=== PATIENT | female | born 1960 | race Asian ===

== ENCOUNTER 2021-01-11 15:01 | Outpatient (REF) | payer OTHER, SELFPAY ==
--- NOTE | ~2021-01-11 | MM_ITS ---
EXAMINATION: MM SCREENING DIGITAL BREAST TOMOSYNTHESIS, BILATERAL CLINICAL INFORMATION: Screening. Asymptomatic. The lifetime risk of breast cancer based on the Tyrer-Cuzick Model is 6.6%. COMPARISON: Mammography: June 02, 2018 and studies dating back to April 05, 2011 TECHNIQUE: Digital breast tomosynthesis is performed in both the craniocaudal and mediolateral oblique views along with computer-aided detection (CAD). Synthesized 2D images are generated from the tomosynthesis. FINDINGS: There are scattered areas of fibroglandular density (ACR BI-RADS breast composition Category b). There are no significant masses, abnormal calcifications, or other abnormalities. MM/MM tomosynthesis screening BI IMPRESSION: There are no significant changes from prior study. ASSESSMENT: BI-RADS 1: Negative RECOMMENDATION: Routine annual mammography screening. This patient's information was entered into a reminder system with a target due date for their next mammogram.
--- NOTE | ~2021-01-11 | MM_ITS ---
EXAMINATION: BONE DENSITOMETRY CLINICAL INDICATION: Menopausal. COMPARISON: Previous BD dated 06/02/2018 and baseline BD dated 08/24/2013. TECHNIQUE: Using a [employer] DXA System (software version: 13.1) manufactured by [employer], dual-energy x-ray absorptiometry was performed of the lumbar spine and left hip. The images are of good technical quality. Summary results are attached. FINDINGS: AP SPINE L1-L4: Current: BMD 1.243 g/cm2, Z-score 1.6, T-score 0.5, normal, 0.8% increase from previous, 1.9% decrease from baseline (<5% change is not significant). Prior: BMD 1.233 g/cm2. Baseline: BMD 1.267 g/cm2. LEFT FEMUR, NECK: Current: BMD 0.875 g/cm2, Z-score 0.0, T-score -1.2, osteopenia. Prior: BMD 0.930 g/cm2. Baseline: BMD 0.931 g/cm2. LEFT FEMUR, TOTAL: Current: BMD 1.019 g/cm2, Z-score 0.9, T-score 0.1, normal, 3.2% decrease from previous, 2.3% decrease from baseline (<5% change is not significant). Prior: BMD 1.053 g/cm2. Baseline: BMD 1.043 g/cm2. IDENTIFIED RISK FACTORS: Menopause, secondary osteoporosis. HISTORY OF FRACTURE: None listed. MEDICATIONS: Multivitamin. MM/XR DEXA axial skeleton IMPRESSION: 1. DIAGNOSIS: Osteopenia based on the lowest T-score value of -1.2 in the femoral neck applying World Health Organization criteria. 2. 10-YEAR FRACTURE RISK PREDICTION, FRAX: Major osteoporotic fracture (clinical spine, forearm, hip or shoulder) 4.1%. Hip fracture 0.3%. 3. Treatment Recommendations: NOF guidelines recommend consideration for treatment in postmenopausal women and men age 50 and older presenting with the following: -A hip or vertebral (clinical or morphometric) fracture. -T-score less than or equal to -2.5 at the femoral neck or spine after appropriate evaluation to exclude secondary causes. -Low bone mass at the hip or spine and a 10-year fracture probability by FRAX of greater than or equal to 3% for hip fracture or greater than or equal to 20% for major osteoporotic fracture based on the [place] adapted WHO algorithm. 4. Other Recommendations: All treatment decisions require clinical judgment and consideration of individual patient factors, including patient preferences, comorbidities, previous drug use, risk factors not captured in the FRAX model (e.g. frailty, falls, vitamin D deficiency, increased bone turnover, interval significant decline in bone density) and possible under or overestimation of fracture risk by FRAX. Additional medical evaluation for secondary cause of low bone mineral density may be appropriate. FUTURE SCAN RECOMMENDATION: People with diagnosed cases of osteoporosis or at high risk for fracture should have regular bone mineral density tests. For patients eligible for Medicare, routine testing is allowed once every 2 years. The testing frequency can be increased to one year for patients who have rapidly progressing disease, those who are receiving or discontinuing medical therapy to restore bone mass, or have additional risk factors.
== END 2021-01-11 15:02 | disposition home or self-care (01) ==
LOC: HO.MAMMO 15:01
PROVIDERS: PCP Pediatrics; Visit Provider Pediatrics
DX: Z12.31 Encounter for screening mammogram for malignant neoplasm of breast (principal); Z13.820 Encounter for screening for osteoporosis; M85.80 Other specified disorders of bone density and structure, unspecified site; Z78.0 Asymptomatic menopausal state; E55.9 Vitamin D deficiency, unspecified; Z79.899 Other long term (current) drug therapy
CPT/HCPCS: 77063; 77067; 77080

== ENCOUNTER 2021-09-17 08:25 | Outpatient (REF) | payer OTHER, SELFPAY ==
--- NOTE | ~2021-09-17 | US_ITS ---
EXAMINATION: US ABDOMEN COMPLETE CLINICAL INFORMATION: Right upper quadrant pain. COMPARISON: None TECHNIQUE: Real-time imaging of the abdominal viscera. FINDINGS: PANCREAS: Pancreas appears heterogeneous in echotexture. No focal lesion or ductal dilatation is seen. ABDOMINAL AORTA: The proximal, mid, and distal segments are normal in caliber. INFERIOR VENA CAVA: Visualized portions are normal. LIVER: Liver echotexture is normal. The liver is normal in size. The liver contour is normal. No focal hepatic lesion. There is no intrahepatic biliary duct dilatation seen. GALLBLADDER: Normal. The gallbladder is physiologically distended without evidence of stones, sludge, polyps, wall thickening or pericholecystic fluid. COMMON BILE DUCT: Normal in caliber measuring 0.5 cm in diameter. RIGHT KIDNEY: Normal. No hydronephrosis. No renal calculi or focal parenchymal lesions. The kidney measures 10.5 cm in maximum dimension. LEFT KIDNEY: Normal. No hydronephrosis. No renal calculi or focal parenchymal lesions. The kidney measures 10.8 cm in maximum dimension. SPLEEN: Normal. The spleen measures 8.4 cm in maximum dimension. FREE FLUID: None. US/US abdomen complete IMPRESSION: Heterogeneous appearance of the pancreas. Otherwise unremarkable exam.
== END 2021-09-17 08:26 | disposition home or self-care (01) ==
LOC: HO.US 08:25
PROVIDERS: PCP Pediatrics; Visit Provider Family Medicine
DX: R10.11 Right upper quadrant pain (principal)
CPT/HCPCS: 76700

== ENCOUNTER → 2021-10-11 08:58 | Outpatient (BNVA) | payer OTHER, SELFPAY | PROVIDERS: PCP Pediatrics; Referring Provider Pediatrics; Visit Provider Nurse Practitioner Family | DX: Z12.11 Encounter for screening for malignant neoplasm of colon (principal); R13.12 Dysphagia, oropharyngeal phase | CPT/HCPCS: 99202 ==

== ENCOUNTER 2021-11-09 10:03 | Day surgery (SDC) | payer OTHER, SELFPAY ==
--- NOTE | 2021-11-08 09:31 | P.CONAN_ITS ---
Documented by User: Noelle Benz NP 11/08/21 09:31 HPI - Anesthesia Eval Consult details Narrative: 61yo F for Upper Endoscopy and Colonoscopy [facility] Past Medical History Medical History Diabetes mellitus Dysphagia Elevated cholesterol HTN (hypertension) Family History Family History Mother HTN (hypertension) Cancer Father Paralysis Surgical History Surgical History History of cataract extraction Social History Social History Patient Tobacco Use Status: Never used Tobacco Use of substances other than those prescribed or required for medical reasons: No Advance Directives: No Advance Directives Information Provided: Yes Meds Allergies Allergy/AdvReac Type Severity Reaction Status Date / Time No Known Allergies Allergy Verified 11/09/21 10:16 Home Medications Medication Instructions Recorded Confirmed Last Taken Type alcohol swabs (Alcohol Prep Pads) pad TOPICAL DAILY 10/11/21 Unknown History aspirin 81 mg tablet,delayed 81 mg PO DAILY 10/11/21 11/07/21 History release chlorthalidone 25 mg tablet 12.5 mg PO DAILY 10/11/21 11/05/21 Unknown History cholecalciferol (vitamin D3) 50 50 mcg PO QAM 10/11/21 11/05/21 Unknown History mcg (2,000 unit) capsule dulaglutide 1.5 mg/0.5 mL mg SUBCUT QWEEK 10/11/21 Unknown History subcutaneous pen injector (Trulicity) ergocalciferol (vitamin D2) 1,250 1,250 mcg PO QWEEK 10/11/21 11/05/21 Unknown History mcg (50,000 unit) capsule insulin glargine 100 unit/mL (3 42 unit SUBCUT BEDTIME 10/11/21 11/05/21 Unknown History mL) subcutaneous pen (Lantus Solostar U-100 Insulin) lancets 33 gauge (TRUEplus Lancets) #100 ea 10/11/21 Unknown History lisinopril 40 mg tablet 40 mg PO QAM 10/11/21 11/05/21 Unknown History metformin 1,000 mg tablet 1,000 mg PO BID 10/11/21 11/05/21 Unknown History multivitamin-ferrous 1 tab PO QAM 10/11/21 11/05/21 Unknown History fumarate-folic acid 18 mg-400 mcg tablet (Certavite-Antioxidant) simvastatin 10 mg tablet 10 mg PO BEDTIME 10/11/21 11/05/21 Unknown History Exam Exam Date and Time: November 08, [id number] Assessment and Plan Assessment Anesthesia Assessment: Chart Reviewed Documented by User: Joselin Shay MD 11/09/21 10:48 [facility] Past Medical History Medical History Diabetes mellitus Dysphagia Elevated cholesterol HTN (hypertension) Family History Family History Mother HTN (hypertension) Cancer Father Paralysis Surgical History Surgical History History of cataract extraction History of Problems with Anesthesia: No Social History Social History Patient Tobacco Use Status: Never used Tobacco Use of substances other than those prescribed or required for medical reasons: No Advance Directives: No Advance Directives Information Provided: Yes Meds Allergies Allergy/AdvReac Type Severity Reaction Status Date / Time No Known Allergies Allergy Verified 11/09/21 10:16 Home Medications Medication Instructions Recorded Confirmed Last Taken Type alcohol swabs (Alcohol Prep Pads) pad TOPICAL DAILY 10/11/21 Unknown History aspirin 81 mg tablet,delayed 81 mg PO DAILY 10/11/21 11/07/21 History release chlorthalidone 25 mg tablet 12.5 mg PO DAILY 10/11/21 11/05/21 Unknown History cholecalciferol (vitamin D3) 50 50 mcg PO QAM 10/11/21 11/05/21 Unknown History mcg (2,000 unit) capsule dulaglutide 1.5 mg/0.5 mL mg SUBCUT QWEEK 10/11/21 Unknown History [facility] ergocalciferol (vitamin D2) 1,250 1,250 mcg PO QWEEK 10/11/21 11/05/21 Unknown History mcg (50,000 unit) capsule insulin glargine 100 unit/mL (3 42 unit SUBCUT BEDTIME 10/11/21 11/05/21 Unknown History mL) subcutaneous pen (Lantus Solostar U-100 Insulin) lancets 33 gauge (TRUEplus Lancets) #100 ea 10/11/21 Unknown History lisinopril 40 mg tablet 40 mg PO QAM 10/11/21 11/05/21 Unknown History metformin 1,000 mg tablet 1,000 mg PO BID 10/11/21 11/05/21 Unknown History multivitamin-ferrous 1 tab PO QAM 10/11/21 11/05/21 Unknown History fumarate-folic acid 18 mg-400 mcg tablet (Certavite-Antioxidant) simvastatin 10 mg tablet 10 mg PO BEDTIME 10/11/21 11/05/21 Unknown History Exam Airway Mallampati Class: II TM Dist: >3cm Neck ROM: Full Loose/Missing/Broken Teeth: No (RRR) Heart: RRR Lungs: CTA Assessment and Plan Final Anesthetic Review History of Problems with Anesthesia: No NPO: Yes ASA Class: II Final Preanesthetic Review: Meds/Allgs Chart Reviewed, Consent Obtained/Reviewed and Anes Risks/Benef Reviewed Patient Risk: Low Procedure Risk: Intermediate Anesthetic Plan Anesthetic Plan: MAC: Disposition: Standard PACU
[2021-11-09 10:11] VITALS: BMI 26.4
[2021-11-09 10:35] VITALS: BP 148/76; PULSE 78; RESP 16; TEMP 37; O2SAT 96
[2021-11-09 10:36] LABS: Glucose, Whole Blood 131 mg/dL (60-115)
[2021-11-09] MEDS: Lactated Ringers 1,000 ML 100 ML IVCONT (10:36)
--- NOTE | 2021-11-09 11:10 | MHC.SHP ---
Pre-Procedural Eval Section A Date of Service: 11/09/21 The patient is an INPATIENT: No Changes since office visit: Yes Patient answered all questions; No Cold of Flu in the past 2 weeks, No New Medical Problems and No Changes in Medication The History & Physical has been completed within 30 days and I have reviewed it.: Yes Section B Chief Complaint: Dysphagia, oropharyngeal phase,screening Allergies: Allergies Allergy/AdvReac Type Severity Reaction Status Date / Time No Known Allergies Allergy Verified 11/09/21 10:16 Plan I have reviewed the history and physical and performed a pertinent physical examination on my patient. No changes have occurred unless specified.
--- NOTE | 2021-11-09 11:11 | P.BOP_ITS ---
Brief Operative Note Date of Service: 11/09/21 Pre-op diagnosis: Colon cancer screening, intermittent dysphagia to solids Post-op diagnosis: other (Esophagitis, gastritis, gastric antral nodule, colon polyp, diverticulosis) Procedure: FLEXIBLE TRANSORAL UPPER GASTROINTESTINAL ENDOSCOPY WITH BIOPSIES AND COLONOSCOPY TILL CECUM WITH SNARE POLYPECTOMY UPPER ENDOSCOPY Consent: Indications for the procedure and potential complications of bleeding, perforation, reaction to medications and missed diagnosis were discussed with the patient and informed consent was obtained. Instrument: Olympus GIF H 190 mid size upper endoscope Monitoring: Vital signs and clinical assessment, continuous EKG monitoring, Pulse oximetry, Carbon Dioxide monitoring and blood pressure monitoring were done throughout the procedure. Procedure: The patient was placed in the left lateral decubitis position and pre-procedure medications were administered and a bite block was placed. The endoscope was inserted into the mouth and advanced under direct vision to the third part of duodenum. A careful inspection was made as the upper endoscope was withdrawn including a retroflexed examination of the proximal stomach; Findings and interventions are described below. Findings: Larynx: Normal Esophagus: GE junction at 36 cms - biopsies were obtained from the proximal esophagus to check for EOE. A single linear erosion from 32 to 34 cms. No Torres's. Stomach: A 1.5 to 2 cms benign appearing nodule with central erosion in the pre- pyloric area - multiple biopsies were obtained. Mild gastric erythema. Biopsies were obtained. Grade 2 flap valve on retroflexed examination of the cardia. Duodenum: Normal bulb and descending duodenum Intervention: Biopsies as noted above COLONOSCOPY PROCEDURE NOTE Consent: Indications for the procedure and potential complications of bleeding, perforation, reaction to medications and missed diagnosis were discussed with the patient and informed consent was obtained. Instrument: Olympus PCF H 190 L variable stiffness pediatric colonoscope Monitoring: Vital signs and clinical assessment, intermittent blood pressure monitoring, continuous EKG monitoring, Pulse oximetry and Carbon Dioxide monitoring were done throughout the procedure. Colon withdrawl time was 16 minutes. Procedure: The patient was placed in the left lateral decubitis position and pre-procedure medications were administered. After a digital rectal examination of the ano-rectum, the video colonoscope was inserted into the rectum and advanced through the colon to the cecum. The colonoscope was slowly withdrawn in a retrograde panoramic fashion and the colon mucosa was carefully examined including a retroflexed view of the rectum. Findings and interventions are described below. Procedure Difficulty: : Without difficulty Findings: Terminal Ileum: Not evaluated Cecum: Normal Ascending Colon: An 8 to 10 mm adenomatous appearing polyp in the proximal transverse colon removed with a cold snare. Transverse Colon: Normal Descending Colon: Normal Sigmoid Colon: Moderate diverticulosis Rectum: Normal Ano-rectum: Normal Colon preparation: Good after copious irrigation Impression and Post Procedure Diagnosis: Endoscopy Findings: ESOPHAGUS: GE junction at 36 cms - biopsies were obtained from the proximal esophagus to check for EOE. A single linear erosion from 32 to 34 cms. No Torres's STOMACH: A 1.5 to 2 cms benign appearing nodule with central erosion in the pre- pyloric area - multiple biopsies were obtained. Mild gastric erythema. Biopsies were obtained. Colonoscopy Findings: One medium sized polyp removed Moderate diverticulosis seen in the sigmoid colon Dysphagia can be due to esophageal spasm associated with GERD or esophageal motility disorder. Plan: Await pathology results Patient has an appointment on 11/30/21 in the GI Clinic with Lynn Camarillo FNP- [place] . If patient has continuing problems with dysphagia, consider further evaluation with a barium swallow. Repeat Colonoscopy interval based on path results - in 3 years if polyps are adenomatous and 10 years if polyps are hyperplastic. Above findings were reviewed with the patient and her daughter and GERD, colon p olyps and diverticulosis handouts were given in the discharge area Patient was advised to start omeprazole 20 mg daily for GERD - prescription was sent to her preferred pharmacy. Surgeon: Terry Freeman MD Anesthesia: MAC Was an Power Tool Repair Technician used for this Procedure?: No Power Tool Repair Technician: Ava Colbert Estimated blood loss (mL): 0 Pathology: other ( A- ANTRAL NODULES BIOPSIES B- GASTRIC ANTRUM - R/O H.PYLORI C- PROXIMAL ESOPHAGUS - R/O EOE D- ASCENDING COLON POLYP) Condition: stable Disposition: PACU
--- NOTE | 2021-11-09 11:11 | P.OP_ITS ---
Operative Note Operative Note Date of Service: 11/09/21 Narrative: Pre-op diagnosis: Colon cancer screening, intermittent dysphagia to solids Post-op diagnosis:?other (Esophagitis, gastritis, gastric antral nodule, colon polyp, diverticulosis) Procedure: FLEXIBLE TRANSORAL UPPER GASTROINTESTINAL ENDOSCOPY WITH BIOPSIES AND COLONOSCOPY TILL CECUM WITH SNARE POLYPECTOMY UPPER ENDOSCOPY Consent:?Indications for the procedure and potential complications of bleeding, perforation, reaction to medications and missed diagnosis were discussed with the patient and informed consent was obtained. Instrument:?Olympus GIF H 190 mid size upper endoscope Monitoring: Vital signs and clinical assessment, continuous EKG monitoring, Pulse oximetry, Carbon Dioxide monitoring and blood pressure monitoring were done throughout the procedure. Procedure:?The patient was placed in the left lateral decubitis position and pre-procedure medications were administered and a bite block was placed. The endoscope was inserted into the mouth and advanced under direct vision to the third part of duodenum. A careful inspection was made as the upper endoscope was withdrawn including a retroflexed examination of the proximal stomach; Findings and interventions are described below. Findings: Larynx:? Normal Esophagus:?GE junction at 36 cms - biopsies were obtained from the proximal esophagus to check for EOE. A single linear erosion from 32 to 34 cms. No Torres's. Stomach:?A 1.5 to 2 cms benign appearing nodule with central erosion in the pre- pyloric area - multiple biopsies were obtained.? Mild gastric erythema. Biopsies were obtained. Grade 2 flap valve on retroflexed examination of the cardia. Duodenum:?Normal bulb and descending duodenum Intervention:?Biopsies as noted above COLONOSCOPY PROCEDURE NOTE Consent:?Indications for the procedure and potential complications of bleeding, perforation, reaction to medications and missed diagnosis were discussed with the patient and informed consent was obtained. Instrument:?Olympus PCF H 190 L variable stiffness pediatric colonoscope Monitoring:?Vital signs and clinical assessment, intermittent blood pressure monitoring, continuous EKG monitoring, Pulse oximetry and Carbon Dioxide monitoring were done throughout the procedure. Colon withdrawl time was 16 minutes. Procedure:?The patient was placed in the left lateral decubitis position and pre-procedure medications were administered. After a digital rectal examination of the ano-rectum, the video colonoscope was inserted into the rectum and advanced through the colon to the cecum. The colonoscope was slowly withdrawn in a retrograde panoramic fashion and the colon mucosa was carefully examined including a retroflexed view of the rectum. Findings and interventions are described below. Procedure Difficulty:?: Without difficulty Findings: Terminal Ileum: Not evaluated Cecum:? Normal Ascending Colon:??An 8 to 10 mm adenomatous appearing polyp in the proximal transverse colon removed with a cold snare. Transverse Colon:??Normal Descending Colon:? Normal Sigmoid Colon:??Moderate diverticulosis Rectum:??Normal Ano-rectum:??Normal Colon preparation:? Good after copious irrigation Impression and Post Procedure Diagnosis: Endoscopy Findings: ESOPHAGUS: GE junction at 36 cms - biopsies were obtained from the proximal esophagus to check for EOE. A single linear erosion from 32 to 34 cms. No Torres's STOMACH: A 1.5 to 2 cms benign appearing nodule with central erosion in the pre- pyloric area - multiple biopsies were obtained.? Mild gastric erythema. Biopsies were obtained. Colonoscopy Findings: One medium sized polyp removed Moderate diverticulosis seen in the sigmoid colon Dysphagia can be due to esophageal spasm associated with GERD or esophageal motility disorder. Plan: Await pathology results Patient has an appointment on 11/30/21 in the GI Clinic with Lynn Camarillo FNP- [place] . If patient has continuing problems with dysphagia, consider further evaluation with a barium swallow. Repeat Colonoscopy interval based on path results - in 3 years if polyps are adenomatous and 10 years if polyps are hyperplastic. Above findings were reviewed with the patient and her daughter and GERD, colon polyps and diverticulosis handouts were given in the discharge area Patient was advised to start omeprazole 20 mg daily for GERD - prescription was sent to her preferred pharmacy. Surgeon: Terry Freeman MD Anesthesia:?MAC Was an Recreation Programmer used for this Procedure?:?No Recreation Programmer:?Ava Colbert Estimated blood loss (mL):?0 Pathology:?other ( A- ANTRAL NODULES BIOPSIES? B- GASTRIC ANTRUM - R/O H.PYLORI? C- PROXIMAL ESOPHAGUS - R/O EOE? D- ASCENDING COLON POLYP) Condition:?stable Disposition:?PACU
[2021-11-09 12:20] VITALS: BP 93/55; PULSE 87; RESP 16; TEMP 36.3; O2SAT 99
[2021-11-09 12:35] VITALS: BP 126/74; PULSE 69; RESP 18; O2SAT 99
[2021-11-09 12:50] VITALS: BP 160/76; PULSE 64; RESP 18; TEMP 36.6; O2SAT 99
== END 2021-11-09 13:32 | disposition home or self-care (01) ==
PROVIDERS: PCP Pediatrics; Visit Provider Internal Medicine Gastroenterology
PROC: (CPT 45385; principal; 2021-11-09 11:10)
DX: Z12.11 Encounter for screening for malignant neoplasm of colon (principal); D12.2 Benign neoplasm of ascending colon; K57.30 Diverticulosis of large intestine without perforation or abscess without bleeding; R13.12 Dysphagia, oropharyngeal phase; Z80.8 Family history of malignant neoplasm of other organs or systems; K20.80 Other esophagitis without bleeding; K29.50 Unspecified chronic gastritis without bleeding; B96.81 Helicobacter pylori [H. pylori] as the cause of diseases classified elsewhere; K31.7 Polyp of stomach and duodenum; I10 Essential (primary) hypertension; E78.00 Pure hypercholesterolemia, unspecified; E11.9 Type 2 diabetes mellitus without complications; Z79.4 Long term (current) use of insulin; Z79.899 Other long term (current) drug therapy; Z79.82 Long term (current) use of aspirin
CPT/HCPCS: 45385; 43239; 82947; 88305; 88342

== ENCOUNTER → 2021-11-30 10:14 | Outpatient (BNVA) | payer OTHER, SELFPAY | PROVIDERS: PCP Pediatrics; Referring Provider Pediatrics; Visit Provider Nurse Practitioner Family | DX: K57.90 Diverticulosis of intestine, part unspecified, without perforation or abscess without bleeding (principal); K21.00 Gastro-esophageal reflux disease with esophagitis, without bleeding; A04.8 Other specified bacterial intestinal infections; R10.32 Left lower quadrant pain | CPT/HCPCS: 99212 ==

== ENCOUNTER 2022-04-16 11:36 | Outpatient (REF) | payer OTHER, SELFPAY ==
[2022-04-18 15:35] LABS: H Pylori Breath Test Negative (Negative)
== END 2022-04-16 11:37 | disposition home or self-care (01) ==
LOC: HO.LAB 11:36
PROVIDERS: PCP Pediatrics; Visit Provider Nurse Practitioner Family
DX: K58.9 Irritable bowel syndrome, unspecified (principal); K21.00 Gastro-esophageal reflux disease with esophagitis, without bleeding; A04.8 Other specified bacterial intestinal infections; R13.12 Dysphagia, oropharyngeal phase; R60.0 Localized edema
CPT/HCPCS: 36415; 83013; 86003; 99212

== ENCOUNTER → 2022-07-09 10:54 | Outpatient (BNVA) | payer OTHER, SELFPAY | PROVIDERS: PCP Pediatrics; Visit Provider Nurse Practitioner Family | DX: K21.00 Gastro-esophageal reflux disease with esophagitis, without bleeding (principal); K59.04 Chronic idiopathic constipation; R60.0 Localized edema; Z79.899 Other long term (current) drug therapy | CPT/HCPCS: 99212 ==

== ENCOUNTER 2022-09-17 09:39 | Outpatient (REF) | payer OTHER, SELFPAY ==
--- NOTE | ~2022-09-17 | XR_ITS ---
EXAMINATION: XR CHEST 2 VIEWS CLINICAL INFORMATION: Raynaud's syndrome. COMPARISON: None. TECHNIQUE: Frontal and lateral views of the chest were obtained. FINDINGS: The heart, great vessels, pulmonary vasculature and mediastinum are normal. The lungs show no focal infiltrate, effusion or pneumothorax. There is no acute osseous abnormality. XR/XR chest 2V IMPRESSION: No active cardiopulmonary disease.
[2022-09-17 11:44] LABS: MANUAL DIFF FLAG NO
[2022-09-17 12:38] LABS: Basophils Percent Auto 0.5 % (0-2); Eosinophils Absolute Auto 0.5 X10*3/uL (0.0-0.4); Eosinophils Percent Auto 6.8 % (0-4); Hematocrit 27.1 % (37.0-47.0); Hemoglobin 7.9 g/dl (12.0-16.0); Imm Gran Abs Auto 0.03 X10*3/uL (0.00-0.03); Imm Gran Pct Auto 0.4 % (0.0-0.4); Lymphocytes Absolute Auto 2.9 X10*3/uL (1.2-4.9); Lymphocytes Percent Auto 35.8 % (20-40); Mean Corpuscular HGB Conc 29.2 g/dl (31.0-35.0); Mean Corpuscular Hemoglobin 20.5 pg (27.0-33.0); Mean Corpuscular Volume 70.4 fL (80.0-98.0); Mean Platelet Volume 9.9 fL (9.4-12.3); Monocytes Absolute Auto 0.5 X10*3/uL (0.1-1.2); Monocytes Percent Auto 6.3 % (2-11); Neutrophils Percent Auto 50.2 % (45-73); Platelet Count 446 X10*3/uL (160-400); Red Blood Count 3.85 X10*6/uL (4.20-5.50); Red Cell Distribution Width 15.9 % (11.0-16.0)
[2022-09-17 13:21] LABS: Alanine Aminotransferase 12 U/L (0-31); Alkaline Phosphatase 70 U/L (39-117); Anion Gap 14 (12-20); Aspartate Amino Transferase 12 U/L (5-31); Bilirubin Total 0.3 mg/dL (0.0-1.0); Blood Urea Nitrogen 13 mg/dL (9-16); C Reactive Protein 0.55 mg/dL (< or = 0.50); Calcium 9.7 mg/dL (8.4-10.2); Carbon Dioxide 24 mmol/L (22-29); Chloride 109 mmol/L (96-108); Estimated Glomerular Filt Rate > 60; Glucose Random 170 mg/dL (60-115); Potassium 4.7 mmol/L (3.3-5.1); Sodium 142 mmol/L (135-145); Total Protein 6.9 g/dL (6.5-8.0)
[2022-09-17 13:52] LABS: Erythrocyte Sedimentation Rate 30 MM/HR (0-20)
[2022-09-17 15:02] LABS: Creatinine Urine 112.19 mg/dL; Protein/Creatinine Ratio, Ur 0.07 (<0.2); Total Protein Urine Random 8 mg/dL (<12)
[2022-09-20 13:43] LABS: Anti-Centromere B Antibodies >8.0 POS AI (<1.0 NEG); Antibody to SS-A Antigen <1.0 NEG AI (<1.0 NEG); Antibody to SS-B Antigen <1.0 NEG AI (<1.0 NEG); Scleroderma 70 Antibody <1.0 NEG AI (<1.0 NEG)
[2022-09-20 15:18] LABS: Anti Nuclear Antibody Pattern Nuclear, Centromere; Anti Nuclear Antibody Screen POSITIVE (NEGATIVE); Anti Nuclear Antibody Titer > OR = 1:1280 titer
== END 2022-09-17 09:40 | disposition home or self-care (01) ==
LOC: HO.LAB 09:39
PROVIDERS: PCP Pediatrics; Visit Provider Internal Medicine Rheumatology
DX: I73.00 Raynaud's syndrome without gangrene (principal); R05.9 Cough, unspecified; M79.643 Pain in unspecified hand; R01.1 Cardiac murmur, unspecified
CPT/HCPCS: 36415; 71046; 80053; 84156; 85025; 85652; 86038; 86039; 86140; 86235; 99202

== ENCOUNTER → 2022-09-25 13:10 | Outpatient (REF) | payer OTHER, SELFPAY ==
--- NOTE | 2022-09-25 13:13 | CA_ITS ---
Transthoracic Echocardiogram Patient (Last, First, Middle): Brandon Mcgee, Gender: Female Date of : 1960 Age: 62 Procedure Date: 09/25/2022 Procedure Type: Transthoracic Echocardiogram Location: OP Height: 160.02 cm Weight: 70.76 kg BSA: 1.74 m2 Heart Rate: bpm BP: 140 / 72 mmHg Insecticide Expert: TO Referring MD: Tc Alfreod MD Symptoms: R01.1 - Cardiac murmur, unspecified Study Quality: Fair ECG Rhythm: Sinus Conclusions: - The left ventricular systolic function is normal. The calculated ejection fraction is 67% by biplane method. - There is mild septal asymmetric hypertrophy. - There is mild calcification of the aortic valve. - No obvious valvular pathology seen on this study. Findings Left Ventricle Normal left ventricular cavity size. There is normal left ventricular wall thickness. The left ventricular systolic function is normal. The calculated ejection fraction is 67% by biplane method. There is no evidence of regional wall motion abnormalities. Diastolic function is normal for age. There is mild septal asymmetric hypertrophy. LV peak GLS -17.4%. Right Ventricle Normal right ventricular cavity size and systolic function. Atria Both atria are normal in size. Aortic Valve There is a normal trileaflet aortic valve. There is mild calcification of the aortic valve. There is no aortic valve stenosis. There is no aortic valve regurgitation. Mitral Valve The mitral valve appears normal. There is no mitral valve regurgitation. There is no mitral valve stenosis. Pulmonic Valve The pulmonic valve is likely normal. Tricuspid Valve There is trace tricuspid valve regurgitation. Tricuspid regurgitation envelope is inadequate for calculation of right ventricular systolic pressure. Great Vessels The asc aorta is normal in size. Venous The inferior vena cava is normal in size and collapses greater than 50% with inspiration. Pericardium/Pleural There is no evidence of pericardial effusion. Prior Study Comparison No prior study available for comparison. Recommendations, Care & Conclusions No obvious valvular pathology seen on this study. Measurements 2D Linear Measurements IVSd: 0.93 0.6-0.9/0.6-1.0 cm LVIDd: 3.72 3.9-5.3/4.2-5.9 cm LVIDd Index: 2.14 2.4-3.2/2.2-3.1 cm/m2 LVIDs: 2.46 2.0-3.6 cm LVPWd: 0.76 0.7-1.1 cm LA Diam: 3.20 2.7-3.8/3.0-4.0 cm LAIDs Index: 1.84 1.5-2.3 cm/m2 LV Mass: 111.50 67-162/88-224 g LV Mass Index: 64.08 43-95/49-115 g/m2 LVOT Diam: 1.80 3.0+(-)1.3 cm 2D Systolic Function EF 4C: 64.70 >55% EF 2C: 68.00 >55% EF BiP: 66.80 >55% Mitral Valve MV Pk E: 0.94 MV PK A: 1.05 MV Decel Time: 169.00 E/A: 0.90 E'Lateral: 8.59 E'Medial: 7.40 E/E' Med: 12.70 E/E' Lat: 10.90 PHT: 49.00 MVA PHT: 4.49 Decel [place]: 5.56 Aortic Valve AoV Pk Nick: 2.06 AoV Mn Nick: 1.39 AoV VTI: 0.40 AoV Pk Grad: 17.00 Aov Mn Grad: 9.00 ISABELLA Cont.VTI: 1.70 LVOT LVOT Pk Nick: 1.40 LVOT Mn Nick: 0.96 LVOT VTI: 0.27 LVOT Pk Grad: 8.00 LVOT Mn Grad: 4.00 LVOT Diam: 1.80 LVOT Area: 2.54 Diastolic Function MV Pk E: 0.94 MV Pk A: 1.05 E/A: 0.90 E'Medial: 7.40 E/E' Med: 12.70 E' Laterial: 8.59 E/E' Lat: 10.90 Right Ventricle TAPSE (mm): 26.90 TVS' Nick: 15.10 Tricuspid Valve RA Press: 3.00 Great Vessels Aorta Sinus of Valsalva: 2.89 2.0-3.5 cm Ao Asc: 3.30 2.1-3.4 cm Updated in Other Vendor System with Status of Final Veto Peters MD electronically signed on 09/26/2022 4:41:31 PM with status of Final
[2022-09-25 14:32] LABS: MANUAL DIFF FLAG NO
[2022-09-25 15:21] LABS: Basophils Absolute Auto 0.1 X10*3/uL (0.0-0.2); Basophils Percent Auto 0.8 % (0-2); Eosinophils Absolute Auto 0.4 X10*3/uL (0.0-0.4); Eosinophils Percent Auto 4.6 % (0-4); Hematocrit 27.2 % (37.0-47.0); Hemoglobin 7.9 g/dl (12.0-16.0); Imm Gran Abs Auto 0.05 X10*3/uL (0.00-0.03); Imm Gran Pct Auto 0.5 % (0.0-0.4); Lymphocytes Absolute Auto 2.9 X10*3/uL (1.2-4.9); Lymphocytes Percent Auto 30.3 % (20-40); Mean Corpuscular Hemoglobin 20.1 pg (27.0-33.0); Mean Platelet Volume 9.7 fL (9.4-12.3); Monocytes Absolute Auto 0.5 X10*3/uL (0.1-1.2); Monocytes Percent Auto 5.4 % (2-11); Neutrophils Absolute Auto 5.6 x10*3/uL (2.0-8.3); Neutrophils Percent Auto 58.4 % (45-73); Platelet Count 474 X10*3/uL (160-400); Red Blood Count 3.94 X10*6/uL (4.20-5.50); Red Cell Distribution Width 15.9 % (11.0-16.0); White Blood Count 9.6 X10*3/uL (4.8-10.8)
[2022-09-25 15:44] LABS: Iron 12 mcg/dL (30-160); Percent Iron Saturation 3 % (15-50); Total Iron Binding Capacity 399 mcg/dL (228-428); Unsaturated Iron Binding 387 ug/dL
[2022-09-27 12:53] LABS: Anti DNA DS Antibody <1 IU/mL; SM/Ribonucleoprotein Ab <1.0 NEG AI (<1.0 NEG); Smith Protein <1.0 NEG AI (<1.0 NEG)
[2022-09-28 06:34] LABS: Complement C3 145 mg/dL (83-193)
[2022-09-28 14:22] LABS: Haptoglobin 177 mg/dL (43-212)
== END ==
LOC: HO.CARD 13:10
PROVIDERS: Visit Provider Internal Medicine Rheumatology
DX: I73.00 Raynaud's syndrome without gangrene (principal); R01.1 Cardiac murmur, unspecified; R76.8 Other specified abnormal immunological findings in serum; D64.9 Anemia, unspecified
CPT/HCPCS: 36415; 83010; 83540; 85025; 86160; 86225; 86235; 93306; 93356

== ENCOUNTER → 2022-10-02 10:56 | Outpatient (BNVA) | payer OTHER, SELFPAY | PROVIDERS: PCP Pediatrics; Visit Provider Internal Medicine Rheumatology | DX: I73.00 Raynaud's syndrome without gangrene (principal); R76.8 Other specified abnormal immunological findings in serum; M34.1 CR(E)ST syndrome; D50.9 Iron deficiency anemia, unspecified | CPT/HCPCS: 99212 ==

== ENCOUNTER → 2022-10-03 09:00 | Outpatient (BNV) | payer BC, OTHER, SELFPAY | PROVIDERS: PCP Pediatrics; Visit Provider Internal Medicine | DX: D50.9 Iron deficiency anemia, unspecified (principal) | CPT/HCPCS: 99204; 99213; 99214; G2211 ==

== ENCOUNTER 2022-10-08 15:12 | Outpatient (REF) | payer OTHER, SELFPAY ==
--- NOTE | ~2022-10-08 | XR_ITS ---
EXAMINATION: XR BILATERAL HAND CLINICAL INFORMATION: Bilateral hand pain. COMPARISON: None. TECHNIQUE: 3 views each hand. FINDINGS: RIGHT HAND: There is no visible fracture, dislocation or subluxation is seen. There is loss of PIP and DIP joint space. No bony erosive changes. No soft tissue swelling. No fracture or dislocation. LEFT HAND: There is mild loss of PIP and DIP joint spaces without any erosive changes or loose bodies. No osteopenia. No acute fracture or dislocation. Soft tissues are unremarkable. XR/XR hand RT min 3V IMPRESSION: Mild degenerative changes PIP and DIP joints both hands. No visible acute fracture, dislocation or subluxation seen.
--- NOTE | ~2022-10-08 | XR_ITS ---
EXAMINATION: XR BILATERAL HAND CLINICAL INFORMATION: Bilateral hand pain. COMPARISON: None. TECHNIQUE: 3 views each hand. FINDINGS: RIGHT HAND: There is no visible fracture, dislocation or subluxation is seen. There is loss of PIP and DIP joint space. No bony erosive changes. No soft tissue swelling. No fracture or dislocation. LEFT HAND: There is mild loss of PIP and DIP joint spaces without any erosive changes or loose bodies. No osteopenia. No acute fracture or dislocation. Soft tissues are unremarkable. XR/XR hand LT min 3V IMPRESSION: Mild degenerative changes PIP and DIP joints both hands. No visible acute fracture, dislocation or subluxation seen.
[2022-10-08 16:01] LABS: MANUAL DIFF FLAG NO
[2022-10-08 16:27] LABS: Basophils Percent Auto 0.3 % (0-2); Eosinophils Absolute Auto 0.5 X10*3/uL (0.0-0.4); Eosinophils Percent Auto 5.7 % (0-4); Hematocrit 27.3 % (37.0-47.0); Hemoglobin 7.8 g/dl (12.0-16.0); Imm Gran Abs Auto 0.02 X10*3/uL (0.00-0.03); Imm Gran Pct Auto 0.2 % (0.0-0.4); Lymphocytes Absolute Auto 2.8 X10*3/uL (1.2-4.9); Lymphocytes Percent Auto 30.9 % (20-40); Mean Corpuscular HGB Conc 28.6 g/dl (31.0-35.0); Mean Platelet Volume 9.7 fL (9.4-12.3); Monocytes Absolute Auto 0.7 X10*3/uL (0.1-1.2); Monocytes Percent Auto 7.4 % (2-11); Neutrophils Absolute Auto 4.9 x10*3/uL (2.0-8.3); Neutrophils Percent Auto 55.5 % (45-73); Platelet Count 398 X10*3/uL (160-400); Red Cell Distribution Width 20.4 % (11.0-16.0); White Blood Count 8.9 X10*3/uL (4.8-10.8)
== END 2022-10-08 15:13 | disposition home or self-care (01) ==
LOC: HO.XRAY 15:12
PROVIDERS: PCP Pediatrics; Visit Provider Internal Medicine Rheumatology
DX: I73.00 Raynaud's syndrome without gangrene (principal); M34.1 CR(E)ST syndrome; D50.9 Iron deficiency anemia, unspecified
CPT/HCPCS: 36415; 73130; 85025

== ENCOUNTER 2022-10-10 08:18 | Outpatient (REF) | payer OTHER, SELFPAY ==
[2022-10-10 11:23] LABS: Lipase 97 U/L (8-78)
[2022-10-10 12:26] LABS: Vitamin B12 234 pg/mL (200-900)
[2022-10-14 21:24] LABS: Transglutaminase Ab IgG 1.3 U/mL; Transglutaminase IgA <1.0 U/mL
[2022-10-16 04:47] LABS: Vitamin A 55 mcg/dL (38-98)
[2022-10-16 18:08] LABS: Vitamin K1 676 pg/mL (130-1500)
[2022-10-16 19:17] LABS: Vitamin D 25-OH, D2 <4 ng/mL; Vitamin D 25-OH, D3 39 ng/mL; Vitamin D 25-OH, Total 39 ng/mL (30-100)
== END 2022-10-10 08:19 | disposition home or self-care (01) ==
LOC: HO.LAB 08:18
PROVIDERS: PCP Pediatrics; Visit Provider Nurse Practitioner Family
DX: K21.00 Gastro-esophageal reflux disease with esophagitis, without bleeding (principal); K58.2 Mixed irritable bowel syndrome; K59.04 Chronic idiopathic constipation; K86.89 Other specified diseases of pancreas; D50.9 Iron deficiency anemia, unspecified; R10.9 Unspecified abdominal pain; E55.9 Vitamin D deficiency, unspecified
CPT/HCPCS: 36415; 82306; 82607; 82746; 83690; 84590; 84597; 86003; 86364

== ENCOUNTER 2022-10-11 14:18 | Outpatient (REF) | payer OTHER, SELFPAY ==
[2022-10-22 13:09] LABS: Pancreatic Elastase-1 >500 mcg/g
== END 2022-10-11 14:19 | disposition home or self-care (01) ==
LOC: HO.LNP 14:18
PROVIDERS: Visit Provider Nurse Practitioner Family
DX: R10.9 Unspecified abdominal pain (principal)
CPT/HCPCS: 82656

== ENCOUNTER 2022-10-14 12:06 | Day surgery (SDC) | payer OTHER, SELFPAY ==
--- NOTE | 2022-10-11 12:31 | P.CONAN_ITS ---
Documented by User: Noelle Benz NP 10/11/22 12:32 HPI - Anesthesia Eval Consult details Narrative: 62yo F for Upper Endoscopy and Colonoscopy severe ALANA followed by Heme. Current tx with PO iron, pending infusion tx s/p [place] and EGD 11/2021 with [facility] Active Problems Active Problems: All Active Problems (Updated 10/11/22 @ 10:49 by Lynn Camarillo, [facility]) CREST syndrome (Acute) Iron deficiency anemia (Acute) Positive DAVI (antinuclear antibody) (Acute) Cough (Acute) Raynauds phenomenon (Acute) Heart murmur, systolic (Acute) Chronic hand pain (Acute) HTN (hypertension) (Acute) Elevated cholesterol (Acute) Diabetes mellitus (Acute) Bilateral lower extremity edema (Acute) Helicobacter pylori infection (Acute) GERD with esophagitis (Acute) Past Medical History Medical History Bilateral lower extremity edema Diabetes mellitus Dysphagia Elevated cholesterol Helicobacter pylori infection HTN (hypertension) Family History Family History Mother HTN (hypertension) Cancer Father Paralysis Surgical History Surgical History History of cataract extraction Hx of colonoscopy Hx of esophagogastroduodenoscopy History of Problems with Anesthesia: No Social History Social History Household Members: Spouse and Family Housing: House Alcohol intake: current Alcohol intake frequency: does not drink Patient Tobacco Use Status: Never used Tobacco Use of substances other than those prescribed or required for medical reasons: No Are you DNR?: No Advance Directives: No Advance Directives Information Provided: Yes Current occupational status: unemployed Meds Allergies Allergy/AdvReac Type Severity Reaction Status Date / Time No Known Allergies Allergy Verified 10/10/22 08:30 Home Medications Medication Instructions Recorded Confirmed Last Taken Type alcohol swabs (Alcohol Prep Pads) pad topical DAILY PRN Outbreak 10/11/21 10/02/22 Unknown History aspirin 81 mg tablet,delayed 81 mg PO DAILY 10/11/21 10/03/22 11/07/21 History release cholecalciferol (vitamin D3) 50 50 mcg PO QAM 10/11/21 10/03/22 Unknown History mcg (2,000 unit) capsule dulaglutide 1.5 mg/0.5 mL 0.05 mg subcut QWEEK 10/11/21 10/03/22 Unknown History subcutaneous pen injector (Trulicity) ergocalciferol (vitamin D2) 1,250 1,250 mcg PO QWEEK 10/11/21 10/03/22 Unknown History mcg (50,000 unit) capsule insulin glargine 100 unit/mL (3 42 unit subcut BEDTIME 10/11/21 10/03/22 Unknown History mL) subcutaneous pen (Lantus Solostar U-100 Insulin) lancets 33 gauge (TRUEplus Lancets) #100 ea 10/11/21 10/02/22 Unknown History lisinopril 40 mg tablet 40 mg PO QAM 10/11/21 10/03/22 Unknown History metformin 1,000 mg tablet 1,000 mg PO BID 10/11/21 10/03/22 Unknown History multivitamin-ferrous 1 tab PO QAM 10/11/21 10/03/22 Unknown History fumarate-folic acid 18 mg-400 mcg tablet (Certavite-Antioxidant) simvastatin 10 mg tablet 10 mg PO BEDTIME 10/11/21 10/03/22 Unknown History caoxcvbg-tze-thjbr acid 0.4 1 tab PO DAILY 09/17/22 10/03/22 Unknown History mg-lycopene 300 mcg-lutein 250 mcg tablet (Cerovite Senior) mupirocin 2 % topical ointment 1 appl topical TID 09/17/22 10/03/22 Unknown History ferrous sulfate 325 mg (65 mg 325 mg PO DAILY 10/02/22 10/03/22 Unknown History iron) tablet (FeroSul) nifedipine 60 mg tablet,extended 60 mg PO DAILY 10/02/22 10/03/22 Unknown History release Exam Exam Date and Time: October 11, 2022 1231 Pertinent Lab Results Pertinent Lab Results: Laboratory Tests 09/17/22 10/08/22 11:43 16:00 WBC 8.9 Hgb 7.8 L Hct 27.3 L Plt Count 398 Sodium 142 Potassium 4.7 Chloride 109 H Carbon Dioxide 24 BUN 13 Creatinine 0.83 Assessment and Plan Assessment Anesthesia Assessment: Chart Reviewed Final Anesthetic Review History of Problems with Anesthesia: No Documented by User: Tamy Layne MD 10/14/22 13:01 [facility] Past Medical History Medical History Bilateral lower extremity edema Diabetes mellitus Dysphagia Elevated cholesterol Helicobacter pylori infection HTN (hypertension) Family History Family History Mother HTN (hypertension) Cancer Father Paralysis Family history of problems with anesthesia: No Surgical History Surgical History History of cataract extraction Hx of colonoscopy Hx of esophagogastroduodenoscopy Social History Social History Household Members: Spouse and Family Housing: House Alcohol intake: current Alcohol intake frequency: does not drink Patient Tobacco Use Status: Never used Tobacco Use of substances other than those prescribed or required for medical reasons: No Are you DNR?: No Advance Directives: No Advance Directives Information Provided: Yes Current occupational status: unemployed Meds Allergies Allergy/AdvReac Type Severity Reaction Status Date / Time No Known Allergies Allergy Verified 10/10/22 08:30 Home Medications Medication Instructions Recorded Confirmed Last Taken Type alcohol swabs (Alcohol Prep Pads) pad topical DAILY PRN Outbreak 10/11/21 10/02/22 Unknown History aspirin 81 mg tablet,delayed 81 mg PO DAILY 10/11/21 10/03/22 11/07/21 History release cholecalciferol (vitamin D3) 50 50 mcg PO QAM 10/11/21 10/03/22 Unknown History mcg (2,000 unit) capsule dulaglutide 1.5 mg/0.5 mL 0.05 mg subcut QWEEK 10/11/21 10/03/22 Unknown History subcutaneous pen injector (Trulicity) ergocalciferol (vitamin D2) 1,250 1,250 mcg PO QWEEK 10/11/21 10/03/22 Unknown History mcg (50,000 unit) capsule insulin glargine 100 unit/mL (3 42 unit subcut BEDTIME 10/11/21 10/03/22 Unknown History mL) subcutaneous pen (Lantus Solostar U-100 Insulin) lancets 33 gauge (TRUEplus Lancets) #100 ea 10/11/21 10/02/22 Unknown History lisinopril 40 mg tablet 40 mg PO QAM 10/11/21 10/03/22 Unknown History metformin 1,000 mg tablet 1,000 mg PO BID 10/11/21 10/03/22 Unknown History multivitamin-ferrous 1 tab PO QAM 10/11/21 10/03/22 Unknown History fumarate-folic acid 18 mg-400 mcg tablet (Certavite-Antioxidant) simvastatin 10 mg tablet 10 mg PO BEDTIME 10/11/21 10/03/22 Unknown History kjornvta-xrn-uqglr acid 0.4 1 tab PO DAILY 09/17/22 10/03/22 Unknown History mg-lycopene 300 mcg-lutein 250 mcg tablet (Cerovite Senior) mupirocin 2 % topical ointment 1 appl topical TID 09/17/22 10/03/22 Unknown History ferrous sulfate 325 mg (65 mg 325 mg PO DAILY 10/02/22 10/03/22 Unknown History iron) tablet (FeroSul) nifedipine 60 mg tablet,extended 60 mg PO DAILY 10/02/22 10/03/22 Unknown History release Exam Airway Mallampati Class: II TM Dist: >3cm Neck ROM: Full Heart: rr Lungs: cta Assessment and Plan Assessment Anesthesia Assessment: Anesthesia Plan Discussed and Chart Reviewed Final Anesthetic Review Family History of Problems with Anesthesia: No NPO: Yes ASA Class: II Final Preanesthetic Review: No Changes in Pt Med Stat, Meds/Allgs Chart Reviewed, Consent Obtained/Reviewed and Anes Risks/Benef Reviewed Patient Risk: Low Procedure Risk: Low Anesthetic Plan Anesthetic Plan: MAC: Disposition: Standard PACU
[2022-10-14 12:35] VITALS: BMI 27.1
[2022-10-14 12:41] VITALS: BP 130/69; PULSE 87; RESP 17; TEMP 36.6; O2SAT 99
[2022-10-14] MEDS: Lactated Ringers 1,000 ML 100 ML IVCONT (12:47)
[2022-10-14 12:55] LABS: Glucose, Whole Blood 172 mg/dL (60-115)
--- NOTE | 2022-10-14 13:21 | MHC.SHP ---
Pre-Procedural Eval Section A Date of Service: 10/14/22 The patient is an INPATIENT: No Changes since office visit: Yes Patient answered all questions; No Cold of Flu in the past 2 weeks, No New Medical Problems and No Changes in Medication The History & Physical has been completed within 30 days and I have reviewed it.: Yes Section B Chief Complaint: GERD,Diarrhea Allergies: Allergies Allergy/AdvReac Type Severity Reaction Status Date / Time No Known Allergies Allergy Verified 10/10/22 08:30 Plan Diagnosis/Plan: Change (Proceed with EGD and colonoscopy) I have reviewed the history and physical and performed a pertinent physical examination on my patient. No changes have occurred unless specified. Time Spent With Patient Time: Total time managing care of this patient today ____ minutes.
--- NOTE | 2022-10-14 13:22 | PM.OP ---
Brief Operative Note Date of Service: 10/14/22 Pre-op diagnosis: Colon cancer screening, history of colon polyps, iron deficiency anemia, abdominal pain Post-op diagnosis: other (Gastritis, GAVE, Nodule GE junction, diverticulosis) Procedure: FLEXIBLE TRANSORAL UPPER GASTROINTESTINAL ENDOSCOPY WITH BIOPSIES AND APC TREATMENT OF GASTRIC ANTRAL VASCULAR ECTASIA (GAVE) AND COLONOSCOPY TILL CECUM WITH BIOPSIES Surgeon: Terry Freeman MD Anesthesia: MAC Was an Anesthesiologist And Critical Care used for this Procedure?: No Anesthesiologist And Critical Care: Amos Hernandez Estimated blood loss (mL): 2 Pathology: other (A) BX Small Bowel (R/O Celiac Disease) B) BX Gastric Antrum (R/O H.Pylori) C) BX Gastric Antrum (R/O GERD) D) BX Gastric Body E) BX Nodule GE Junction F) BX Left Colon (R/O Mi) Condition: stable Disposition: PACU
--- NOTE | 2022-10-14 13:23 | P.OP_ITS ---
Operative Note Operative Note Date of Service: 10/14/22 Narrative: Pre-op diagnosis: Colon cancer screening, history of colon polyps, iron deficiency anemia, abdominal pain Post-op diagnosis:?other (Gastritis, GAVE, Nodule GE junction, diverticulosis) Surgeon: Terry Freeman MD Anesthesia:?MAC FLEXIBLE TRANSORAL UPPER GASTROINTESTINAL ENDOSCOPY WITH BIOPSIES AND APC TREATMENT OF GASTRIC ANTRAL VASCULAR ECTASIA (GAVE) AND COLONOSCOPY TILL CECUM WITH BIOPSIES UPPER ENDOSCOPY Consent: Indications for the procedure and potential complications of bleeding, perforation, reaction to medications and missed diagnosis were discussed with the patient and informed consent was obtained. Instrument: Olympus GIF H 190 mid size upper endoscope Monitoring: Vital signs and clinical assessment, continuous EKG monitoring, Pulse oximetry, Carbon Dioxide monitoring and blood pressure monitoring were done throughout the procedure. Procedure: The patient was placed in the left lateral decubitis position and pre-procedure medications were administered and a bite block was placed. The endoscope was inserted into the mouth and advanced under direct vision to the third part of duodenum. A careful inspection was made as the upper endoscope was withdrawn including a retroflexed examination of the proximal stomach; Findings and interventions are described below. Findings: Larynx: Normal Esophagus: Mildly tortuous esophagus. GE junction at 38 cms - (biopsies obtained from the proximal esophagus during past EGD were negative for EOE). A 10 mm benign appearing nodule at GE junction - biopsied. No esophagitis or Torres's. Stomach:?Nodular appearing gastric mucosa in the gastric body - biopsied. 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 Mild gastric erythema. Biopsies were obtained. Grade 2 flap valve on retroflexed examination of the cardia. Duodenum:?Normal bulb and descending duodenum. Biopsies obtained from 3rd part of duodenum to check for celiac sprue. Duodenum: Normal bulb and descending duodenum Intervention: Biopsies as noted above COLONOSCOPY PROCEDURE NOTE Consent: Indications for the procedure and potential complications of bleeding, perforation, reaction to medications and missed diagnosis were discussed with the patient and informed consent was obtained. Instrument: Olympus PCF H 190 L variable stiffness pediatric colonoscope Monitoring: Vital signs and clinical assessment, intermittent blood pressure monitoring, continuous EKG monitoring, Pulse oximetry and Carbon Dioxide monitoring were done throughout the procedure. Colon withdrawl time was 17 minutes. Procedure: The patient was placed in the left lateral decubitis position and pre-procedure medications were administered. After a digital rectal examination of the ano-rectum, the video colonoscope was inserted into the rectum and advanced through the colon to the cecum. The colonoscope was slowly withdrawn in a retrograde panoramic fashion and the colon mucosa was carefully examined including a retroflexed view of the rectum. Findings and interventions are described below. Procedure Difficulty: : Without difficulty Findings: Terminal Ileum: Not evaluated Cecum: Normal Ascending Colon: Normal Transverse Colon: Normal Descending Colon: Normal Sigmoid Colon: Moderate diverticulosis Rectum: Normal Ano-rectum: Normal Colon preparation: Good after some irrigation Impression and Post Procedure Diagnosis: Endoscopy Findings: ESOPHAGUS: Mildly tortous esophagus. GE junction at 38 cms - (biopsies obtained from the proximal esophagus during past EGD were negative for EOE). A 10 mm benign appearing nodule at GE junction - biopsied. No esophagitis or Torres's. STOMACH: Nodular appearing gastric mucosa in the gastric body - biopsied. 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 Mild gastric erythema. Biopsies were obtained. DUODENUM: Normal - biopsied to check for celiac sprue Colonoscopy Findings: No polyps were detected. Random biopsies were obtained from the left colon to rule out microscopic colitis Moderate diverticulosis seen in the sigmoid colon Iron deficiency anemia is likely due to GAVE. Plan: Await pathology results Patient has an appointment on 10/31/22 in the GI Clinic with Lynn Camarillo FNP- BC . Repeat EGD with possible repeat APC in 3 months to fu on GAVE - EGD can be repeat earlier if patient has continued anemia on FU EGD. Repeat Colonoscopy in 5 years due to hx of adenomatous colon polyps. Above findings were reviewed with the patient and diverticulosis handouts were given in the discharge area
[2022-10-14 14:22] VITALS: BP 120/62; PULSE 77; RESP 16; TEMP 36.4; O2SAT 99
[2022-10-14 14:37] VITALS: BP 127/65; PULSE 85; RESP 20; O2SAT 98
[2022-10-14 14:52] VITALS: BP 134/55; PULSE 73; RESP 20; TEMP 36.3; O2SAT 99
== END 2022-10-14 15:41 | disposition home or self-care (01) ==
PROVIDERS: PCP Pediatrics; Visit Provider Internal Medicine Gastroenterology
PROC: (CPT 45380; principal; 2022-10-14 13:00)
DX: Z12.11 Encounter for screening for malignant neoplasm of colon (principal); Z86.010 Personal history of colon polyps; K57.30 Diverticulosis of large intestine without perforation or abscess without bleeding; R19.7 Diarrhea, unspecified; D50.9 Iron deficiency anemia, unspecified; K21.00 Gastro-esophageal reflux disease with esophagitis, without bleeding; K29.50 Unspecified chronic gastritis without bleeding; K31.811 Angiodysplasia of stomach and duodenum with bleeding; K22.82 Esophagogastric junction polyp; R60.0 Localized edema; I10 Essential (primary) hypertension; E78.00 Pure hypercholesterolemia, unspecified; E11.9 Type 2 diabetes mellitus without complications; Z79.4 Long term (current) use of insulin; Z79.899 Other long term (current) drug therapy
CPT/HCPCS: 45380; 43239; 43255; 82947; 88305; 88342

== ENCOUNTER 2022-10-18 10:04 | Outpatient (REF) | payer OTHER, SELFPAY | END 2022-10-18 10:05 | disposition home or self-care (01) | LOC: HO.MDS 10:04 | PROVIDERS: Visit Provider Internal Medicine | DX: D50.9 Iron deficiency anemia, unspecified (principal) | CPT/HCPCS: 96365; J1756 ==

== ENCOUNTER 2022-10-25 08:17 | Outpatient (REF) | payer OTHER, SELFPAY | END 2022-10-25 08:18 | disposition home or self-care (01) | LOC: HO.MDS 08:17 | PROVIDERS: Visit Provider Internal Medicine | DX: D50.9 Iron deficiency anemia, unspecified (principal) | CPT/HCPCS: 96365; J1756 ==

== ENCOUNTER 2022-10-30 13:30 | Outpatient (REF) | payer OTHER, SELFPAY ==
--- NOTE | ~2022-10-30 | CT_ITS ---
EXAMINATION: CT ABDOMEN AND PELVIS WITH CONTRAST CLINICAL INFORMATION: Abdominal pain. COMPARISON: Abdominal ultrasound 09/17/2021. TECHNIQUE: Multidetector volumetric images were obtained from the superior aspect of the liver through the pubic symphysis following administration 85 mL of Omnipaque 350 intravenous contrast. Sagittal and coronal reformatted images were obtained on the technologist's workstation. Oral contrast: No This CT examination was performed using dose optimization techniques as appropriate, variously including the following: *Automated exposure control *Adjustment of mA and/or kV according to patient size (this includes techniques or standardized protocols for targeted exams where dose is matched to indication/reason for exam; i.e. extremities or head) *Use of iterative reconstruction technique DLP: 750 mGy-cm FINDINGS: LUNG BASES: No focal consolidation or pleural effusion. LIVER, GALLBLADDER, AND BILIARY TREE: The liver is normal in size, shape, and attenuation. No focal hepatic lesion or biliary ductal dilatation is present. The gallbladder is unremarkable with no evidence of radiopaque gallstones, gallbladder wall thickening, or obvious pericholecystic inflammatory changes. PANCREAS: Unremarkable. SPLEEN: Unremarkable. ADRENAL GLANDS: Unremarkable. KIDNEYS AND URETERS: The kidneys are normal in size, shape, and attenuation. No hydronephrosis, hydroureter, or calculi seen. No perinephric stranding. BLADDER: Unremarkable. GASTROINTESTINAL TRACT: Oral contrast opacifies the entirety of the small bowel and colon up to the level of the transverse colon. No evidence of bowel obstruction. The appendix is not definitely identified, however there are no regional inflammatory changes to suspect acute appendicitis. No significant pericolonic inflammatory changes to suspect acute colitis or diverticulitis. Moderate to large degree of colonic stool burden, suggesting constipation. ABDOMINAL WALL: Tiny fat-containing umbilical hernia. LYMPH NODES: Enlarged but benign-appearing symmetric inguinal lymph nodes, likely reactive. No pathologically enlarged abdominal or pelvic lymph nodes. VASCULAR: Atherosclerotic disease. Abdominal aorta is of normal caliber. PELVIC VISCERA: Slightly hyperattenuating masslike observation in the right uterine fundus measuring approximately 2 cm, statistically favoring to represent a fibroid. Scattered uterine calcifications noted. The endometrial canal is not well delineated and suboptimally assessed. No free fluid. OSSEOUS STRUCTURES: No acute or aggressive appearing osseous abnormalities. Degenerative changes of the spine. CT/CT abdomen pelvis w IV con IMPRESSION: 1. Moderate to large degree of colonic stool burden suggesting constipation. 2. No evidence of bowel obstruction. 3. Masslike observation in the right uterine fundus, statistically favoring to represent a fibroid. The endometrial canal is not well delineated and suboptimally assessed. If indicated, further evaluation with a dedicated pelvic ultrasound could be obtained.
[2022-10-30] MEDS: iohexoL 350 MG/ML 100 ML INFUS..BTL IV (16:40)
[2022-10-30] MEDS: Barium Sulfate Oral (Berry) 450 ML ORAL.SUSP 900 ML PO (16:40)
== END 2022-10-30 13:31 | disposition home or self-care (01) ==
LOC: HO.CT 13:30
PROVIDERS: PCP Pediatrics; Visit Provider Nurse Practitioner Family
DX: R10.9 Unspecified abdominal pain (principal); K85.90 Acute pancreatitis without necrosis or infection, unspecified; D64.9 Anemia, unspecified
CPT/HCPCS: 74177; Q9967

== ENCOUNTER 2022-10-31 08:41 | Outpatient (REF) | payer OTHER, SELFPAY ==
[2022-10-31 10:24] LABS: Hematocrit 33.1 % (37.0-47.0); Hemoglobin 9.6 g/dl (12.0-16.0); Mean Corpuscular Volume 72.4 fL (80.0-98.0); Mean Platelet Volume 10.3 fL (9.4-12.3); Platelet Count 291 X10*3/uL (160-400); Red Blood Count 4.57 X10*6/uL (4.20-5.50); Red Cell Distribution Width 23.8 % (11.0-16.0); White Blood Count 6.9 X10*3/uL (4.8-10.8)
[2022-10-31 11:09] LABS: Blood Urea Nitrogen 13 mg/dL (9-16); Estimated Glomerular Filt Rate 52; Lipase 59 U/L (8-78)
== END 2022-10-31 08:42 | disposition home or self-care (01) ==
LOC: HO.LAB 08:41
PROVIDERS: PCP Pediatrics; Visit Provider Nurse Practitioner Family
DX: K21.00 Gastro-esophageal reflux disease with esophagitis, without bleeding (principal); K58.1 Irritable bowel syndrome with constipation; K59.04 Chronic idiopathic constipation; K31.819 Angiodysplasia of stomach and duodenum without bleeding; K85.00 Idiopathic acute pancreatitis without necrosis or infection; R10.11 Right upper quadrant pain
CPT/HCPCS: 36415; 82565; 83690; 84520; 85027; 99212

== ENCOUNTER 2022-11-01 09:00 | Outpatient (REF) | payer OTHER, SELFPAY | END 2022-11-01 09:01 | disposition home or self-care (01) | LOC: HO.MDS 09:00 | PROVIDERS: Visit Provider Internal Medicine | DX: D50.9 Iron deficiency anemia, unspecified (principal) | CPT/HCPCS: 96365; J1756 ==

== ENCOUNTER → 2022-11-06 10:03 | Outpatient (BNVA) | payer OTHER, SELFPAY | PROVIDERS: PCP Pediatrics; Visit Provider Internal Medicine Rheumatology | DX: I73.00 Raynaud's syndrome without gangrene (principal); D50.9 Iron deficiency anemia, unspecified; K31.819 Angiodysplasia of stomach and duodenum without bleeding; M25.511 Pain in right shoulder; M34.1 CR(E)ST syndrome | CPT/HCPCS: 99212 ==

== ENCOUNTER 2022-11-08 08:09 | Outpatient (REF) | payer OTHER, SELFPAY | END 2022-11-08 08:10 | disposition home or self-care (01) | LOC: HO.MDS 08:09 | PROVIDERS: Visit Provider Internal Medicine | DX: D50.9 Iron deficiency anemia, unspecified (principal) | CPT/HCPCS: 96365; J1756 ==

== ENCOUNTER 2022-11-08 09:12 | Outpatient (REF) | payer OTHER, SELFPAY ==
--- NOTE | ~2022-11-08 | XR_ITS ---
EXAMINATION: XR SHOULDER, RIGHT CLINICAL INFORMATION: Reason for Exam M25.511 - Pain in right shoulder COMPARISON: Humerus radiographs 01/04/2017 TECHNIQUE: Four views of the shoulder. FINDINGS: No acute fracture or dislocation. Mild degenerative changes of the acromioclavicular joint with degenerative spurring. 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 5 mm sclerotic density in the right humeral head may reflect a bone island, stable from 2016. Soft tissues are unremarkable. XR/XR shoulder RT min 2V IMPRESSION: 1. Mild degenerative changes of the acromioclavicular joint. 2. 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 3. 5 mm sclerotic density in the right humeral head may reflect a bone island, stable from 2017.
== END 2022-11-08 09:13 | disposition home or self-care (01) ==
LOC: HO.XRAY 09:12
PROVIDERS: PCP Pediatrics; Visit Provider Internal Medicine Rheumatology
DX: M25.511 Pain in right shoulder (principal)
CPT/HCPCS: 73030

== ENCOUNTER 2022-11-15 08:07 | Outpatient (REF) | payer OTHER, SELFPAY | END 2022-11-15 08:08 | disposition home or self-care (01) | LOC: HO.MDS 08:07 | PROVIDERS: Visit Provider Internal Medicine | DX: D50.9 Iron deficiency anemia, unspecified (principal) | CPT/HCPCS: 96365; J1756 ==

== ENCOUNTER 2022-12-02 08:07 | Outpatient (REF) | payer OTHER, SELFPAY ==
[2022-12-02 09:31] LABS: Hematocrit 37.7 % (37.0-47.0); Hemoglobin 11.3 g/dl (12.0-16.0); Mean Corpuscular Hemoglobin 22.4 pg (27.0-33.0); Mean Corpuscular Volume 74.8 fL (80.0-98.0); Mean Platelet Volume 10.2 fL (9.4-12.3); Platelet Count 284 X10*3/uL (160-400); Red Blood Count 5.04 X10*6/uL (4.20-5.50); Red Cell Distribution Width 22.4 % (11.0-16.0); White Blood Count 8.2 X10*3/uL (4.8-10.8)
[2022-12-02 09:46] LABS: Lipase 51 U/L (8-78)
== END 2022-12-02 08:08 | disposition home or self-care (01) ==
LOC: HO.LAB 08:07
PROVIDERS: PCP Pediatrics; Visit Provider Nurse Practitioner Family
DX: R10.9 Unspecified abdominal pain (principal); K31.819 Angiodysplasia of stomach and duodenum without bleeding; K21.00 Gastro-esophageal reflux disease with esophagitis, without bleeding; K58.9 Irritable bowel syndrome, unspecified; K59.01 Slow transit constipation
CPT/HCPCS: 36415; 83690; 85027; 99212

== ENCOUNTER 2023-01-27 12:51 | Outpatient (REF) | payer OTHER, SELFPAY | END 2023-01-27 12:52 | disposition home or self-care (01) | LOC: HO.MDS 12:51 | PROVIDERS: PCP Pediatrics; Visit Provider Internal Medicine | DX: D50.9 Iron deficiency anemia, unspecified (principal) | CPT/HCPCS: 96374; J1756 ==

== ENCOUNTER → 2023-02-06 08:47 | Outpatient (BNVA) | payer OTHER, SELFPAY | PROVIDERS: PCP Pediatrics; Visit Provider Internal Medicine Rheumatology | DX: I73.00 Raynaud's syndrome without gangrene (principal); M75.81 Other shoulder lesions, right shoulder; M34.1 CR(E)ST syndrome; R05.9 Cough, unspecified; K31.819 Angiodysplasia of stomach and duodenum without bleeding; D50.9 Iron deficiency anemia, unspecified | CPT/HCPCS: 99212 ==

== ENCOUNTER 2023-02-06 09:30 | Outpatient (REF) | payer OTHER, SELFPAY | END 2023-02-06 09:31 | disposition home or self-care (01) | LOC: HO.10HDL 09:30 | PROVIDERS: Visit Provider Internal Medicine Rheumatology | DX: I73.00 Raynaud's syndrome without gangrene (principal); K31.819 Angiodysplasia of stomach and duodenum without bleeding; D50.9 Iron deficiency anemia, unspecified; M75.81 Other shoulder lesions, right shoulder; R05.9 Cough, unspecified; M34.1 CR(E)ST syndrome | CPT/HCPCS: 36415; 83540; 85025; 85652; 86140 ==

== ENCOUNTER 2023-02-11 08:32 | Outpatient (REF) | payer OTHER, SELFPAY ==
--- NOTE | 2023-02-11 12:18 | PFT_ITS ---
INDICATION: syndrome. SPIROMETRY: The FEV1 to FVC 80% with an FEV1 of 1.98 L which is 81% predicted and FVC of 2.47 L which is 77% predicted. No significant response to bronchodilators noted. Maximum voluntary ventilation 45% predicted. LUNG VOLUMES: Total lung capacity 85% predicted with an expiratory residual volume of 50% predicted. DIFFUSION CAPACITY: DLCO of 72% predicted. COMPARISONS: Not available. INTERPRETATION: No obstructive nor restrictive ventilatory defect identified. No significant response to bronchodilators noted. The patient, however, has marked severe decrease in maximal voluntary ventilation which could be secondary to deconditioning although cannot rule out neuromuscular conditions. Lung volumes are normal and the patient does have a mild diffusion impairment. Clinical correlation warranted. Eric Soto MD MR/MODL / [id number]
== END 2023-02-11 08:33 | disposition home or self-care (01) ==
LOC: HO.RESP 08:32
PROVIDERS: PCP Pediatrics; Visit Provider Internal Medicine Rheumatology
DX: M34.1 CR(E)ST syndrome (principal); R05.9 Cough, unspecified
CPT/HCPCS: 94010; 94727; 94729

== ENCOUNTER → 2023-02-11 12:18 | Outpatient (BNV) | payer OTHER, SELFPAY | PROVIDERS: PCP Pediatrics; Visit Provider Hospitalist | DX: M34.1 CR(E)ST syndrome (principal) | CPT/HCPCS: 94060; 94727; 94729 ==

== ENCOUNTER 2023-03-04 15:10 | Outpatient (AMB) | payer OTHER, SELFPAY ==
--- NOTE | 2023-03-04 15:14 | MHC.OFFVIS ---
Intake Vital Signs 03/04/23 15:16 Height 5 ft 4 in Weight 158 lb BMI 27.1 Intake Visit Reasons: MOTION PICTURE SET GRIP-Right shoulder lesions Intake Note: right hand dominant No hx of injections. ongoing pain for 6-7 month Pt for 6 weeks and its going well Allergies No Known Allergies Allergy (Verified 03/04/23 15:16) HPI MOTION PICTURE SET GRIP-Right shoulder lesions HPI Details 62-year-old right hand dominant female who presents in the office today, as a new patient, for an evaluation of right shoulder lesions. The patient reports ongoing pain for 6-7 months. He confirms participating in physical therapy for 6 weeks and states it was going well. Patient has no history of cortisone injections. PENDING SALE TO [facility] Medical History Bilateral lower extremity edema Diabetes mellitus Dysphagia Elevated cholesterol GAVE (gastric antral vascular ectasia) Helicobacter pylori infection HTN (hypertension) Surgical History History of cataract extraction Hx of colonoscopy Hx of esophagogastroduodenoscopy Family History Mother HTN (hypertension) Cancer Father Paralysis Social History Household Members: Spouse and Family Housing: House Alcohol intake: current Alcohol intake frequency: does not drink Patient Tobacco Use Status: Never used Tobacco Current occupational status: unemployed Review of Systems Const All systems reviewed & are unremarkable except as noted in HPI and below Physical Exam Vital Signs: BMI result Body Mass Index 27.1 Const General: cooperative and no acute distress Orientation/consciousness: patient oriented x3 Resp Effort & Inspection: normal respiratory effort and able to speak in complete sentences Cardio Peripheral pulses: Peripheral pulses 2+ throughout Skin General skin exam: no rashes or lesions noted Neuro General: patient oriented x3 Extrem Other: Right shoulder: Normal to inspection. No ecchymosis, erythema, or edema. Full shoulder ROM in all planes. Negative cross-body reach. Negative empty can. Negative drop arm. Pain is located in her trap and along the spine of the scapula. Assessment & Plan Assessment & Plan (1) Myofascial pain on right side: Code(s): M79.18 - Myalgia, other site Plan Ms. Everardo is a 62-year-old right hand dominant female who presents in the office today, as a new patient, for an evaluation of right shoulder lesions. The patient reports ongoing pain for 6-7 months. He confirms participating in physical therapy for 6 weeks and states it was going well. Patient has no history of cortisone injections. The patient has already completed physical therapy, which she states helped some. She still complains of pain especially at night time. She confirms numbness and tingling in bilateral upper extremity. She was recently diagnosed with Raynaud?s. She is not experiencing any rotator cuff pathology on exam or history. Therefore, the recommendation is to follow up with Physiatry. Follow up with Orthopedics will be PRN, or sooner if needed. Medications: Discontinued docusate sodium 100 mg PO BEDTIME 90 caps 3RF K59.00 - Constipation, unspecified Patient Instructions: Scribed for Peggy Mcnair PA-C by Salma Puente, product manager medical device, on 03/04/2023 at 3:15 pm, EST. Your attestation Coding Level of Care Code New Pt Level 3 (76257) Diagnoses Myofascial pain on right side M79.18
[2023-03-04 15:16] VITALS: BMI 27.1
== END 2023-03-04 15:30 | disposition home or self-care (01) ==
PROVIDERS: PCP Pediatrics; Visit Provider Physician Assistant
DX: M79.18 Myalgia, other site (principal)
CPT/HCPCS: 99203

== ENCOUNTER → 2023-03-04 15:10 | Outpatient (BNVA) | payer OTHER, SELFPAY | PROVIDERS: PCP Pediatrics; Visit Provider Physician Assistant | DX: M79.18 Myalgia, other site (principal) | CPT/HCPCS: 99202 ==

== ENCOUNTER 2023-03-17 08:19 | Outpatient (REF) | payer OTHER, SELFPAY ==
[2023-03-17 10:29] LABS: Hematocrit 33.9 % (37.0-47.0); Hemoglobin 10.3 g/dl (12.0-16.0); Mean Corpuscular HGB Conc 30.4 g/dl (31.0-35.0); Mean Corpuscular Hemoglobin 25.5 pg (27.0-33.0); Mean Corpuscular Volume 83.9 fL (80.0-98.0); Platelet Count 325 X10*3/uL (160-400); Red Blood Count 4.04 X10*6/uL (4.20-5.50); White Blood Count 7.7 X10*3/uL (4.8-10.8)
== END 2023-03-17 08:20 | disposition home or self-care (01) ==
LOC: HO.LAB 08:19
PROVIDERS: PCP Pediatrics; Visit Provider Nurse Practitioner Family
DX: K21.00 Gastro-esophageal reflux disease with esophagitis, without bleeding (principal); K58.9 Irritable bowel syndrome, unspecified; K31.819 Angiodysplasia of stomach and duodenum without bleeding
CPT/HCPCS: 36415; 85027; 99212

== ENCOUNTER 2023-03-17 08:19 | Outpatient (AMB) | payer OTHER, SELFPAY ==
[2023-03-17 08:34] VITALS: BP 165/76; PULSE 87; BMI 27.2
--- NOTE | 2023-03-17 08:34 | A.OFFVIS_ITS ---
Intake Vital Signs 03/17/23 08:34 Height 5 ft 4 in Weight 158 lb 11.725 oz BMI 27.2 BP 165/76 H Blood Pressure Location Lt brachial Position Sitting Pulse 87 Intake Visit Reasons: 3 mnth follow up Intake Note: Brandon presents in office as a est.patient for a 3month f/u for Constipation PT CC: pt reports having no concerns pt denies any other GI Issues Estate Attorney Required: No Accompanied by: Family/Other Allergies No Known Allergies Allergy (Verified 03/17/23 08:34) HPI 3 mnth follow up HPI Details LAST VISIT: (1) GAVE (gastric antral vascular ectasia): ?Comment: seen on endoscopy 10/2022 ?Code(s): K31.819 - Angiodysplasia of stomach and duodenum without bleeding ?Plan: Will repeat upper endoscopy in the near future (2) GERD with esophagitis: ?Code(s): K21.00 - Gastro-esophageal reflux disease with esophagitis, without bleeding ?Qualifiers: ?Esophagitis bleeding:?without hemorrhage? Qualified Code(s):?K21.00 - Gastro-esophageal reflux disease with esophagitis, without bleeding ?Plan: Continue omeprazole in the morning half an hour before breakfast and famotidine at bedtime.? Discussed with patient avoiding dietary triggers and late night snacking.? Staying upright for minimal 3 hours after meals discussed with patient (3) IBS (irritable bowel syndrome): ?Code(s): K58.9 - Irritable bowel syndrome without diarrhea ?Qualifiers: ?Irritable bowel syndrome type:?without diarrhea? Qualified Code(s):? K58.9 - Irritable bowel syndrome without diarrhea ?Plan: Reports occasional postprandial cramping and bloating.? Patient will try elimination diet as best as she can. (4) Constipation: ?Code(s): K59.00 - Constipation, unspecified ?Qualifiers: ?Constipation type:?slow transit constipation? Qualified Code(s):?K59.01 - Slow transit constipation ?Plan: Continue.? Patient was encouraged to increase fluid intake and activity to promote better bowel motility.? I will see her in 3 months, sooner on as needed basis.? Patient is agreeable to this plan and verbalizes understanding of instructions.? She was given the opportunity to ask questions and questions answered. TODAY'S VISIT Patient is here today for follow-up. Patient has not had upper endoscopy yet to evaluate for gastric antral vascular ectasia. Patient continues be anemic. Had iron infusions, however now she is on p.o. twice a day, taking it with food, recommended to take it on empty stomach for better absorption. Patient continues to take famotidine at bedtime and omeprazole in the morning. Patient no longer is taking Linzess, reports to be moving her bowels without any issues. Patient does report black stools, denies hematochezia, unintentional weight loss or ribbon like stools. Patient denies any dyspepsia, dysphagia or odynophagia. Denies any other GI concerning symptoms. Reports to have good appetite last few lb since last visit not intentionally PFSH Medical History Bilateral lower extremity edema Diabetes mellitus Dysphagia Elevated cholesterol GAVE (gastric antral vascular ectasia) Helicobacter pylori infection HTN (hypertension) Surgical History History of cataract extraction Hx of colonoscopy Hx of esophagogastroduodenoscopy Family History Mother HTN (hypertension) Cancer Father Paralysis Social History Household Members: Spouse and Family Housing: House Alcohol intake: current Alcohol intake frequency: does not drink Patient Tobacco Use Status: Never used Tobacco Current occupational status: unemployed Review of Systems Const Denies weight gain and Denies weight loss ENT Reports no additional complaints, Denies dysphagia and Denies odynophagia Card Reports no additional complaints Resp Reports no additional complaints GI Denies abdominal pain, Denies belching, Denies melena, Denies bloating, Denies change in bowel habits, Denies dysphagia, Denies excessive flatus, Denies dyspepsia, Denies heartburn, Denies diarrhea, Denies loose stools, Denies nausea, Denies odynophagia and Denies vomiting Musc Reports no additional complaints Neuro Reports no additional complaints Psych Reports no additional complaints Endo Reports no additional complaints Physical Exam Vital Signs: Last Vital Signs Pulse 87 03/17/23 08:34 BP 165/76 H 03/17/23 08:34 BMI result Body Mass Index 27.2 Const General: healthy appearing, no acute distress and well developed Nutritional Appearance: well nourished Orientation/consciousness: patient oriented x3 HEENT Head: Yes normal to inspection, Yes normocephalic and Yes atraumatic Face and sinus: Yes normal facial exam Mouth: Normal oral and palatal mucosa present Throat: Yes posterior oropharynx normal, Yes tonsils normal and Yes uvula midline Eyes General: appearance normal, both eyes and all related structures Neck Neck: Yes normal visual inspection, Yes full ROM and Yes trachea midline Thyroid: Thyroid normal Resp Effort & Inspection: normal respiratory effort, able to speak in complete s entences, no tracheal deviation and symmetric chest movement Auscultation: clear to auscultation bilaterally Cardio Rate: regular rate Heart sounds: S1 normal heart sound present and S2 normal heart sound present GI Inspection: Yes normal to inspection and No distended Palpation (GI): Soft to palpation, not firm, nontender and No hepatosplenomegaly present Auscultation: normal bowel sounds General: Yes no CVA tenderness Back/Spine/Pelvis Back: no CVA tenderness Skin General skin exam: elasticity normal, turgor normal and dry skin Neuro General: patient oriented x3 Psych Appearance: grossly normal Mental Status: mental status grossly normal Speech and movement: Normal speech and movement present Assessment & Plan Assessment & Plan (1) GAVE (gastric antral vascular ectasia): Comment: seen on endoscopy 10/2022 Code(s): K31.819 - Angiodysplasia of stomach and duodenum without bleeding Plan: Will schedule repeat endoscopy. Will repeat CBC today. (2) GERD with esophagitis: Code(s): K21.00 - Gastro-esophageal reflux disease with esophagitis, without bleeding Qualifiers: Esophagitis bleeding: without hemorrhage Qualified Code(s): K21.00 - Gastro-esophageal reflux disease with esophagitis, without bleeding Plan: Continue omeprazole no morning and famotidine at bedtime. Patient will be sent for upper endoscopy (3) IBS (irritable bowel syndrome): Code(s): K58.9 - Irritable bowel syndrome without diarrhea Qualifiers: Irritable bowel syndrome type: without diarrhea Qualified Code(s): K58.9 - Irritable bowel syndrome without diarrhea Plan: Continue avoiding dietary triggers. Patient currently is moving her bowels better. Occasional cramping in her abdomen if she has to go to the bathroom and feels better after bowel movement. Patient was encouraged however if she is going to have trouble moving her bowels to go back and start her Linzess. I will see patient after upper endoscopy, sooner on as needed basis. Patient is agreeable to this plan and verbalizes understanding of instructions. She was given the opportunity to ask questions and all questions answered. Thank you for allowing me to participate in her care Orders: Orders Complete Blood Count no Diff Today K21.9 - Gastro-esophageal reflux disease without esophagitis Medications: Refilled omeprazole 20 mg PO DAILY 60 days 90 caps 1RF K21.00 - Gastro-esophageal reflux disease with esophagitis, without bleeding Discontinued 2 docusate sodium 100 mg PO BEDTIME 90 caps 3RF K59.00 - Constipation, unspecified Coding Level of Care Code Est Pt Level 3 (11393) Diagnoses GAVE (gastric antral vascular ectasia) K31.819 GERD with esophagitis K21.00 Esophagitis bleeding: without hemorrhage IBS (irritable bowel syndrome) K58.9 Irritable bowel syndrome type: without diarrhea Time Spent (min) 30 Comment 20 minutes spent with patient and additional 10 minutes spent reviewing her records
== END 2023-03-17 09:03 | disposition home or self-care (01) ==
PROVIDERS: PCP Pediatrics; Visit Provider Nurse Practitioner Family
DX: K31.819 Angiodysplasia of stomach and duodenum without bleeding (principal); K21.00 Gastro-esophageal reflux disease with esophagitis, without bleeding; K58.9 Irritable bowel syndrome, unspecified
CPT/HCPCS: 99213

== ENCOUNTER 2023-03-20 12:02 | Outpatient (AMB) | payer MEDICAID, SELFPAY ==
[2023-03-20 12:08] VITALS: BMI 27.1
--- NOTE | 2023-03-20 12:08 | MHC.OFFVIS ---
Intake Vital Signs 03/20/23 12:08 Height 5 ft 4 in Weight 158 lb BMI 27.1 Intake Visit Reasons: ov-Right shoulder lesions Intake Note: Brandon 62-year-old right hand dominant female, presents today for her follow up visit further evaluation of right shoulder lesions, numbness and tingling in hand. Patient states ongoing pain in right shoulder for 6-7 months. She completed physical therapy for 6 weeks and states it was going well but cont's to have on and off pain. No EMG done. Accompanied by: Daughter Allergies No Known Allergies Allergy (Verified 03/20/23 12:14) Medication List - Last Reconciled 03/20/23 by Radhika Colon MD alcohol swabs (Alcohol Prep Pads) 1 pad topical DAILY PRN amlodipine 10 mg PO QAM cholecalciferol (vitamin D3) 50 mcg PO QAM docusate sodium (Colace) 100 mg PO BEDTIME dulaglutide (Trulicity) 0.05 mg subcut QWEEK ergocalciferol (vitamin D2) 1,250 mcg PO QWEEK famotidine (Pepcid) 20 mg PO BEDTIME ferrous sulfate (FeroSul) 325 mg PO DAILY insulin glargine (Lantus Solostar U-100 Insulin) 42 units subcut BEDTIME lancets (TRUEplus Lancets) As directed linaclotide (Linzess) 72 mcg PO DAILY lisinopril 40 mg PO QAM metformin 1,000 mg PO BID xegkpybw-nwq-PO-lycopen-lutein 0.4 mg-300 mcg- 250 mcg (Cerovite Senior) 1 tab PO DAILY ymiiqvvvjaes-jvgn-owzzh acid 18-400 mg-mcg (Certavite-Antioxidant) 1 tab PO QAM mupirocin 2% 1 appl topical TID nifedipine ER 60 mg PO DAILY nitroglycerin 2% 0.5 inches transdermal DAILY omeprazole 20 mg PO DAILY 60 days simvastatin 10 mg PO BEDTIME HPI HPI Comments History of Present Illness Details Right shoulder pain since August. Denies injury or fall. She follows rheumatology Dr. Alfredo for CREST. Recent flare up but improved. Seen by ortho for shoulder. Had PT for 6 weeks, improved. ROM now improved. Posterior pain especially at night. Bilateral hand numbness when she wakes up, chronic, on and off. Affects all fingers. Good practice physician. Not dropping things. Points to upper back pain as source of pain but denies neck pain, on and off. Treatment done so far: therapy No brace. Not on NSAIDs. Diabetic, admits to numbness on feet occasionally. HbA1c 8.5 last October. [facility] Medical History (Updated 03/20/23 @ 12:36 by Radhika Colon MD) AC joint arthropathy Bilateral lower extremity edema Diabetes mellitus Dysphagia Elevated cholesterol GAVE (gastric antral vascular ectasia) Helicobacter pylori infection HTN (hypertension) Surgical History History of cataract extraction Hx of colonoscopy Hx of esophagogastroduodenoscopy Family History Mother HTN (hypertension) Cancer Father Paralysis Social History Household Members: Spouse and Family Housing: House Alcohol intake: current Alcohol intake frequency: does not drink Patient Tobacco Use Status: Never used Tobacco Current occupational status: unemployed Review of Systems Const All systems reviewed & are unremarkable except as noted in HPI and below Physical Exam Vital Signs: BMI result Body Mass Index 27.1 Constitutional: Patient appears to be in no acute distress, well nourished and well developed. MSK: Inspection reveals appropriate head and neck positioning. No pain with palpation over the neck musculature. Mild tenderness over right rhomboids. Mild tenderness over AC joint. Cervical ROM was full. Spurling's sign negative. Bilateral shoulder ROM WNL. No ligamentous laxity or crepitance. No increased effusion. Empty can test is negative. Drop arm test is negative. Speed's test is negative. Neer's test is negative. Hawkin's test is positive mildly right. Negative carpal compression. Negative Tinel sign. No intrinsic hand weakness. No atrophy Strength is 5/5 in all muscle groups tested. No increased tone noted. Neurological: Neurologic examination of the upper and lower extremities was nonfocal with intact sensation, muscle stretch reflexes and without focal motor deficits . Irving?s negative bilaterally. Results Reviewed Results Reviewed: I independently reviewed the results of the following: Right humeral head with small bony island. No fracture seen right hand x-ray XR/XR shoulder RT min 2V IMPRESSION: 1. Mild degenerative changes of the acromioclavicular joint. 2. 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 3. 5 mm sclerotic density in the right humeral head may reflect a bone island, stable from 2017. XR/XR hand RT min 3V IMPRESSION: Mild degenerative changes PIP and DIP joints both hands. No visible acute fracture, dislocation or subluxation seen.? I reviewed records from the following: Per Dr. Alfredo's last note: digital ulcers from her Raynaud's phenomenon. Assessment & Plan Assessment & Plan (1) AC joint arthropathy: Code(s): M19.019 - Primary osteoarthritis, unspecified shoulder Plan: Chronic right shoulder pain although improved range of motion from physical therapy. X-ray showed mild AC joint arthritis. No signs of rotator cuff issues on exam. Offered trial of steroid injection but patient defers. She says she will call if pain is severe. Also advised that steroid injection can increase blood sugar temporarily. Continue exercises learned from PT (2) Myofascial pain on right side: Code(s): M79.18 - Myalgia, other site Plan: There is also some tenderness over the right rhomboids and trapezius. Offered trial of trigger point injections but again patient defers. She will call if pain is severe. Advised to get an exercise ball such as a small Cork or rubber ball that can help massage and exercise that area. (3) Carpal tunnel syndrome on both sides: Code(s): G56.03 - Carpal tunnel syndrome, bilateral upper limbs Plan: Complaining of bilateral hand numbness. To wear wrist splints at night. Will schedule for EMG to rule out Carpal Tunnel Syndrome. Plan Assessment and plan discussed with patent, and patient was agreeable. All questions were answered thoroughly. Follow-up after EMG to Orders: Orders NE nerve conduction velocity Today G56.03 - Carpal tunnel syndrome, bilateral upper limbs Medications: Discontinued docusate sodium 100 mg PO BEDTIME 90 caps 3RF K59.00 - Constipation, unspecified Coding Level of Care Code New Pt Level 4 (02196) Diagnoses AC joint arthropathy M19.019 Myofascial pain on right side M79.18 Carpal tunnel syndrome on both sides G56.03
== END 2023-03-20 16:29 | disposition home or self-care (01) ==
PROVIDERS: PCP Pediatrics; Visit Provider Physical Medicine & Rehabilitation
DX: M19.019 Primary osteoarthritis, unspecified shoulder (principal); M79.18 Myalgia, other site; G56.03 Carpal tunnel syndrome, bilateral upper limbs
CPT/HCPCS: 99204

== ENCOUNTER → 2023-03-20 12:02 | Outpatient (BNVA) | payer OTHER, SELFPAY | PROVIDERS: PCP Pediatrics; Visit Provider Physical Medicine & Rehabilitation | DX: M19.019 Primary osteoarthritis, unspecified shoulder (principal); M79.18 Myalgia, other site; G56.03 Carpal tunnel syndrome, bilateral upper limbs | CPT/HCPCS: 99202 ==

== ENCOUNTER 2023-03-21 13:38 | Day surgery (SDC) | payer OTHER, SELFPAY ==
--- NOTE | 2023-03-20 10:57 | HO.ANESPROP2 ---
Documented by User: Noelle Benz NP 03/20/23 11:00 HPI - Anesthesia Eval Consult details Narrative: 62yo F for Upper Endoscopy s/p EGD and Kunia 10/2022 with MAC Severe ALANA with iron infusions. [facility] Active Problems Active Problems: All Active Problems (Updated 03/04/23 @ 15:32 by Salma Puente) Myofascial pain on right side (Acute) Right rotator cuff tendinitis (Acute) Shoulder pain, right (Acute) GAVE (gastric antral vascular ectasia) (Acute) CREST syndrome (Acute) Iron deficiency anemia (Chronic) Positive DAVI (antinuclear antibody) (Acute) Cough (Acute) Raynauds phenomenon (Acute) Heart murmur, systolic (Acute) Chronic hand pain (Acute) HTN (hypertension) (Acute) Elevated cholesterol (Acute) Diabetes mellitus (Acute) Bilateral lower extremity edema (Acute) Helicobacter pylori infection (Acute) GERD with esophagitis (Acute) Past Medical History Medical History AC joint arthropathy Bilateral lower extremity edema Diabetes mellitus Dysphagia Elevated cholesterol GAVE (gastric antral vascular ectasia) Helicobacter pylori infection HTN (hypertension) Family History Family History Mother HTN (hypertension) Cancer Father Paralysis Family history of problems with anesthesia: No Surgical History Surgical History History of cataract extraction Hx of colonoscopy Hx of esophagogastroduodenoscopy History of Problems with Anesthesia: No Social History Social History Household Members: Spouse and Family Housing: House Alcohol intake: current Alcohol intake frequency: does not drink Patient Tobacco Use Status: Never used Tobacco Advance Directives: No Advance Directives Information Provided: Yes Current occupational status: unemployed Meds Allergies Allergy/AdvReac Type Severity Reaction Status Date / Time No Known Allergies Allergy Verified 03/20/23 12:14 Home Medications Medication Instructions Recorded Confirmed Last Taken Type alcohol swabs (Alcohol Prep Pads) 1 pad topical DAILY PRN Outbreak 10/11/21 03/20/23 Unknown History cholecalciferol (vitamin D3) 50 50 mcg PO QAM 10/11/21 03/20/23 Unknown History mcg (2,000 unit) capsule dulaglutide 1.5 mg/0.5 mL 0.05 mg subcut QWEEK 10/11/21 03/20/23 Unknown History subcutaneous pen injector (Trulicity) ergocalciferol (vitamin D2) 1,250 1,250 mcg PO QWEEK 10/11/21 03/20/23 Unknown History mcg (50,000 unit) capsule insulin glargine 100 unit/mL (3 42 unit subcut BEDTIME 10/11/21 03/20/23 Unknown History mL) subcutaneous pen (Lantus Solostar U-100 Insulin) lancets 33 gauge (TRUEplus Lancets) #100 ea 10/11/21 03/20/23 Unknown History lisinopril 40 mg tablet 40 mg PO QAM 10/11/21 03/20/23 Unknown History metformin 1,000 mg tablet 1,000 mg PO BID 10/11/21 03/20/23 Unknown History multivitamin-ferrous 1 tab PO QAM 10/11/21 03/20/23 Unknown History fumarate-folic acid 18 mg-400 mcg tablet (Certavite-Antioxidant) ztxjpssl-ivu-ptdba acid 0.4 1 tab PO DAILY 09/17/22 03/20/23 Unknown History mg-lycopene 300 mcg-lutein 250 mcg tablet (Cerovite Senior) mupirocin 2 % topical ointment 1 appl topical TID 09/17/22 03/20/23 Unknown History ferrous sulfate 325 mg (65 mg 325 mg PO DAILY 10/02/22 03/20/23 Unknown History iron) tablet (FeroSul) nifedipine 60 mg tablet,extended 60 mg PO DAILY 10/02/22 03/20/23 Unknown History release docusate sodium 100 mg capsule 100 mg PO BEDTIME 11/11/22 03/20/23 Unknown History (Colace) amlodipine 10 mg tablet 10 mg PO QAM 02/06/23 03/20/23 Unknown History simvastatin 10 mg tablet 10 mg PO BEDTIME 02/06/23 03/20/23 Unknown History Exam Exam Date and Time: March 20, 2023 1057 Pertinent Lab Results Pertinent Lab Results: Laboratory Tests 01/13/23 03/17/23 08:55 09:24 WBC 7.7 Hgb 10.3 L Hct 33.9 L Plt Count 325 Sodium 138 Potassium 4.4 Chloride 108 Carbon Dioxide 22 BUN 13 Creatinine 0.97 Narrative Narrative: ECHO 10/2022 Conclusions: - The left ventricular systolic function is normal.? The ? calculated ejection fraction is 67% by biplane method. ? - There is mild septal asymmetric hypertrophy. ? - There is mild calcification of the aortic valve. ? - No obvious valvular pathology seen on this study.? Assessment and Plan Assessment Anesthesia Assessment: Chart Reviewed Final Anesthetic Review Family History of Problems with Anesthesia: No History of Problems with Anesthesia: No Documented by User: Tricia Rebollar MD 03/21/23 15:00 [facility] Past Medical History Medical History AC joint arthropathy Bilateral lower extremity edema Diabetes mellitus Dysphagia Elevated cholesterol GAVE (gastric antral vascular ectasia) Helicobacter pylori infection HTN (hypertension) Family History Family History Mother HTN (hypertension) Cancer Father Paralysis Surgical History Surgical History History of cataract extraction Hx of colonoscopy Hx of esophagogastroduodenoscopy Social History Social History Household Members: Spouse and Family Housing: House Alcohol intake: current Alcohol intake frequency: does not drink Patient Tobacco Use Status: Never used Tobacco Advance Directives: No Advance Directives Information Provided: Yes Current occupational status: unemployed Meds Allergies Allergy/AdvReac Type Severity Reaction Status Date / Time No Known Allergies Allergy Verified 03/20/23 12:14 Home Medications Medication Instructions Recorded Confirmed Last Taken Type alcohol swabs (Alcohol Prep Pads) 1 pad topical DAILY PRN Outbreak 10/11/21 03/20/23 Unknown History cholecalciferol (vitamin D3) 50 50 mcg PO QAM 10/11/21 03/20/23 Unknown History mcg (2,000 unit) capsule dulaglutide 1.5 mg/0.5 mL 0.05 mg subcut QWEEK 10/11/21 03/20/23 Unknown History subcutaneous pen injector (Trulicity) ergocalciferol (vitamin D2) 1,250 1,250 mcg PO QWEEK 10/11/21 03/20/23 Unknown History mcg (50,000 unit) capsule insulin glargine 100 unit/mL (3 42 unit subcut BEDTIME 10/11/21 03/20/23 Unknown History mL) subcutaneous pen (Lantus Solostar U-100 Insulin) lancets 33 gauge (TRUEplus Lancets) #100 ea 10/11/21 03/20/23 Unknown History lisinopril 40 mg tablet 40 mg PO QAM 10/11/21 03/20/23 Unknown History metformin 1,000 mg tablet 1,000 mg PO BID 10/11/21 03/20/23 Unknown History multivitamin-ferrous 1 tab PO QAM 10/11/21 03/20/23 Unknown History fumarate-folic acid 18 mg-400 mcg tablet (Certavite-Antioxidant) ydngirsj-dzr-ywcle acid 0.4 1 tab PO DAILY 09/17/22 03/20/23 Unknown History mg-lycopene 300 mcg-lutein 250 mcg tablet (Cerovite Senior) mupirocin 2 % topical ointment 1 appl topical TID 09/17/22 03/20/23 Unknown History ferrous sulfate 325 mg (65 mg 325 mg PO DAILY 10/02/22 03/20/23 Unknown History iron) tablet (FeroSul) nifedipine 60 mg tablet,extended 60 mg PO DAILY 10/02/22 03/20/23 Unknown History release docusate sodium 100 mg capsule 100 mg PO BEDTIME 11/11/22 03/20/23 Unknown History (Colace) amlodipine 10 mg tablet 10 mg PO QAM 02/06/23 03/20/23 Unknown History simvastatin 10 mg tablet 10 mg PO BEDTIME 02/06/23 03/20/23 Unknown History Exam Airway Mallampati Class: II TM Dist: >3cm Neck ROM: Full Heart: rrr Lungs: cta Assessment and Plan Assessment Anesthesia Assessment: Anesthesia Plan Discussed Final Anesthetic Review NPO: Yes ASA Class: III Final Preanesthetic Review: No Changes in Pt Med Stat, Meds/Allgs Chart Reviewed, Consent Obtained/Reviewed and Anes Risks/Benef Reviewed Patient Risk: Low Procedure Risk: Low Anesthetic Plan Anesthetic Plan: MAC: Disposition: Standard PACU
--- NOTE | 2023-03-21 15:48 | MHC.SHP ---
Pre-Procedural Eval Section A Date of Service: 03/21/23 The patient is an INPATIENT: No Changes since office visit: Yes Patient answered all questions; No Cold of Flu in the past 2 weeks, No New Medical Problems and No Changes in Medication The History & Physical has been completed within 30 days and I have reviewed it.: Yes Section B Chief Complaint: Angiodysplasia of stomach and duodenum,gerd Allergies: Allergies Allergy/AdvReac Type Severity Reaction Status Date / Time No Known Allergies Allergy Verified 03/20/23 12:14 Plan I have reviewed the history and physical and performed a pertinent physical examination on my patient. No changes have occurred unless specified. Time Spent With Patient Time: Total time managing care of this patient today ____ minutes.
--- NOTE | 2023-03-21 15:49 | P.OP_ITS ---
Operative Note Operative Note Date of Service: 03/21/23 Narrative: FLEXIBLE TRANSORAL UPPER GASTROINTESTINAL ENDOSCOPY WITH BIOPSIES AND APC TREATMENT OF GAVE Pre-op diagnosis: recurrent anemia, FU of GAVE Post-op diagnosis: gastric antral vascular ectasia, nodule duodenal bowel Endoscopist:? Terry Freeman MD Anesthesia:?MAC Consent: Indications for the procedure and potential complications of bleeding, perforation, reaction to medications and missed diagnosis were discussed with the patient and informed consent was obtained. Instrument: Olympus GIF H 190 mid size upper endoscope Monitoring: Vital signs and clinical assessment, continuous EKG monitoring, Pulse oximetry, Carbon Dioxide monitoring and blood pressure monitoring were done throughout the procedure. Procedure: The patient was placed in the left lateral decubitis position and pre-procedure medications were administered and a bite block was placed. The endoscope was inserted into the mouth and advanced under direct vision to the third part of duodenum. A careful inspection was made as the upper endoscope was withdrawn including a retroflexed examination of the proximal stomach; Findings and interventions are described below. Findings: Larynx: Normal Esophagus: GE junction at 38 cms. No esophagitis or Torres's. 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 Mild gastric erythema. Biopsies were obtained. Grade 2 flap valve on retroflexed examination of the cardia. Duodenum: A 10 mm benign appearing nodule in the proximal bulb - biopsied. Normal descending duodenum Intervention: Biopsies as noted above Impression and Post Procedure Diagnosis: Endoscopy Findings: STOMACH: Recurrent GAVE - treated with Argon Plasma Coagulation (APC) DUODENUM: benign-appearing nodule in the bulb Plan: Await pathology results Patient has an appointment on 04/08/23 in the GI Clinic with Lynn Camarillo FNP- BC. Above findings were reviewed with the patient.
[2023-03-21 15:55] VITALS: BMI 27.1
[2023-03-21] MEDS: Lactated Ringers 1,000 ML 100 ML IVCONT (16:06)
[2023-03-21 16:12] LABS: Glucose, Whole Blood 85 mg/dL (60-115)
[2023-03-21 16:24] VITALS: BP 132/75; PULSE 75; RESP 16; TEMP 36.1; O2SAT 96
--- NOTE | 2023-03-21 16:50 | PC.NURSE ---
prior to procedure received information on need to confirm insurance for patient. Discussion with director and conversion had with daughter who then had begun the steps to confirm insurance. around 45 minutes later confirmation provided by daughter and I had conversation with Insurance verification with [facility] I believe it was Samson Daugherty who I spoke and insurance confirmed active as per her by phone. Following this information patient prep completed and patient transitioned to procedure room with team.
[2023-03-21 17:16] VITALS: BP 100/53; PULSE 73; RESP 18; TEMP 36.1; O2SAT 93
[2023-03-21 17:20] LABS: Glucose, Whole Blood 86 mg/dL (60-115)
[2023-03-21 17:31] VITALS: BP 119/59; PULSE 88; RESP 16; O2SAT 98
[2023-03-21 17:46] VITALS: BP 119/68; PULSE 82; RESP 14; TEMP 36.8; O2SAT 98
== END 2023-03-21 17:58 | disposition home or self-care (01) ==
PROVIDERS: PCP Pediatrics; Visit Provider Internal Medicine Gastroenterology
PROC: 0DJ08ZZ Inspection of Upper Intestinal Tract, Via Natural or Artificial Opening Endoscopic (ICD-10-PCS; CPT 43235; principal; 2023-03-21 15:10)
DX: K31.811 Angiodysplasia of stomach and duodenum with bleeding (principal); K21.00 Gastro-esophageal reflux disease with esophagitis, without bleeding; K29.80 Duodenitis without bleeding; K58.9 Irritable bowel syndrome, unspecified; E11.9 Type 2 diabetes mellitus without complications; E78.00 Pure hypercholesterolemia, unspecified; I10 Essential (primary) hypertension; Z79.899 Other long term (current) drug therapy; Z79.4 Long term (current) use of insulin
CPT/HCPCS: 43239; 43255; 82947; 88305; 88342; J3010

== ENCOUNTER → 2023-03-21 13:38 | Outpatient (BNV) | payer OTHER, SELFPAY | PROVIDERS: PCP Pediatrics; Visit Provider Internal Medicine Gastroenterology | DX: D64.9 Anemia, unspecified (principal); K31.811 Angiodysplasia of stomach and duodenum with bleeding; D13.2 Benign neoplasm of duodenum; K31.819 Angiodysplasia of stomach and duodenum without bleeding | CPT/HCPCS: 43239 ==

== ENCOUNTER 2023-04-04 08:45 | Outpatient (REF) | payer OTHER, SELFPAY ==
--- NOTE | 2023-04-04 08:47 | EMG_ITS ---
Chief complaint: Bilateral hand numbness, right worse than Reason for referral: Evaluate for Carpal Tunnel Syndrome Procedure done: Bilateral upper extremities NCS/EMG Precautions and/or limitations: None The limb temperature was monitored continuously and remained between 32-36 degrees C during the performance of the NCS. Nerve Conduction Studies Anti Sensory Summary Table ?Stim Site NR Onset (ms) Norm Onset (ms) Peak (ms) Norm Peak (ms) O-P Amp (?V) Norm O-P Amp Site1 Site2 Delta-0 (ms) Dist (cm) Nick (m/s) Norm Nick (m/s) Left Median Anti Sensory (2nd Digit) Wrist ? 3.7 4.4 <3.6 7.6 >10 Wrist 2nd Digit 3.7 14.0 38 Right Median Anti Sensory (2nd Digit) Wrist ? 3.5 3.9 <3.6 4.6 >10 Wrist 2nd Digit 3.5 14.0 40 Left Radial Anti Sensory (Thumb) Forearm ? 2.1 2.6 <3.1 10.1 Forearm Thumb 2.1 0.0 Left Ulnar Anti Sensory (5th Digit) Wrist ? 2.6 3.3 <3.7 27.3 >15.0 Wrist 5th Digit 2.6 14.0 54 Right Ulnar Anti Sensory (5th Digit) Wrist ? 1.5 3.2 <3.7 18.0 >15.0 Wrist 5th Digit 1.5 14.0 93 Motor Summary Table ?Stim Site NR Onset (ms) Norm Onset (ms) O-P Amp (mV) Norm O-P Amp iAmp (mV) Amp (1st) (%) Site1 Site2 Delta-0 (ms) Dist (cm) Nick (m/s) Norm Nick (m/s) Left Median Motor (Abd Poll Brev) Wrist ? 3.4 <3.9 8.5 >4.5 10.5 100.0 Elbow Wrist 3.8 18.5 49 >45 Elbow ? 7.2 8.1 10.2 95.3 Right Median Motor (Abd Poll Brev) Wrist ? 3.8 <3.9 10.5 >4.5 13.6 100.0 Elbow Wrist 4.3 20.0 47 >45 Elbow ? 8.1 10.5 13.5 100.0 Left Ulnar Motor (Abd Dig Minimi) Wrist ? 2.7 <3.0 5.0 >5 7.3 100.0 B Elbow Wrist 3.2 16.5 52 >45 B Elbow ? 5.9 5.0 7.2 100.0 A Elbow B Elbow 2.0 10.0 50 >45 A Elbow ? 7.9 5.5 7.8 110.0 Right Ulnar Motor (Abd Dig Minimi) Wrist ? 2.7 <3.0 6.5 >5 7.9 100.0 B Elbow Wrist 3.2 18.5 58 >45 B Elbow ? 5.9 3.8 5.7 58.5 A Elbow B Elbow 2.1 10.0 48 >45 A Elbow ? 8.0 3.5 5.2 53.8 EMG ?Side Muscle Nerve Root Ins Act Fibs Psw Amp Dur Poly Recrt Int Pat Comment Right 1stDorInt Ulnar C8-T1 Nml Nml Nml Nml Nml 0 Nml Complete Right FlexCarRad Median C6-7 Nml Nml Nml Nml Nml 0 Nml Complete Right Biceps Musculocut C5-6 Nml Nml Nml Nml Nml 0 Nml Complete Right Triceps Radial C6-7-8 Nml Nml Nml Nml Nml 0 Nml Complete Right Deltoid Axillary C5-6 Nml Nml Nml Nml Nml 0 Nml Complete Left 1stDorInt Ulnar C8-T1 Nml Nml Nml Nml Nml 0 Nml Complete Left FlexCarRad Median C6-7 Nml Nml Nml Nml Nml 0 Nml Complete Left Biceps Musculocut C5-6 Nml Nml Nml Nml Nml 0 Nml Complete Left Triceps Radial C6-7-8 Nml Nml Nml Nml Nml 0 Nml Complete Left Deltoid Axillary C5-6 Nml Nml Nml Nml Nml 0 Nml Complete FINDINGS: Bilateral median sensory nerves showed prolonged peak latency and small amplitude. All other nerves tested were within normal. Concentric needle EMG was performed in selected muscles of the bilateral upper extremities. Study did not reveal signs of electric abnormalities as shown in the table below. IMPRESSION: 1. This is an abnormal study. 2. There is electrodiagnostic evidence for bilateral mild median neuropathy at the wrists, consistent with carpal tunnel syndrome. 3. There is no electrodiagnostic evidence for ulnar neuropathy, brachial plexopathy, or cervical radiculopathy. Radhika Colon MD, NELLY Board Certified, [place] [employer] and Rehabilitation (ABPMR) Board Certified, [place] Board of Electrodiagnostic Medicine (ABEM) Codin [id number] x 2 [facility]
== END 2023-04-04 08:46 | disposition home or self-care (01) ==
LOC: HO.NEURO 08:45
PROVIDERS: PCP Pediatrics; Visit Provider Physical Medicine & Rehabilitation
DX: G56.03 Carpal tunnel syndrome, bilateral upper limbs (principal)
CPT/HCPCS: 95886; 95911

== ENCOUNTER → 2023-04-04 08:47 | Outpatient (BNV) | payer OTHER, SELFPAY | PROVIDERS: PCP Pediatrics; Visit Provider Physical Medicine & Rehabilitation | DX: G56.03 Carpal tunnel syndrome, bilateral upper limbs (principal) | CPT/HCPCS: 95886; 95911 ==

== ENCOUNTER 2023-04-08 12:09 | Outpatient (REF) | payer OTHER, SELFPAY ==
[2023-04-08 14:06] LABS: Hematocrit 37.7 % (37.0-47.0); Hemoglobin 11.7 g/dl (12.0-16.0); Mean Corpuscular Hemoglobin 25.4 pg (27.0-33.0); Mean Corpuscular Volume 81.8 fL (80.0-98.0); Mean Platelet Volume 11.1 fL (9.4-12.3); Platelet Count 317 X10*3/uL (160-400); Red Blood Count 4.61 X10*6/uL (4.20-5.50); Red Cell Distribution Width 13.9 % (11.0-16.0); White Blood Count 9.5 X10*3/uL (4.8-10.8)
== END 2023-04-08 12:10 | disposition home or self-care (01) ==
LOC: HO.LAB 12:09
PROVIDERS: PCP Pediatrics; Visit Provider Nurse Practitioner Family
DX: K21.00 Gastro-esophageal reflux disease with esophagitis, without bleeding (principal); K31.819 Angiodysplasia of stomach and duodenum without bleeding; K58.9 Irritable bowel syndrome, unspecified; R68.81 Early satiety
CPT/HCPCS: 36415; 85027; 99212

== ENCOUNTER 2023-04-08 12:09 | Outpatient (AMB) | payer OTHER, SELFPAY ==
[2023-04-08 12:15] VITALS: BP 114/71; PULSE 83; BMI 27.0
--- NOTE | 2023-04-08 12:15 | A.OFFVIS_ITS ---
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 Will repeat CBC today. (2) GERD with esophagitis: ?Code(s): K21.00 - Gastro-esophageal reflux disease with esophagitis, without bleeding ?Qualifiers: ?Esophagitis bleeding:?without hemorrhage? Qualified Code(s):?K21.00 - Gastro-esophageal reflux disease with esophagitis, without bleeding ?Plan: Continue omeprazole no morning and famotidine at bedtime.? Patient will be sent for upper endoscopy (3) IBS (irritable bowel syndrome): ?Code(s): K58.9 - Irritable bowel syndrome without diarrhea ?Qualifiers: ?Irritable bowel syndrome type:?without diarrhea? Qualified Code(s):? K58.9 - Irritable bowel syndrome without diarrhea ?Plan: Continue avoiding dietary triggers.? Patient currently is moving her bowels better.? Occasional cramping in her abdomen if she has to go to the bathroom and feels better after bowel movement.? Patient was encouraged however if she is going to have trouble moving her bowels to go back and start her Linzess.? I will see patient after upper endoscopy, sooner on as needed basis.? Patient is agreeable to this plan and verbalizes understanding of instructions.? She was given the opportunity to ask questions and all questions answered.? UPPER ENDOSCOPY Findings: Larynx:??Normal Esophagus:?GE junction at 38 cms. No esophagitis or Torres's. 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 Mild gastric erythema. Biopsies were obtained. Grade 2 flap valve on retroflexed examination of the cardia. Duodenum: A 10 mm benign appearing nodule in the proximal bulb - biopsied. Normal descending duodenum Intervention: Biopsies as noted above Impression and Post Procedure Diagnosis: Endoscopy Findings: STOMACH: Recurrent GAVE - treated with? Argon Plasma Coagulation (APC) DUODENUM:? benign-appearing nodule in the bulb PATHOLOGY RESULTS Diagnosis A.? Gastric antrum, biopsy:? Gastric antral mucosa with focal lamina propria hemorrhage and minimal chronic inactive gastritis; negative for H pylori, intestinal metaplasia and dysplasia (see comment).? B.? Duodenum, nodule, biopsy:? Chronic/non-specific duodenitis with mildly blunted villi and foveolar metaplasia; negative for dysplasia. Comment: (A):? There are no regenerative changes, ectatic vessels or fibrin thrombi identified.? Gastric antral vascular ectasia cannot be confirmed. TODAY'S VISIT Patient is here today for follow-up and to discuss upper endoscopy results. Upper endoscopy discussed with patient and her son. Recurrent GAVE treated with APC. Will repeat patient's blood work today. Patient denies any dyspepsia, dysphagia or odynophagia. Denies any melena, hematochezia, unintentional weight loss or ribbon like stools. Patient reports to be feeling better. She is taking omeprazole in the morning and famotidine at bedtime on as needed basis. Patient reports that she has restarted Trulicity a month ago. Patient reports that she has been feeling full after meals and does not have much appetite to eat her dinner. Patient's A1c in January was 10.4 and her dose of Trulicity was increased to 1.5 mg a week. Patient denies any nausea or vomiting. Denies any other GI concerning symptoms. [facility] Medical History AC joint arthropathy Bilateral lower extremity edema Diabetes mellitus Dysphagia Elevated cholesterol GAVE (gastric antral vascular ectasia) Helicobacter pylori infection HTN (hypertension) Surgical History History of cataract extraction Hx of colonoscopy Hx of esophagogastroduodenoscopy Family History Mother HTN (hypertension) Cancer Father Paralysis Social History Household Members: Spouse and Family Housing: House Alcohol intake: current Alcohol intake frequency: does not drink Patient Tobacco Use Status: Never used Tobacco Current occupational status: unemployed Review of Systems Const Denies weight gain and Denies weight loss ENT Reports no additional complaints, Denies dysphagia and Denies odynophagia Card Reports no additional complaints Resp Reports no additional complaints GI Denies abdominal pain, Denies belching, Denies melena, Denies bloating, Denies change in bowel habits, Denies dysphagia, Denies excessive flatus, Denies dyspepsia, Denies heartburn, Denies diarrhea, Denies loose stools, Denies nausea, Denies odynophagia and Denies vomiting Reports no additional complaints Musc Reports no additional complaints Neuro Reports no additional complaints Psych Reports no additional complaints Endo Reports no additional complaints Physical Exam Vital Signs: Last Vital Signs Pulse 83 04/08/23 12:15 BP 114/71 04/08/23 12:15 BMI result Body Mass Index 27.0 Const General: healthy appearing, no acute distress and well developed Nutritional Appearance: well nourished Orientation/consciousness: patient oriented x3 HEENT Head: Yes normal to inspection, Yes normocephalic and Yes atraumatic Face and sinus: Yes normal facial exam Mouth: Normal oral and palatal mucosa present Throat: Yes posterior oropharynx normal, Yes tonsils normal and Yes uvula midline Eyes General: appearance normal, both eyes and all related structures Neck Neck: Yes normal visual inspection, Yes full ROM and Yes trachea midline Thyroid: Thyroid normal Resp Effort & Inspection: normal respiratory effort, able to speak in complete sentences, no tracheal deviation and symmetric chest movement Auscultation: clear to auscultation bilaterally Cardio Rate: regular rate Heart sounds: S1 normal heart sound present and S2 normal heart sound present GI Inspection: Yes normal to inspection and No distended Palpation (GI): Soft to palpation, not firm, nontender and No hepatosplenomegaly present Auscultation: normal bowel sounds General: Yes no CVA tenderness Back/Spine/Pelvis Back: no CVA tenderness Skin General skin exam: elasticity normal, turgor normal and dry skin Neuro General: patient oriented x3 Psych Appearance: grossly normal Mental Status: mental status grossly normal Speech and movement: Normal speech and movement present Assessment & Plan Assessment & Plan (1) GAVE (gastric antral vascular ectasia): Code(s): K31.819 - Angiodysplasia of stomach and duodenum without bleeding Plan: Recurrent GAVE on upper endoscopy. Treated with APC with ablation. Will repeat blood work today (2) GERD with esophagitis: Code(s): K21.00 - Gastro-esophageal reflux disease with esophagitis, without bleeding Qualifiers: Esophagitis bleeding: without hemorrhage Qualified Code(s): K21.00 - Gastro-esophageal reflux disease with esophagitis, without bleeding Plan: Continue taking omeprazole every morning half an hour before breakfast. Patient can use famotidine on as needed basis. Discussed with patient avoiding dietary triggers and late night snacking. Staying upright for minimum 3 hours after meals discussed with patient. (3) Early satiety: Code(s): R68.81 - Early satiety Plan: Patient reports feeling full after eating her lunch meal and does not have appetite to eat anything for dinner. Will contact patient's PCP to see if dose of Trulicity could be reduced and adding additional agent to control her diabetes. Patient A1c was 10.4. Suboptimal treatment obviously. Patient was encouraged to eat smaller meals and more often. Will wait for ordering gastric emptying test. Patient's sister who is a physician in [place] was present for part of the appointment via telephone. After discussion we will wait on getting gastric emptying study. Patient did started with the symptoms after Trulicity dose was increased. I will see patient in 3 months, sooner on as needed basis. Patient is agreeable to this plan and verbalizes understanding of instructions. She was given the opportunity to ask questions and all questions answered. Thank you for allowing me to participate in her care Orders: Orders Complete Blood Count no Diff Today K21.9 - Gastro-esophageal reflux disease without esophagitis Medications: Changed From omeprazole 20 mg PO DAILY 60 days 90 caps 1RF K21.00 - Gastro-esophageal reflux disease with esophagitis, without bleeding To omeprazole 20 mg PO DAILY 90 caps 1RF K21.00 - Gastro-esophageal reflux disease with esophagitis, without bleeding Discontinued docusate sodium 100 mg PO BEDTIME 90 caps 3RF K59.00 - Constipation, unspecified linaclotide (Linzess) Discontinued Reason: Doctor's Order 72 mcg PO DAILY 30 caps 3RF Coding Level of Care Code Est Pt Level 4 (23258) Diagnoses GAVE (gastric antral vascular ectasia) K31.819 GERD with esophagitis K21.00 Esophagitis bleeding: without hemorrhage Early satiety R68.81 Time Spent (min) 40 Comment 25 minutes spent with patient and additional 15 minutes spent reviewing her records
== END 2023-04-08 12:47 | disposition home or self-care (01) ==
PROVIDERS: PCP Pediatrics; Visit Provider Nurse Practitioner Family
DX: K31.819 Angiodysplasia of stomach and duodenum without bleeding (principal); K21.00 Gastro-esophageal reflux disease with esophagitis, without bleeding; R68.81 Early satiety
CPT/HCPCS: 99214

== ENCOUNTER 2023-04-23 08:45 | Outpatient (AMB) | payer OTHER, SELFPAY ==
[2023-04-23 08:51] VITALS: BMI 27.5
--- NOTE | 2023-04-23 08:51 | A.OFFVIS_ITS ---
Intake Vital Signs 04/23/23 08:51 Height 5 ft 4 in Weight 160 lb BMI 27.5 Intake Visit Reasons: ov- B/L hand EMG review Intake Note: Brandon is a 62 year old right hand dominant female who presents today for a follow up s/p EMG of bilateral hands. Right worse than Left. She states using the wrist braces which help her at night. Allergies No Known Allergies Allergy (Verified 04/23/23 08:57) HPI HPI Comments History of Present Illness Details Previously seen for right shoulder pain, since August. Denies injury or fall. She follows rheumatology Dr. Alfredo for CREST. Recent flare up but improved. Seen by ortho for shoulder. Had PT for 6 weeks, improved. ROM now improved. Posterior pain especially at night. She says today that it is worse with heavy lifting. She massages this to feel better. Bilateral hand numbness when she wakes up, chronic, on and off. Affects all fingers. Good human resources records clerk. Not dropping things. Points to upper back pain as source of pain but denies neck pain, on and off. We have done EMG which showed bilateral mild Carpal Tunnel Syndrome. She says it only bothers when she carries heavy things. She is now wearing the braces, which help. Treatment done so far: therapy Diabetic, admits to numbness on feet occasionally. HbA1c 8.5 last October. [facility] Medical History AC joint arthropathy Bilateral lower extremity edema Diabetes mellitus Dysphagia Elevated cholesterol GAVE (gastric antral vascular ectasia) Helicobacter pylori infection HTN (hypertension) Surgical History History of cataract extraction Hx of colonoscopy Hx of esophagogastroduodenoscopy Family History Mother HTN (hypertension) Cancer Father Paralysis Social History Household Members: Spouse and Family Housing: House Alcohol intake: current Alcohol intake frequency: does not drink Patient Tobacco Use Status: Never used Tobacco Current occupational status: unemployed Physical Exam Vital Signs: BMI result Body Mass Index 27.5 Constitutional: Patient appears to be in no acute distress, well nourished and well developed. MSK: Inspection reveals appropriate head and neck positioning. No pain with palpation over the neck musculature. Mild tenderness over right rhomboids. Mild tenderness over AC joint. Cervical ROM was full. Spurling's sign negative. Shoulder abduction and flexion limited due to pain. Empty can test is negative. Speed's test is negative. Neer's test is negative. Hawkin's test is positive mildly right. Negative carpal compression. Negative Tinel sign. No intrinsic hand weakness. No atrophy Strength is 5/5 in all muscle groups tested. No increased tone noted. Neurological: Neurologic examination of the upper and lower extremities was nonfocal with intact sensation, muscle stretch reflexes and without focal motor deficits . Irving?s negative bilaterally. Results Reviewed Results Reviewed: EMG done: IMPRESSION: 1. This is an abnormal study. 2. There is electrodiagnostic evidence for bilateral mild median neuropathy at the wrists, consistent with carpal tunnel syndrome. 3. There is no electrodiagnostic evidence for ulnar neuropathy, brachial plexopathy, or cervical radiculopathy. XR/XR shoulder RT min 2V IMPRESSION: 1. Mild degenerative changes of the acromioclavicular joint. 2. 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 3. 5 mm sclerotic density in the right humeral head may reflect a bone island, stable from 2017. XR/XR hand RT min 3V IMPRESSION: Mild degenerative changes PIP and DIP joints both hands. No visible acute fracture, dislocation or subluxation seen.? Assessment & Plan Assessment & Plan (1) Carpal tunnel syndrome on both sides: Code(s): G56.03 - Carpal tunnel syndrome, bilateral upper limbs (2) AC joint arthropathy: Code(s): M19.019 - Primary osteoarthritis, unspecified shoulder Plan Discussed to avoid heavy lifting. She does not feel that pain is not bad enough to need steroid injection. Continue to wear wrist braces. No surgery indicated for mild CTS at this time, she agrees. She will continue PT taught exercises. Assessment and plan discussed with patient, and patient was agreeable. All questions were answered thoroughly. Follow-up in 6 months. Radhika Colon MD, NELLY Board Certified, [place] [employer] and Rehabilitation (ABPMR) Board Certified, [place] [employer] Electro[employer] (ABEM) Coding Level of Care Code Est Pt Level 3 (45067) Diagnoses Carpal tunnel syndrome on both sides G56.03 AC joint arthropathy M19.019
== END 2023-04-23 09:21 | disposition home or self-care (01) ==
PROVIDERS: PCP Pediatrics; Visit Provider Physical Medicine & Rehabilitation
DX: G56.03 Carpal tunnel syndrome, bilateral upper limbs (principal); M19.019 Primary osteoarthritis, unspecified shoulder
CPT/HCPCS: 99213

== ENCOUNTER → 2023-04-23 08:45 | Outpatient (BNVA) | payer OTHER, SELFPAY | PROVIDERS: PCP Pediatrics; Visit Provider Physical Medicine & Rehabilitation | DX: G56.03 Carpal tunnel syndrome, bilateral upper limbs (principal); M19.019 Primary osteoarthritis, unspecified shoulder | CPT/HCPCS: 99212 ==

== ENCOUNTER 2023-06-18 10:19 | Outpatient (AMB) | payer OTHER, SELFPAY ==
[2023-06-18 10:22] VITALS: BP 124/60; PULSE 88; BMI 27.0
--- NOTE | 2023-06-18 10:22 | A.OFFVIS_ITS ---
Intake Vital Signs 06/18/23 10:22 Height 5 ft 4 in Weight 157 lb 6.561 oz BMI 27.0 BP 124/60 Blood Pressure Location Lt brachial Position Sitting Pulse 88 Pulse Source Palpation Intake Visit Reasons: crest Intake Note: Patient presents today to follow up on test results and Crest. Would like iron levels checked. Poker Prop Player Required: No Accompanied by: Self / Same As Patient Allergies No Known Allergies Allergy (Verified 06/18/23 10:22) Medication List - Last Reconciled 06/18/23 by Tc Alfredo MD alcohol swabs (Alcohol Prep Pads) 1 pad topical DAILY PRN amlodipine 10 mg PO QAM cholecalciferol (vitamin D3) 50 mcg PO QAM docusate sodium (Colace) 100 mg PO BEDTIME dulaglutide (Trulicity) 0.05 mg subcut QWEEK ergocalciferol (vitamin D2) 1,250 mcg PO QWEEK famotidine (Pepcid) 20 mg PO BEDTIME ferrous sulfate (FeroSul) 325 mg PO DAILY insulin glargine (Lantus Solostar U-100 Insulin) 42 units subcut BEDTIME lancets (TRUEplus Lancets) As directed lisinopril 40 mg PO QAM metformin 1,000 mg PO BID crheyuuf-whr-FB-lycopen-lutein 0.4 mg-300 mcg- 250 mcg (Cerovite Senior) 1 tab PO DAILY fponcznrojly-qwqx-lraiq acid 18-400 mg-mcg (Certavite-Antioxidant) 1 tab PO QAM mupirocin 2% 1 appl topical TID nifedipine ER 60 mg PO DAILY nitroglycerin 2% 0.5 inches transdermal DAILY omeprazole 20 mg PO DAILY pen needle, diabetic (Pentips) As directed polyethylene glycol 3350 (ClearLax) 17 grams PO DAILY simvastatin 10 mg PO BEDTIME HPI HPI Comments History of Present Illness Details The patient presents today for 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 Her sister, the auto club travel counselor from [facility], is on the phone adding additional history and translating for us. Mostly she was bothered during the winter time last year with severe Raynaud's symptoms. She eventually says she has healed up the fingertips. There is still some slight discomfort with pressure over the left 2nd fingertip in right 3rd fingertip. She remains on amlodipine 10 mg daily. I had prescribed some topical nitropaste but she did not seem to need it. She went to physical therapy because of right shoulder pain and that seems to be much less of a problem. She says the range of motion is considerably better. There is no exertional dyspnea or palpitations. She has no other joint pains or swelling, skin changes or dysphagia. She received some intravenous iron for iron deficiency anemia that was seemingly precipitated by bleeding from GAVE. She had another upper endoscopy with some ablation procedures done in March. Lab work in April showed the hemoglobin to be back up to normal. She has not had any visible blood in the stool or melena. She remains on iron tablets but stays away from aspirin. [facility]LY [facility] Medical History AC joint arthropathy Bilateral lower extremity edema Diabetes mellitus Dysphagia Elevated cholesterol GAVE (gastric antral vascular ectasia) Helicobacter pylori infection HTN (hypertension) Surgical History History of cataract extraction Hx of colonoscopy Hx of esophagogastroduodenoscopy Family History Mother HTN (hypertension) Cancer Father Paralysis Social History Household Members: Spouse and Family Housing: House Alcohol intake: current Alcohol intake frequency: does not drink Patient Tobacco Use Status: Never used Tobacco Current occupational status: unemployed Review of Systems Const Details: Negative for appetite change, weight change, fever, chills, malaise and fatigue Eyes Details: Negative for vision change, dry eyes,headaches and dizziness ENT Details: Negative for hearing change, tinnitus, oral ulcer, nose bleeds and oral dryness. Card Details: Negative chest pain, edema and syncope Resp Details: Negative for SOB, cough and wheezing GI Details: Negative indigestion/heartburn, nausea, abdominal pain, bowel changes, diarrhea, constipation and bloody stool. Skin/Breast Details: Still some Raynaud's symptoms in the fingers but the ulcerations have healed. Negative for itching, rash, hives, sun sensitivity, and skin cancer Neuro Details: Negative for epilepsy, palsy, stroke, changes in speech, tingling and weakness Elmo/Lymph Details: Negative for excessive bruising or bleeding. Physical Exam Vital Signs: Last Vital Signs Pulse 88 06/18/23 10:22 BP 124/60 06/18/23 10:22 BMI result Body Mass Index 27.0 APPEARANCE: Patient in no acute distress EYES no redness, pupils equal and reactive to light, eyelids normal EARS:? External ear normal, canal clear and tympanic membrane normal. NOSE/SINUS:? Airflow through both nares, no nasal discharge, no bleeding THROAT:? Oral mucosa moist, no ulcerations NECK:? No thyromegaly or masses, no adenopathy, trachea midline. HEART:? Regulrar rhythm, S1-S2 heard, no murmurs, rubs or gallops. LUNG:? Clear to percussion and auscultation ABD:? Normal bowel sounds, no organomegaly, masses or tenderness. EXTREMITIES:? No edema, no calf tenderness, normal peripheral pulses. SKIN:? No inflammatory or neoplastic lesions.? Normal color and turgor Left 2nd digit: Minimal tenderness, perhaps some atrophy of the soft tissues but the skin looks intact without any significant scarring and normal color and turgor. There is no tenderness or ulceration redness. Right 3rd fingertip: Minimal tenderness but the skin is intact. No color change evident today. There are no areas of calcinosis or telangiectasias. Elsewhere the skin looks normal with no signs of inflammatory disease. JOINT EXAM:.?? Hands:.? Normal pain-free range of motion without tenderness, swelling, increased warmth or erythema. Able to make a full fist and has a good supervisor production managing strength\Wrists:.? Normal pain-free range of motion without tenderness, swelling, increased warmth or erythema Elbows:. Normal pain-free range of motion without tenderness, swelling, increased warmth or erythema. Shoulders:? Right: Abduction seems to be pain-free. There is some minimal discomfort at the extremes of normal internal rotation. There is minimal anterior tenderness without abductor weakness, adenopathy or swelling.? Left:?? Full range of motion without pain. No tenderness, weakness, swelling, increased warmth or erythema. Hips:.? Full range of motion without pain. Hip bursa:.? No tenderness. Knees:.?? Normal pain-free range of motion without tenderness, swelling, increased warmth or erythema.? There is no effusion or crepitation Ankles:? Normal pain-free range of motion without tenderness, swelling, increased warmth or erythema. Feet: Slight 1st MTP bony enlargement without tenderness. No objective signs of Raynaud's phenomena in the feet. No breaks in the skin. Results Reviewed Results Reviewed: Laboratory Tests 02/06/23 04/08/23 09:32 13:07 WBC 9.5 Hgb 10.7 L 11.7 L Hct 37.7 MCV 81.8 ESR 13 C-Reactive Protein 0.12 [place] [id number] Pulmonary Function Report Signed Patient: Brandon Mcgee MR#: [id number] : 1960 Acct:[id number] Age/Sex: 62 / F ADM Date: 02/11/[address]: Tc Alfredo MD Ordering Physician: Tc Alfredo MD Date of Service: 02/11/23 Procedure(s): PFT pulmonary function test Accession Number(s): [id number] cc: Tc Alfredo MD~ INDICATION: _CREST__ syndrome. SPIROMETRY: The FEV1 to FVC 80% with an FEV1 of 1.98 L which is 81% predicted and FVC of 2.47 L which is 77% predicted. No significant response to bronchodilators noted. Maximum voluntary ventilation 45% predicted. LUNG VOLUMES: Total lung capacity 85% predicted with an expiratory residual volume of 50% predicted. DIFFUSION CAPACITY: DLCO of 72% predicted. COMPARISONS: Not available. INTERPRETATION: No obstructive nor restrictive ventilatory defect identified. No significant response to bronchodilators noted. The patient, however, has marked severe decrease in maximal voluntary ventilation which could be secondary to deconditioning although cannot rule out neuromuscular conditions. Lung volumes are normal and the patient does have a mild diffusion impairment. Clinical correlation warranted. Eric Soto MD MR/MODL / [id number] Dictated By: Eric Soto MD Signed By: <Electronically signed by Eric Soto MD> 02/13/23 0791 Assessment & Plan Assessment & Plan (1) Iron deficiency anemia: Comment: received Venofer spring 2022 Code(s): D50.9 - Iron deficiency anemia, unspecified Qualifiers: Iron deficiency anemia type: unspecified iron deficiency Qualified Code(s): D50.9 - Iron deficiency anemia, unspecified (2) GAVE (gastric antral vascular ectasia): Code(s): K31.819 - Angiodysplasia of stomach and duodenum without bleeding (3) CREST syndrome: Comment: partial syndrome: Raynaud's, anticentromere antibody. Her sister is Dr. Chelo Mcgee(nephrology in the [place] [phone]) Code(s): M34.1 - CR(E)ST syndrome (4) Raynauds phenomenon: Comment: 09/2022: ulcerations on fingertips. DAVI, anti-centromere positive Code(s): I73.00 - Raynaud's syndrome without gangrene Plan Her Raynaud's symptoms associated with the partial CREST syndrome seems to be much better after the warmer summer. She is still on the amlodipine. I had tried, last winter, to get approval of a phosphodiesterase 5 inhibitor, sildenafil, but her insurance declined. She did use a bit of nitropaste and the symptoms improved towards the end of the winter. She went for physical therapy because of right shoulder pain consistent with a rotator cuff problem. That did improve and she still is doing home exercises. She had PFTs done in February showing some mild decrease in diffusion capacity but normal lung volumes. The diffusion capacity may have been reduced because of her anemia at the time. The anemia is from iron deficiency due to intermittent bleeding from GAVE. In March she had further treatment of that with some cautery through endoscopy. The last hemoglobin looked good in April but we will recheck that today as well as iron levels. She will continue with the amlodipine. We will have her come back for recheck visit in the winter to assess her Raynaud's symptoms at the time. Orders: Orders Complete Blood Count Auto Diff Today D50.9 - Iron deficiency anemia, unspecified IRON PROFILE Today D50.9 - Iron deficiency anemia, unspecified Coding Level of Care Code Est Pt Level 4 (05256) Diagnoses Iron deficiency anemia, unspecified iron deficiency anemia type D50.9 Iron deficiency anemia type: unspecified iron deficiency GAVE (gastric antral vascular ectasia) K31.819 CREST syndrome M34.1 Raynauds phenomenon I73.00
== END 2023-06-18 10:58 | disposition home or self-care (01) ==
PROVIDERS: PCP Pediatrics; Visit Provider Internal Medicine Rheumatology
DX: D50.9 Iron deficiency anemia, unspecified (principal); K31.819 Angiodysplasia of stomach and duodenum without bleeding; M34.1 CR(E)ST syndrome; I73.00 Raynaud's syndrome without gangrene
CPT/HCPCS: 99214

== ENCOUNTER → 2023-06-18 10:19 | Outpatient (BNVA) | payer OTHER, SELFPAY | PROVIDERS: PCP Pediatrics; Visit Provider Internal Medicine Rheumatology | DX: D50.9 Iron deficiency anemia, unspecified (principal); K31.819 Angiodysplasia of stomach and duodenum without bleeding; I73.00 Raynaud's syndrome without gangrene; M34.1 CR(E)ST syndrome | CPT/HCPCS: 99212 ==

== ENCOUNTER 2023-06-18 11:09 | Outpatient (REF) | payer OTHER, SELFPAY ==
[2023-06-18 13:25] LABS: MANUAL DIFF FLAG NO
[2023-06-18 13:33] LABS: Basophils Percent Auto 0.5 % (0-2); Eosinophils Absolute Auto 0.2 X10*3/uL (0.0-0.4); Eosinophils Percent Auto 2.1 % (0-4); Hematocrit 34.9 % (37.0-47.0); Hemoglobin 10.6 g/dl (12.0-16.0); Imm Gran Abs Auto 0.02 X10*3/uL (0.00-0.03); Imm Gran Pct Auto 0.3 % (0.0-0.4); Lymphocytes Absolute Auto 2.2 X10*3/uL (1.2-4.9); Lymphocytes Percent Auto 29.4 % (20-40); Mean Corpuscular HGB Conc 30.4 g/dl (31.0-35.0); Mean Corpuscular Hemoglobin 24.3 pg (27.0-33.0); Mean Platelet Volume 10.3 fL (9.4-12.3); Monocytes Absolute Auto 0.5 X10*3/uL (0.1-1.2); Neutrophils Absolute Auto 4.7 x10*3/uL (2.0-8.3); Neutrophils Percent Auto 61.7 % (45-73); Platelet Count 320 X10*3/uL (160-400); Red Blood Count 4.36 X10*6/uL (4.20-5.50); White Blood Count 7.6 X10*3/uL (4.8-10.8)
[2023-06-18 14:11] LABS: Iron 55 mcg/dL (30-160); Percent Iron Saturation 18 % (15-50); Total Iron Binding Capacity 300 mcg/dL (228-428); Unsaturated Iron Binding 245 ug/dL
== END 2023-06-18 11:10 | disposition home or self-care (01) ==
LOC: HO.10HDL 11:09
PROVIDERS: Visit Provider Internal Medicine Rheumatology
DX: D50.9 Iron deficiency anemia, unspecified (principal)
CPT/HCPCS: 36415; 83540; 85025

== ENCOUNTER 2023-07-08 09:12 | Outpatient (AMB) | payer OTHER, SELFPAY ==
--- NOTE | 2023-07-08 09:16 | MHC.OFFVIS ---
Intake Vital Signs 07/08/23 09:20 Height 5 ft 4 in Weight 156 lb 8.451 oz BMI 26.9 BP 118/57 L Blood Pressure Location Lt brachial Position Sitting Pulse 92 Intake Visit Reasons: 3 month follow up Intake Note: Brandon presents in the office today as a 3 month follow up. CC: She states that she is feeling okay! Everything is good. 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 Treated with APC with ablation. Will repeat blood work today GERD with esophagitis Continue taking omeprazole every morning half an hour before breakfast. Patient can use famotidine on as needed basis. Discussed with patient avoiding dietary triggers and late night snacking. Staying upright for minimum 3 hours after meals discussed with patient. Early satiety Patient reports feeling full after eating her lunch meal and does not have appetite to eat anything for dinner. Will contact patient's PCP to see if dose of Trulicity could be reduced and adding additional agent to control her diabetes. Patient A1c was 10.4. Suboptimal treatment obviously. Patient was encouraged to eat smaller meals and more often. Will wait for ordering gastric emptying test. Patient's sister who is a physician in [place] was present for part of the appointment via telephone. After discussion we will wait on getting gastric emptying study. Patient did started with the symptoms after Trulicity dose was increased. I will see patient in 3 months, sooner on as needed basis. Patient is agreeable to this plan and verbalizes understanding of instructions. She was given the opportunity to ask questions and all questions answered. ? Thank you for allowing me to participate in her care Plan Orders Orders Complete Blood Count no Diff Today K21.9 - Gastro-esophageal reflux disease without esophagitis Medications Changed From omeprazole 20 mg PO DAILY 60 days 90 caps 1RF K21.00 - Gastro-esophageal reflux disease with esophagitis, without bleeding To omeprazole 20 mg PO DAILY 90 caps 1RF K21.00 - Gastro-esophageal reflux disease with esophagitis, without bleeding Discontinued docusate sodium 100 mg PO BEDTIME 90 caps 3RF K59.00 - Constipation, unspecified linaclotide (Linzess) Discontinued Reason: Doctor's Order 72 mcg PO DAILY 30 caps 3RF TODAY'S VISIT: Patient is here today for follow-up. Patient reports that since the last time I have seen her she has been feeling well. Reports that her symptoms of acid reflux are suppressed. Patient is moving her bowels without any issues. She change her diet, eating more vegetables now. Taking oral iron. Reports that her stools are block. In June patient had low H&H will repeat levels today. H&H in June was 10.6 and 34.9, MCV 80. Patient reports that she has been feeling well denies feeling tired weak or dizzy. Patient reports to have good energy level PFSH Medical History AC joint arthropathy GAVE (gastric antral vascular ectasia) Bilateral lower extremity edema Helicobacter pylori infection HTN (hypertension) Elevated cholesterol Diabetes mellitus Dysphagia Surgical History Hx of esophagogastroduodenoscopy Hx of colonoscopy History of cataract extraction Family History Mother HTN (hypertension) Cancer Father Paralysis Social History Household Members: Spouse and Family Housing: House Alcohol intake: current Alcohol intake frequency: does not drink Patient Tobacco Use Status: Never used Tobacco Current occupational status: unemployed Review of Systems Const Denies weight gain and Denies weight loss ENT Reports no additional complaints, Denies dysphagia and Denies odynophagia Card Reports no additional complaints Resp Reports no additional complaints GI Denies abdominal pain, Denies belching, Denies melena, Denies bloating, Denies change in bowel habits, Denies dysphagia, Denies excessive flatus, Denies dyspepsia, Denies heartburn, Denies diarrhea, Denies loose stools, Denies nausea, Denies odynophagia and Denies vomiting Musc Reports no additional complaints Neuro Reports no additional complaints Psych Reports no additional complaints Endo Reports no additional complaints Physical Exam Vital Signs: Last Vital Signs Pulse 92 07/08/23 09:20 BP 118/57 L 07/08/23 09:20 BMI result Body Mass Index 26.9 Const General: healthy appearing, no acute distress and well developed Nutritional Appearance: well nourished Orientation/consciousness: patient oriented x3 HEENT Head: Yes normal to inspection, Yes normocephalic and Yes atraumatic Face and sinus: Yes normal facial exam Mouth: Normal oral and palatal mucosa present Throat: Yes posterior oropharynx normal, Yes tonsils normal and Yes uvula midline Eyes General: appearance normal, both eyes and all related structures Neck Neck: Yes normal visual inspection, Yes full ROM and Yes trachea midline Thyroid: Thyroid normal Resp Effort & Inspection: normal respiratory effort, able to speak in complete sentences, no tracheal deviation and symmetric chest movement Auscultation: clear to auscultation bilaterally Cardio Rate: regular rate GI Inspection: Yes normal to inspection and No distended Palpation (GI): Soft to palpation, not firm, nontender and No hepatosplenomegaly present Auscultation: normal bowel sounds General: Yes no CVA tenderness Back/Spine/Pelvis Back: no CVA tenderness Skin General skin exam: elasticity normal, turgor normal and dry skin Neuro General: patient oriented x3 Psych Appearance: grossly normal Mental Status: mental status grossly normal Affect: normal affect Results Reviewed Results Reviewed: Laboratory Tests 06/18/23 11:15 Hgb 10.6 L Hct 34.9 L MCV 80.0 MCH 24.3 L MCHC 30.4 L Assessment & Plan Assessment & Plan (1) GAVE (gastric antral vascular ectasia): Code(s): K31.819 - Angiodysplasia of stomach and duodenum without bleeding (2) Iron deficiency anemia: Comment: received Venofer spring 2022 Code(s): D50.9 - Iron deficiency anemia, unspecified Qualifiers: Iron deficiency anemia type: unspecified iron deficiency Qualified Code(s): D50.9 - Iron deficiency anemia, unspecified (3) GERD with esophagitis: Code(s): K21.00 - Gastro-esophageal reflux disease with esophagitis, without bleeding Qualifiers: Esophagitis bleeding: without hemorrhage Qualified Code(s): K21.00 - Gastro-esophageal reflux disease with esophagitis, without bleeding Plan Patient will continue omeprazole in the morning and famotidine at bedtime. Discussed with patient avoiding dietary triggers and late night snacking. Will recheck blood work today, if continues to be anemic patient will be scheduled for upper endoscopy to evaluate for GAVE in the antrum. Patient denies any epigastric pain or discomfort at this time. Patient will use Colace on as needed basis if she is constipated. Follow-up with Hematology. I will see patient in 3 months, sooner on as needed basis. Patient is agreeable to this plan and verbalizes understanding of instructions. She was given the opportunity to ask questions and all questions answered. Thank you for allowing me to participate in her care Orders: Orders Complete Blood Count no Diff Today K21.9 - Gastro-esophageal reflux disease without esophagitis IRON PROFILE Today D64.9 - Anemia, unspecified Ferritin Today R74.8 - Abnormal levels of other serum enzymes Vitamin B12 and Folate Today R19.7 - Diarrhea, unspecified Coding Level of Care Code Est Pt Level 4 (95243) Diagnoses GAVE (gastric antral vascular ectasia) K31.819 Iron deficiency anemia, unspecified iron deficiency anemia type D50.9 Iron deficiency anemia type: unspecified iron deficiency Gastroesophageal reflux disease with esophagitis without hemorrhage K21.00 Esophagitis bleeding: without hemorrhage Time Spent (min) 35 Comment 20 minutes spent with patient and additional 15 minutes spent reviewing her records
[2023-07-08 09:20] VITALS: BP 118/57; PULSE 92; BMI 26.9
== END 2023-07-08 09:51 | disposition home or self-care (01) ==
PROVIDERS: PCP Pediatrics; Visit Provider Nurse Practitioner Family
DX: K31.819 Angiodysplasia of stomach and duodenum without bleeding (principal); D50.9 Iron deficiency anemia, unspecified; K21.00 Gastro-esophageal reflux disease with esophagitis, without bleeding
CPT/HCPCS: 99214

== ENCOUNTER 2023-07-08 09:12 | Outpatient (REF) | payer OTHER, SELFPAY ==
[2023-07-08 11:34] LABS: Hematocrit 36.3 % (37.0-47.0); Hemoglobin 11.1 g/dl (12.0-16.0); Mean Corpuscular HGB Conc 30.6 g/dl (31.0-35.0); Mean Corpuscular Hemoglobin 24.9 pg (27.0-33.0); Mean Corpuscular Volume 81.4 fL (80.0-98.0); Mean Platelet Volume 12.1 fL (9.4-12.3); Platelet Count 251 X10*3/uL (160-400); Red Blood Count 4.46 X10*6/uL (4.20-5.50); Red Cell Distribution Width 16.1 % (11.0-16.0); White Blood Count 7.2 X10*3/uL (4.8-10.8)
[2023-07-08 12:36] LABS: Vitamin B12 238 pg/mL (200-900)
[2023-07-08 12:51] LABS: Ferritin 16 ng/mL (10-250); Iron 62 mcg/dL (30-160); Percent Iron Saturation 20 % (15-50); Total Iron Binding Capacity 306 mcg/dL (228-428); Unsaturated Iron Binding 244 ug/dL
== END 2023-07-08 09:13 | disposition home or self-care (01) ==
LOC: HO.LAB 09:12
PROVIDERS: PCP Pediatrics; Visit Provider Nurse Practitioner Family
DX: R74.8 Abnormal levels of other serum enzymes (principal); R19.7 Diarrhea, unspecified; K31.819 Angiodysplasia of stomach and duodenum without bleeding; K21.00 Gastro-esophageal reflux disease with esophagitis, without bleeding; D50.9 Iron deficiency anemia, unspecified
CPT/HCPCS: 36415; 82607; 82728; 82746; 83540; 85027; 99212

== ENCOUNTER 2023-10-01 11:42 | Outpatient (REF) | payer MEDICARE, SELFPAY ==
[2023-10-01 16:04] LABS: Estimated Average Glucose 192 mg/dL; Hemoglobin A1c % 8.3 % (<6.0)
[2023-10-01 17:46] LABS: Alanine Aminotransferase 14 U/L (0-31); Albumin Level 3.9 g/dL (3.5-5.0); Alkaline Phosphatase 63 U/L (39-117); Anion Gap 12 (12-20); Aspartate Amino Transferase 12 U/L (5-31); Bilirubin Total 0.4 mg/dL (0.0-1.0); Blood Urea Nitrogen 18 mg/dL (9-16); Calcium 9.5 mg/dL (8.4-10.2); Carbon Dioxide 24 mmol/L (22-29); Chloride 106 mmol/L (96-108); Cholesterol 181 mg/dL (<200); Estimated Glomerular Filt Rate > 60; Glucose Random 305 mg/dL (60-115); HDL Cholesterol 45 mg/dL (>40); LDL Cholesterol Calculated 89 mg/dL (<100); Potassium 4.6 mmol/L (3.3-5.1); Sodium 137 mmol/L (135-145); Triglycerides 238 mg/dL (<150)
[2023-10-01 18:03] LABS: TSH reflex Free T4 3.77 uIU/mL (0.32-4.0)
== END 2023-10-01 11:43 | disposition home or self-care (01) ==
LOC: HO.CHCLDS 11:42
PROVIDERS: Visit Provider Internal Medicine
DX: E11.65 Type 2 diabetes mellitus with hyperglycemia (principal); Z79.4 Long term (current) use of insulin
CPT/HCPCS: 36415; 80053; 80061; 83036; 84443

== ENCOUNTER 2023-10-07 09:46 | Outpatient (REF) | payer SELFPAY ==
[2023-10-07 11:08] LABS: Hematocrit 32.6 % (37.0-47.0); Mean Corpuscular HGB Conc 30.7 g/dl (31.0-35.0); Mean Corpuscular Hemoglobin 24.6 pg (27.0-33.0); Mean Corpuscular Volume 80.3 fL (80.0-98.0); Mean Platelet Volume 10.8 fL (9.4-12.3); Platelet Count 303 X10*3/uL (160-400); Red Blood Count 4.06 X10*6/uL (4.20-5.50); Red Cell Distribution Width 15.2 % (11.0-16.0); White Blood Count 7.4 X10*3/uL (4.8-10.8)
[2023-10-07 11:47] LABS: Iron 64 mcg/dL (30-160); Percent Iron Saturation 20 % (15-50); Total Iron Binding Capacity 327 mcg/dL (228-428); Unsaturated Iron Binding 263 ug/dL
[2023-10-07 12:02] LABS: Ferritin 10 ng/mL (10-250)
== END 2023-10-07 09:47 | disposition home or self-care (01) ==
LOC: HO.LAB 09:46
PROVIDERS: PCP Pediatrics; Visit Provider Nurse Practitioner Family
DX: K21.00 Gastro-esophageal reflux disease with esophagitis, without bleeding (principal); K31.819 Angiodysplasia of stomach and duodenum without bleeding; D50.9 Iron deficiency anemia, unspecified
CPT/HCPCS: 36415; 82728; 83540; 85027; 99212

== ENCOUNTER 2023-10-07 09:46 | Outpatient (AMB) | payer OTHER, SELFPAY ==
--- NOTE | 2023-10-07 09:51 | A.OFFVIS_ITS ---
Intake Vital Signs 10/07/23 09:53 Height 5 ft 4 in Weight 154 lb 5.177 oz BMI 26.5 BP 170/65 H Blood Pressure Location Lt brachial Position Sitting Pulse 85 Intake Visit Reasons: 3 month follow up Intake Note: Brandon presents in the office as a 3 month follow up. CC: She states that she is not having any concerns. [employer] Required: No Allergies No Known Allergies Allergy (Verified 10/07/23 09:53) HPI 3 month follow up HPI Details LAST VISIT GAVE (gastric antral vascular ectasia) Iron deficiency anemia GERD with esophagitis Plan Patient will continue omeprazole in the morning and famotidine at bedtime. Discussed with patient avoiding dietary triggers and late night snacking. Will recheck blood work today, if continues to be anemic patient will be scheduled for upper endoscopy to evaluate for GAVE in the antrum. Patient denies any epigastric pain or discomfort at this time. Patient will use Colace on as needed basis if she is constipated. Follow-up with Hematology. I will see patient in 3 months, sooner on as needed basis. Patient is agreeable to this plan and verbalizes understanding of instructions. She was given the opportunity to ask questions and all questions answered. ? Thank you for allowing me to participate in her care Orders Orders Complete Blood Count no Diff Today K21.9 IRON PROFILE Today D64.9 Ferritin Today R74.8 Vitamin B12 and Folate Today R19.7 TODAY'S VISIT Patient is here today for follow-up and to discuss lab results. Patient reports that she has been feeling very well. Patient reports that her symptoms of acid reflux are suppressed with omeprazole. Patient is using famotidine on as needed basis. Patient is accompanied by her son and patient's sister is also present for part of the appointment phone. Patient denies any melena, hematochezia, unintentional weight loss or ribbon like stools. Patient denies any dyspepsia, dysphagia or odynophagia. Patient's A1c is 8.3 and patient's son admits that patient is eating carbohydrates like naan bread rice and potatoes. PFSH Medical History AC joint arthropathy GAVE (gastric antral vascular ectasia) Bilateral lower extremity edema Helicobacter pylori infection HTN (hypertension) Elevated cholesterol Diabetes mellitus Dysphagia Surgical History Hx of esophagogastroduodenoscopy Hx of colonoscopy History of cataract extraction Family History Mother HTN (hypertension) Cancer Father Paralysis Social History Household Members: Spouse and Family Housing: House Alcohol intake: current Alcohol intake frequency: does not drink Patient Tobacco Use Status: Never used Tobacco Current occupational status: unemployed Review of Systems Const Denies weight gain and Denies weight loss ENT Reports no additional complaints, Denies dysphagia and Denies odynophagia Card Reports no additional complaints Resp Reports no additional complaints GI Denies abdominal pain, Denies belching, Denies melena, Denies bloating, Denies change in bowel habits, Denies dysphagia, Denies excessive flatus, Denies dyspepsia, Denies heartburn, Denies diarrhea, Denies loose stools, Denies nausea, Denies odynophagia and Denies vomiting Reports no additional complaints Musc Reports no additional complaints Neuro Reports no additional complaints Psych Reports no additional complaints Endo Reports no additional complaints Physical Exam Vital Signs: Last Vital Signs Pulse 85 10/07/23 09:53 BP 170/65 H 10/07/23 09:53 BMI result Body Mass Index 26.5 Const General: healthy appearing, no acute distress and well developed Nutritional Appearance: well nourished Orientation/consciousness: patient oriented x3 Resp Effort & Inspection: normal respiratory effort, able to speak in complete s entences, no tracheal deviation and symmetric chest movement Auscultation: clear to auscultation bilaterally Cardio Rate: regular rate GI Inspection: Yes normal to inspection and No distended Palpation (GI): Soft to palpation, not firm, nontender and No hepatosplenomegaly present Auscultation: normal bowel sounds General: Yes no CVA tenderness Back/Spine/Pelvis Back: no CVA tenderness Skin General skin exam: elasticity normal, turgor normal and dry skin Neuro General: patient oriented x3 Psych Appearance: grossly normal Mental Status: mental status grossly normal Results Reviewed Results Reviewed: Laboratory Tests 07/08/23 10/01/23 10:20 11:43 Hgb 11.1 L Hct 36.3 L MCV 81.4 Hemoglobin A1c % 8.3 H Iron 62 TIBC 306 % Saturation 20 Unsat Iron Binding 244 Ferritin 16 Vitamin B12 238 Folate 15.0 Assessment & Plan Assessment & Plan (1) GERD with esophagitis: Code(s): K21.00 - Gastro-esophageal reflux disease with esophagitis, without bleeding Qualifiers: Esophagitis bleeding: without hemorrhage Qualified Code(s): K21.00 - Gastro-esophageal reflux disease with esophagitis, without bleeding (2) GAVE (gastric antral vascular ectasia): Code(s): K31.819 - Angiodysplasia of stomach and duodenum without bleeding (3) Iron deficiency anemia: Comment: received Venofer spring 2022 Code(s): D50.9 - Iron deficiency anemia, unspecified Qualifiers: Iron deficiency anemia type: unspecified iron deficiency Qualified Code(s): D50.9 - Iron deficiency anemia, unspecified Plan Continue omeprazole and use famotidine on as needed basis. Patient currently has no symptoms. Will recheck CBC if significant drop patient will need to go for upper endoscopy and will need to stop aspirin. I will see patient in 3 months, sooner on as needed basis. Patient is agreeable to this plan and verbalizes understanding of instructions. She was given the opportunity to ask questions and all questions answered. Thank you for allowing me to participate in her care Orders: Orders Complete Blood Count no Diff Today K21.9 - Gastro-esophageal reflux disease without esophagitis Ferritin Today K21.00 - Gastro-esophageal reflux disease with esophagitis, without bleeding IRON PROFILE Today D64.9 - Anemia, unspecified Coding Level of Care Code Est Pt Level 3 (37397) Diagnoses Gastroesophageal reflux disease with esophagitis without hemorrhage K21.00 Esophagitis bleeding: without hemorrhage GAVE (gastric antral vascular ectasia) K31.819 Iron deficiency anemia, unspecified iron deficiency anemia type D50.9 Iron deficiency anemia type: unspecified iron deficiency Time Spent (min) 30 Comment 20 minutes spent with patient and additional 10 minutes spent reviewing her records
[2023-10-07 09:53] VITALS: BP 170/65; PULSE 85; BMI 26.5
== END 2023-10-07 10:26 | disposition home or self-care (01) ==
PROVIDERS: PCP Pediatrics; Visit Provider Nurse Practitioner Family
DX: K21.00 Gastro-esophageal reflux disease with esophagitis, without bleeding (principal); K31.819 Angiodysplasia of stomach and duodenum without bleeding; D50.9 Iron deficiency anemia, unspecified
CPT/HCPCS: 99213

== ENCOUNTER 2023-10-22 10:26 | Outpatient (REF) | payer OTHER, SELFPAY ==
[2023-10-22 10:29] VITALS: BP 132/72; PULSE 87; RESP 18; TEMP 37.2; O2SAT 98
[2023-10-22] MEDS: Iron Sucrose Complex 200 MG in 0.9 % Sodium Chloride 100 ML 440 MG IV (10:42)
== END 2023-10-22 10:27 | disposition home or self-care (01) ==
LOC: HO.MDS 10:26
PROVIDERS: Visit Provider Internal Medicine
DX: D50.9 Iron deficiency anemia, unspecified (principal)
CPT/HCPCS: 96374; J1756

== ENCOUNTER 2023-11-24 16:05 | Outpatient (AMB) | payer MEDICARE, SELFPAY ==
[2023-11-24 16:07] VITALS: BP 116/68; PULSE 70; O2SAT 99; BMI 27.2
--- NOTE | 2023-11-24 16:07 | A.OFFVIS_ITS ---
Vital Signs 11/24/23 16:07 Height 5 ft 4 in Weight 158 lb 11.725 oz BMI 27.2 BP 116/68 Blood Pressure Location Rt brachial Position Sitting Pulse 70 Pulse Source Pulse Oximeter Pulse Oximetry (%) 99 Oxygen Delivery Method Room Air Intake Visit Reasons: asif ace with dr manley Intake Note: Patient last seen 06/18/23 presents today for follow up and test results. C/o bl hand pain Assistant Hall Director Required: No Accompanied by: Self / Same As Patient Allergies No Known Allergies Allergy (Verified 11/24/23 16:10) Medication List - Last Reconciled 11/24/23 by Elijah Chau MD alcohol swabs (Alcohol Prep Pads) 1 pad topical DAILY PRN amlodipine 10 mg PO QAM aspirin 81 mg PO DAILY cholecalciferol (vitamin D3) 50 mcg PO QAM docusate sodium (Colace) 100 mg PO BEDTIME dulaglutide (Trulicity) 0.75 mg subcut DAILY famotidine (Pepcid) 20 mg PO BEDTIME ferrous sulfate (FeroSul) 325 mg PO BID insulin glargine (Lantus Solostar U-100 Insulin) 42 units subcut BEDTIME lancets (TRUEplus Lancets) As directed lisinopril 40 mg PO QAM metformin 1,000 mg PO BID uotvkpai-xfw-FU-lycopen-lutein 0.4 mg-300 mcg- 250 mcg (Cerovite Senior) 1 tab PO DAILY tzoikbqcdtgt-zolj-vzkyk acid 18-400 mg-mcg (Certavite-Antioxidant) 1 tab PO QAM mupirocin 2% 1 appl topical TID nitroglycerin 2% 0.5 inches transdermal DAILY omeprazole 20 mg PO DAILY pen needle, diabetic (Pentips) As directed polyethylene glycol 3350 (ClearLax) 17 grams PO DAILY simvastatin 10 mg PO BEDTIME HPI Comments Details: 63-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 States that she continues to have episodes of tingling and numbness of her fingertips but overall she is doing well. She gets intermittent feeling of her legs improves with raising her legs and massaging them. Denies any chest pain or shortness of breath. She is doing fairly well overall Most recent history by Dr. lAfredo 06/2023: The patient presents today for 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 Her sister, the hospital administrative assistant from [facility], is on the phone adding additional history and translating for us. Mostly she was bothered during the winter time last year with severe Raynaud's symptoms. She eventually says she has healed up the fingertips. There is still some slight discomfort with pressure over the left 2nd fingertip in right 3rd fingertip. She remains on amlodipine 10 mg daily. I had prescribed some topical nitropaste but she did not seem to need it. She went to physical therapy because of right shoulder pain and that seems to be much less of a problem. She says the range of motion is considerably better. There is no exertional dyspnea or palpitations. She has no other joint pains or swelling, skin changes or dysphagia. She received some intravenous iron for iron deficiency anemia that was seemingly precipitated by bleeding from GAVE. She had another upper endoscopy with some ablation procedures done in March. Lab work in April showed the hemoglobin to be back up to normal. She has not had any visible blood in the stool or melena. She remains on iron tablets but stays away from aspirin. [facility] Medical History AC joint arthropathy GAVE (gastric antral vascular ectasia) Bilateral lower extremity edema Helicobacter pylori infection HTN (hypertension) Elevated cholesterol Diabetes mellitus Dysphagia Surgical History Hx of esophagogastroduodenoscopy Hx of colonoscopy History of cataract extraction Family History Mother HTN (hypertension) Cancer Father Paralysis Social History Household Members: Spouse and Family Housing: House Alcohol intake: current Alcohol intake frequency: does not drink Patient Tobacco Use Status: Never used Tobacco Current occupational status: unemployed Review of Systems Const Denies weight gain and Denies weight loss Resp Reports no additional complaints Musc Reports numbness Neuro Reports numbness Physical Exam Vital Signs: Last Vital Signs Pulse 70 11/24/23 16:07 BP 116/68 11/24/23 16:07 Pulse Ox 99 11/24/23 16:07 Oxygen Delivery Method Room Air 11/24/23 16:07 BMI result Body Mass Index 27.2 Const General: cooperative, healthy appearing and comfortable Nutritional Appearance: overweight Orientation/consciousness: patient oriented x3 Limitations: no limitations HEENT Head: Yes normocephalic and Yes atraumatic Mouth: moist mucous membranes Resp Effort & Inspection: normal respiratory effort and able to speak in complete sentences Auscultation: clear to auscultation bilaterally Cardio Rate: regular rate Rhythm: regular rhythm Heart sounds: Murmur heart sound present systolic GI Inspection: No distended Palpation (GI): Soft to palpation and nontender Skin General skin exam: no rashes or lesions noted Neuro General: patient oriented x3 Extrem Other: Mild puffiness of her fingers but no skin thickening No active synovitis Positive Tinel sign right hand No tapering of her fingertips No open digital tip ulcers Few dilated loops and hemorrhages on nailfold capillaroscopy Assessment & Plan Assessment & Plan (1) CREST syndrome: Comment: dx 09/2022 Raynaud's, digital tip ulcers, GAVE, abnormal nailfold capillaroscopy, anticentromere antibody. Her sister is Dr. Chelo Mcgee(nephrology in the [place] [phone]) Code(s): M34.1 - CR(E)ST syndrome Category: Medical Plan: This is a 63-year-old female with scleroderma who presents for follow-up. This is her 1st visit with me. She used to follow-up with Dr. Alfredo. Her tubes are well controlled. Raynaud's is well controlled with current management. Continue with amlodipine 10 mg daily. Discussed conservative management for Raynaud's such as keeping core and extremity temperature warmth. Using gloves, glove warmers. Raynaud symptoms should improve as the weather is getting warmer Follow-up in 4 months (2) Raynauds phenomenon: Code(s): I73.00 - Raynaud's syndrome without gangrene Category: Medical Qualifiers: Raynaud?s-associated gangrene presence: without gangrene Qualified Code(s): I73.00 - Raynaud's syndrome without gangrene Plan: Symptoms well controlled as mentioned above (3) Bilateral lower extremity edema: Code(s): R60.0 - Localized edema Category: Medical Plan: Mild symptoms. Potentially a side effect of amlodipine however patient needs it. Advised patient to raise her legs, can consider wearing compression stockings. Plan I spent 30 minutes reviewing patient's chart, evaluating patient, counseling patient and documenting in the chart
== END 2023-11-24 16:33 | disposition home or self-care (01) ==
LOC: HO.RHE 16:05
PROVIDERS: PCP Pediatrics; Visit Provider Student in an Organized Health Care Education/Training Program
DX: M34.1 CR(E)ST syndrome (principal); I73.00 Raynaud's syndrome without gangrene; R60.0 Localized edema
CPT/HCPCS: 99214

== ENCOUNTER → 2023-11-24 16:05 | Outpatient (BNVA) | payer MEDICARE, SELFPAY | PROVIDERS: PCP Pediatrics; Visit Provider Student in an Organized Health Care Education/Training Program | DX: M34.1 CR(E)ST syndrome (principal); I73.00 Raynaud's syndrome without gangrene; R60.0 Localized edema | CPT/HCPCS: 99212 ==

== ENCOUNTER 2023-12-16 08:30 | Outpatient (RCR) | payer MEDICARE, SELFPAY ==
[2023-11-18 08:37] VITALS: BP 148/72; PULSE 89; RESP 16; TEMP 36.6; O2SAT 96
[2023-11-18] MEDS: Iron Sucrose Complex 200 MG in 0.9 % Sodium Chloride 100 ML 440 MG IV (08:43)
[2023-11-18] MEDS: 0.9 % Sodium Chloride Flush 10 ML SYRINGE 5 ML IVFLUSH (08:43)
[2023-11-25 08:39] VITALS: BP 149/76; PULSE 78; RESP 16; TEMP 36.7; O2SAT 100
[2023-11-25] MEDS: 0.9 % Sodium Chloride Flush 10 ML SYRINGE 5 ML IVFLUSH (08:47)
[2023-11-25] MEDS: Iron Sucrose Complex 200 MG in 0.9 % Sodium Chloride 100 ML 440 MG IV (08:47)
[2023-12-02 08:49] VITALS: BP 131/72; PULSE 80; RESP 16; TEMP 37.1; O2SAT 100; BMI 26.3
[2023-12-02] MEDS: Iron Sucrose Complex 200 MG in 0.9 % Sodium Chloride 100 ML 440 MG IV (09:07)
[2023-12-02] MEDS: 0.9 % Sodium Chloride Flush 10 ML SYRINGE 5 ML IVFLUSH (09:09)
[2023-12-09 12:45] VITALS: BP 119/66; PULSE 83; RESP 16; TEMP 36.9; O2SAT 99
[2023-12-09] MEDS: Iron Sucrose Complex 200 MG in 0.9 % Sodium Chloride 100 ML 440 MG IV (12:58)
[2023-12-09] MEDS: 0.9 % Sodium Chloride Flush 10 ML SYRINGE 5 ML IVFLUSH (12:58)
[2023-12-16 08:47] VITALS: BP 145/75; PULSE 82; RESP 16; TEMP 36.9; O2SAT 100
[2023-12-16] MEDS: 0.9 % Sodium Chloride Flush 10 ML SYRINGE 5 ML IVFLUSH (08:50)
[2023-12-16] MEDS: Iron Sucrose Complex 200 MG in 0.9 % Sodium Chloride 100 ML 440 MG IV (08:53)
== END 2023-12-16 09:20 | disposition home or self-care (01) ==
LOC: HO.INF 08:30
PROVIDERS: Visit Provider Internal Medicine
DX: D50.9 Iron deficiency anemia, unspecified (principal)
CPT/HCPCS: 96365; 96374; J1756

== ENCOUNTER 2023-12-23 10:00 | Outpatient (REF) | payer MEDICARE, SELFPAY ==
--- NOTE | ~2023-12-23 | MM_ITS ---
EXAMINATION: BONE DENSITOMETRY CLINICAL INDICATION: Encounter for screening for osteoporosis. COMPARISON: Previous BD dated 01/11/2021 and baseline BD dated 08/24/2013. TECHNIQUE: Using a [employer] DXA System (software version: 13.1) manufactured by [employer], dual-energy x-ray absorptiometry was performed of the lumbar spine and left hip. The images are of good technical quality. Summary results are attached. FINDINGS: LEFT FEMUR, NECK: Current: BMD 0.880 g/cm2, Z-score 0.2, T-score -1.1, osteopenia. Prior: BMD 0.875 g/cm2. Baseline: BMD 0.931 g/cm2. LEFT FEMUR, TOTAL: Current: BMD 1.016 g/cm2, Z-score 1.2, T-score 0.1, normal, 0.3% decrease from previous, 2.6% decrease from baseline (<5% change is not significant). Prior: BMD 1.019 g/cm2. Baseline: BMD 1.043 g/cm2. AP SPINE L1-L4: Current: BMD 1.173 g/cm2, Z-score 1.4, T-score -0.1, normal, 5.6% decrease from previous, 7.4% decrease from baseline (<5% change is not significant). Prior: BMD 1.243 g/cm2. Baseline: BMD 1.267 g/cm2. IDENTIFIED RISK FACTORS: Menopause. HISTORY OF FRACTURE: None listed. MEDICATIONS: Calcium supplements or multivitamin, vitamin D. MM/XR DEXA axial skeleton IMPRESSION: 1. DIAGNOSIS: Osteopenia based on the lowest T-score value of -1.1 in the femoral neck applying World Health Organization criteria. 2. 10-YEAR FRACTURE RISK PREDICTION, FRAX: Major osteoporotic fracture (clinical spine, forearm, hip or shoulder) 4.4%. Hip fracture 0.4%. 3. Treatment Recommendations: NOF guidelines recommend consideration for treatment in postmenopausal women and men age 50 and older presenting with the following: -A hip or vertebral (clinical or morphometric) fracture. -T-score less than or equal to -2.5 at the femoral neck or spine after appropriate evaluation to exclude secondary causes. -Low bone mass at the hip or spine and a 10-year fracture probability by FRAX of greater than or equal to 3% for hip fracture or greater than or equal to 20% for major osteoporotic fracture based on the [place] adapted WHO algorithm. 4. Other Recommendations: All treatment decisions require clinical judgment and consideration of individual patient factors, including patient preferences, comorbidities, previous drug use, risk factors not captured in the FRAX model (e.g. frailty, falls, vitamin D deficiency, increased bone turnover, interval significant decline in bone density) and possible under or overestimation of fracture risk by FRAX. Additional medical evaluation for secondary cause of low bone mineral density may be appropriate. FUTURE SCAN RECOMMENDATION: People with diagnosed cases of osteoporosis or at high risk for fracture should have regular bone mineral density tests. For patients eligible for Medicare, routine testing is allowed once every 2 years. The testing frequency can be increased to one year for patients who have rapidly progressing disease, those who are receiving or discontinuing medical therapy to restore bone mass, or have additional risk factors.
--- NOTE | ~2023-12-23 | MM_ITS ---
EXAMINATION: MM SCREENING DIGITAL BREAST TOMOSYNTHESIS, BILATERAL CLINICAL INFORMATION: Screening. Asymptomatic. COMPARISON: Mammography: This study is compared with prior exams dating back to TECHNIQUE: Digital breast tomosynthesis is performed in both the craniocaudal and mediolateral oblique views along with computer-aided detection (CAD). Synthesized 2D images are generated from the tomosynthesis. FINDINGS: There are scattered areas of fibroglandular density (ACR BI-RADS breast composition Category b). There are no significant masses, abnormal calcifications, or other abnormalities. MM/MM tomosynthesis screening BI IMPRESSION: No mammographic evidence of malignancy. ASSESSMENT: BI-RADS BI-RADS 1 - Negative RECOMMENDATION: Routine annual mammography screening. 1 year F/U This examination should not preclude the clinical evaluation of a suspicious palpable abnormality. This patient's information was entered into a reminder system with a target due date for their next mammogram.
== END 2023-12-23 10:01 | disposition home or self-care (01) ==
LOC: HO.MAMMO 10:00
PROVIDERS: PCP Pediatrics; Visit Provider Pediatrics
DX: Z12.31 Encounter for screening mammogram for malignant neoplasm of breast (principal); Z13.820 Encounter for screening for osteoporosis; M85.80 Other specified disorders of bone density and structure, unspecified site; Z78.0 Asymptomatic menopausal state
CPT/HCPCS: 77063; 77067; 77080

== ENCOUNTER → 2023-12-23 10:30 | Outpatient (BNV) | payer MEDICARE, SELFPAY | PROVIDERS: PCP Pediatrics; Visit Provider Radiology Diagnostic Radiology | DX: Z12.31 Encounter for screening mammogram for malignant neoplasm of breast (principal) | CPT/HCPCS: 77063; 77067 ==

== ENCOUNTER 2024-01-09 09:05 | Outpatient (AMB) | payer MEDICARE, SELFPAY ==
--- NOTE | 2024-01-09 09:07 | MHC.OFFVIS ---
Vital Signs 01/09/24 09:11 Height 5 ft 4 in Weight 156 lb 8.451 oz BMI 26.9 BP 136/68 Blood Pressure Location Lt brachial Position Sitting Pulse 84 Pulse Source Pulse Oximeter Pulse Oximetry (%) 98 Oxygen Delivery Method Room Air Intake Visit Reasons: 3 month follow up GERD Intake Note: Brandon presents in office today for a scheduled FUV CC; Pt reports that their condition has remained stable and they deny any new concerns or sx. Cath Lab Radiological Technologist Required: No Allergies No Known Allergies Allergy (Verified 01/09/24 09:10) HPI HPI 3 month follow up GERD: Details: LAST VISIT GERD with esophagitis GAVE (gastric antral vascular ectasia) Iron deficiency anemia Plan Continue omeprazole and use famotidine on as needed basis. Patient currently has no symptoms. Will recheck CBC if significant drop patient will need to go for upper endoscopy and will need to stop aspirin. I will see patient in 3 months, sooner on as needed basis. Patient is agreeable to this plan and verbalizes understanding of instructions. She was given the opportunity to ask questions and all questions answered. ? Thank you for allowing me to participate in her care Orders Orders Complete Blood Count no Diff Today K21.9 Ferritin Today K21.00 IRON PROFILE Today D64.9 TODAY'S VISIT Laboratory Tests 10/01/23 10/07/23 12/09/23 11:43 10:49 11:43 RBC 4.36 Hgb 11.2 L Hct 35.1 L MCV 80.5 Hemoglobin A1c % 8.3 H Iron 64 TIBC 327 % Saturation 20 Unsat Iron Binding 263 Ferritin 10 178 Patient is here today for follow-up. Patient has H&H is remaining stable. Dose of Trulicity was decreased back in July however A1c remains high at 8.3% in September. However patient reports that she has been doing better with her diet. Eating significant amount of vegetables and eats bread only once a day. Patient denies any melena, hematochezia, unintentional weight loss or ribbon like stools. Had her last iron infusion few weeks ago. Patient reports that she has been doing better. Patient denies dyspepsia, dysphagia or odynophagia. Continues to take PPI in the morning and famotidine at bedtime. Patient reports that she is moving her bowels well without any issues. Patient reports some concern about swelling of her bilateral lower extremities right greater than left. 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 Patient reports that when she sits down and puts her feet up the swelling goes down. Patient denies any other GI concerning symptoms. [facility] Medical History AC joint arthropathy GAVE (gastric antral vascular ectasia) Bilateral lower extremity edema Helicobacter pylori infection HTN (hypertension) Elevated cholesterol Diabetes mellitus Dysphagia Surgical History Hx of esophagogastroduodenoscopy Hx of colonoscopy History of cataract extraction Family History Mother HTN (hypertension) Cancer Father Paralysis Social History Household Members: Spouse and Family Housing: House Alcohol intake: current Alcohol intake frequency: does not drink Patient Tobacco Use Status: Never used Tobacco Current occupational status: unemployed Review of Systems Const Denies weight gain and Denies weight loss ENT Reports no additional complaints, Denies dysphagia and Denies odynophagia Card Reports no additional complaints Resp Reports no additional complaints GI Denies abdominal pain, Denies belching, Denies melena, Denies bloating, Denies change in bowel habits, Denies dysphagia, Denies excessive flatus, Denies dyspepsia, Denies heartburn, Denies diarrhea, Denies loose stools, Denies nausea, Denies odynophagia and Denies vomiting Musc Reports no additional complaints Neuro Reports no additional complaints Psych Reports no additional complaints Endo Reports no additional complaints Physical Exam Vital Signs: Last Vital Signs Pulse 84 01/09/24 09:11 BP 136/68 01/09/24 09:11 Pulse Ox 98 01/09/24 09:11 Oxygen Delivery Method Room Air 01/09/24 09:11 BMI result Body Mass Index 26.9 Const General: healthy appearing, no acute distress and well developed Nutritional Appearance: well nourished Orientation/consciousness: patient oriented x3 Resp Effort & Inspection: normal respiratory effort, able to speak in complete sentences, no tracheal deviation and symmetric chest movement Auscultation: clear to auscultation bilaterally Cardio Rate: regular rate GI Inspection: Yes normal to inspection and No distended Palpation (GI): Soft to palpation, not firm, nontender and No hepatosplenomegaly present Auscultation: normal bowel sounds General: Yes no CVA tenderness Back/Spine/Pelvis Back: no CVA tenderness Skin General skin exam: elasticity normal, turgor normal and dry skin Neuro General: patient oriented x3 Psych Appearance: grossly normal Mental Status: mental status grossly normal Assessment & Plan Assessment & Plan (1) Bilateral lower extremity edema: Code(s): R60.0 - Localized edema Category: Medical (2) GERD with esophagitis: Code(s): K21.00 - Gastro-esophageal reflux disease with esophagitis, without bleeding Category: Medical Qualifiers: Esophagitis bleeding: without hemorrhage Qualified Code(s): K21.00 - Gastro-esophageal reflux disease with esophagitis, without bleeding (3) GAVE (gastric antral vascular ectasia): Code(s): K31.819 - Angiodysplasia of stomach and duodenum without bleeding Category: Medical (4) Iron deficiency anemia: Comment: received Venofer spring 2022 Code(s): D50.9 - Iron deficiency anemia, unspecified Category: Medical Qualifiers: Iron deficiency anemia type: unspecified iron deficiency Qualified Code(s): D50.9 - Iron deficiency anemia, unspecified Plan Continue PPI and famotidine. Avoid dietary triggers and late night snacking. Continue p.o. iron, may take stool softeners or MiraLax to help her move her bowels if constipated. We will repeat CBC, CMP, iron profile, ferritin and A1c before her next appointment. Will refer her to vascular surgery most likely venous insufficiency. Patient's sister present on the phone during part of the visit and also is aware of plan. Both patient and her sister are agreeable to plan of care and verbalizes understanding of instructions. They were given the opportunity to ask questions and all questions answered. Thank you for allowing me to participate in her care Orders: Orders Complete Blood Count no Diff Today K21.9 - Gastro-esophageal reflux disease without esophagitis Comprehensive Met. Panel Today K21.9 - Gastro-esophageal reflux disease without esophagitis IRON PROFILE Today D64.9 - Anemia, unspecified Ferritin Today R74.8 - Abnormal levels of other serum enzymes Hemoglobin A1c Today E11.9 - Type 2 diabetes mellitus without complications Referrals Vascular Surgery Referral R60.0 - Localized edema Coding Level of Care Code Est Pt Level 4 (76882) Diagnoses Bilateral lower extremity edema R60.0 Gastroesophageal reflux disease with esophagitis without hemorrhage K21.00 Esophagitis bleeding: without hemorrhage GAVE (gastric antral vascular ectasia) K31.819 Iron deficiency anemia, unspecified iron deficiency anemia type D50.9 Iron deficiency anemia type: unspecified iron deficiency Time Spent (min) 35 Comment 20 minutes spent with patient and additional 15 minutes spent reviewing her records
[2024-01-09 09:11] VITALS: BP 136/68; PULSE 84; O2SAT 98; BMI 26.9
== END 2024-01-09 10:10 | disposition home or self-care (01) ==
PROVIDERS: PCP Pediatrics; Visit Provider Nurse Practitioner Family
DX: R60.0 Localized edema (principal); K21.00 Gastro-esophageal reflux disease with esophagitis, without bleeding; K31.819 Angiodysplasia of stomach and duodenum without bleeding; D50.9 Iron deficiency anemia, unspecified
CPT/HCPCS: 99214

== ENCOUNTER → 2024-01-09 09:05 | Outpatient (BNVA) | payer OTHER, SELFPAY | PROVIDERS: PCP Pediatrics; Visit Provider Nurse Practitioner Family | DX: K21.00 Gastro-esophageal reflux disease with esophagitis, without bleeding (principal); K31.819 Angiodysplasia of stomach and duodenum without bleeding; R60.0 Localized edema; D50.9 Iron deficiency anemia, unspecified | CPT/HCPCS: 99212 ==

== ENCOUNTER 2024-03-11 14:39 | Outpatient (AMB) | payer MEDICARE, SELFPAY ==
[2024-03-11 14:53] VITALS: BMI 26.8
--- NOTE | 2024-03-11 14:53 | A.OFFVIS_ITS ---
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 States she gets burning and itching in the legs. Swelling does go down at night. Accompanied by: Self / Same As Patient Allergies No Known Allergies Allergy (Verified 03/11/24 14:57) HPI HPI [employer]/Gastro referral for LE swelling: Details: Very pleasant 63-year-old female presents for evaluation regarding lower extremity swelling. She notes swelling itching in cramping of bilateral lower extremities. It has been affecting there daily activities including walking and standing which she reports in the past she has done several hours without any issues and now it becomes an issue after 10 minute. It is noted more so in right leg. Of note she has crest syndrome and an element of Raynaud's disease as well Patient denies any previous venous surgery or injections. Patient denies any history of DVT/ PE. Patient denies any history of phlebitis. Trial of compression includes - [id number] They now present for vascular evaluation regarding their varicose veins. [facility] Medical History AC joint arthropathy GAVE (gastric antral vascular ectasia) Bilateral lower extremity edema Helicobacter pylori infection HTN (hypertension) Elevated cholesterol Diabetes mellitus Dysphagia Surgical History Hx of esophagogastroduodenoscopy Hx of colonoscopy History of cataract extraction Family History Mother HTN (hypertension) Cancer Father Paralysis Social History Household Members: Spouse and Family Housing: House Alcohol intake: current Alcohol intake frequency: does not drink Patient Tobacco Use Status: Never used Tobacco Current occupational status: unemployed Review of Systems Const All systems reviewed & are unremarkable except as noted in HPI and below Reports no additional complaints ENT Reports Normal hearing present Card Denies chest pain, Denies chest pain at rest, Denies chest pain with activity and Denies pedal edema Resp Denies cough GI Denies abdominal pain Musc Details: pain over varicosities, aching of lower extremities, swelling, cramping, heaviness and tiredness, itching Denies abnormal gait, Denies muscle cramps and Denies radiating pain into limb Skin/Breast Denies skin ulcer and Denies wounds Neuro Reports Normal hearing present and Denies abnormal gait Psych Reports no additional complaints Physical Exam Vital Signs: BMI result Body Mass Index 26.8 Const General: cooperative, healthy appearing and comfortable Orientation/consciousness: oriented to person, oriented to place and oriented to time HEENT Head: Yes normal to inspection Neck Neck: Yes normal visual inspection Carotids: no bruits Chest Chest palpation & inspection: normal inspection of the chest Resp Effort & Inspection: normal respiratory effort and able to speak in complete sentences Auscultation: clear to auscultation bilaterally, no crackles, no rales, no rhonchi and no wheezes Cardio Rate: regular rate Rhythm: regular rhythm Heart sounds: S1 normal heart sound present and S2 normal heart sound present Bruits: no carotid bruits Peripheral pulses: Peripheral pulses 2+ throughout GI Inspection: Yes normal to inspection Skin Other: +2 edema, right greater than left CEAP Classification C4 - skin color changes Ep - Etiology Primary As - superficial veins P - reflux General skin exam: dry skin Wounds: no wounds Hair: normal Neuro General: oriented to person, oriented to place and oriented to time Cranial nerves: Yes CN's II-XII intact bilaterally and Yes Normal hearing present Cognition (Neuro): normal cognition Motor exam (neuro): 5/5 motor strength present throughout Extrem Other: venous exam: No significant superficial varicosities or spider telangiectasias, minimal edema General: No clubbing, No cyanosis and No edema Right lower extremity: full ROM, normal capillary refill and edema Left lower extremity: full ROM, normal capillary refill and edema Psych Appearance: grossly normal Mental Status: mental status grossly normal Speech and movement: Normal speech and movement present Assessment & Plan Assessment & Plan (1) Varicose veins of right lower extremity with inflammation: Code(s): I83.11 - Varicose veins of right lower extremity with inflammation Category: Medical Plan: In short, the patient has evidence of venous insufficiency. I have discussed the pathophysiology with the patient. In addition I have provided informational material regarding venous disease to the patient. We have discussed conservative measures including compression, elevation, and exercise. I have also provided a handout regarding appropriate use of compression stockings and where to purchase good compression stockings as well. I have taken the liberty of ordering venous insufficiency testing with the patient. They will follow up with me after testing. The patient had an opportunity to ask questions regarding the treatment plan. All questions were answered. Imaging studies, laboratory studies and physical exam results were discussed and reviewed in detail. No major barriers to understanding were identified. The patient expressed understanding and agreement with the above treatment plan. The patient is aware they should contact our office by phone for worsening of the current condition or the appearance of new symptoms. Thank you for allowing me to participate in the vascular care of this patient. If you have any questions or concerns regarding the treatment for the above condition please do not hesitate to contact me. The office telephone contact is [phone]. This note is constructed using voice recognition software. While every effort has been made to ensure accuracy, photographer still errors may have been included. Thank you for allowing me to participate in the care of your patient. Yours sincerely, Thaddeus Chisholm MD, FACS, R.P.V.I. (2) CREST syndrome: Comment: dx 09/2022 Raynaud's, digital tip ulcers, GAVE, abnormal nailfold capillaroscopy, anticentromere antibody. Her sister is Dr. Chelo Mcgee(nephrology in the [place] [phone]) Code(s): M34.1 - CR(E)ST syndrome Category: Medical Plan: Managed by Rheumatology Orders: Orders US venous duplex LE BI 1 Week I83.11 - Varicose veins of right lower extremity with inflammation Coding Level of Care Code New Pt Level 4 (11488) Diagnoses Varicose veins of right lower extremity with inflammation I83.11 CREST syndrome M34.1
== END 2024-03-11 15:20 | disposition home or self-care (01) ==
PROVIDERS: PCP Pediatrics; Visit Provider Surgery Vascular Surgery
DX: I83.11 Varicose veins of right lower extremity with inflammation (principal); M34.1 CR(E)ST syndrome
CPT/HCPCS: 99203

== ENCOUNTER → 2024-03-11 14:39 | Outpatient (BNVA) | payer MEDICARE, SELFPAY | PROVIDERS: PCP Pediatrics; Visit Provider Surgery Vascular Surgery | DX: I83.11 Varicose veins of right lower extremity with inflammation (principal); M34.1 CR(E)ST syndrome | CPT/HCPCS: 99202 ==

== ENCOUNTER 2024-03-23 13:00 | Outpatient (REF) | payer MEDICARE, SELFPAY ==
--- NOTE | ~2024-03-23 | US_ITS ---
EXAMINATION: US LOWER EXTREMITY VENOUS (REFLUX EXAM), BILATERAL CLINICAL INDICATION: Varicose veins of the right lower extremity COMPARISON: None. TECHNIQUE: Color flow triplex imaging and compression Doppler was performed to evaluate both the deep and the superficial systems bilaterally. To evaluate the superficial system, the examination was performed in the upright position. Color-flow Doppler ultrasound and compression ultrasound were utilized. In addition, maneuvers were utilized to demonstrate reflux. FINDINGS: 1. DEEP VENOUS ULTRASOUND OF THE RIGHT LOWER EXTREMITY: Common Femoral Vein: Compressible, normal respiratory variation and augmented flow. Femoral Vein: Compressible, normal color flow and augmentation. Popliteal Vein: Compressible, normal augmentation. Deep Reflux: There is no evidence of reflux in the deep system in either the common femoral vein or the popliteal vein. There is no evidence of a Lee's cyst. 2. SUPERFICIAL ULTRASOUND WITH DOPPLER OF RIGHT LOWER EXTREMITY: GREAT SAPHENOUS VEIN: Saphenofemoral Junction: 0.7 cm; Reflux: 0 ms Proximal Thigh: 0.6 cm; Reflux: 0 ms Mid Thigh: 0.4 cm; Reflux: 748 ms Above Knee: 0.3 cm; Reflux: 0 ms At Knee: 0.3 cm; Reflux: >2420 ms Below Knee: 0.2 cm; Reflux: 0 ms Mid Calf: 0.2 cm; Reflux: 0 ms Ankle: 0.2 cm; Reflux: 0 ms DUPLICATED MEDIAL GREAT SAPHENOUS VEIN: Diameter: None Imaged Reflux: NA DUPLICATED LATERAL GREAT SAPHENOUS VEIN: Diameter: 0.3 cm Reflux: 0 ms SMALL SAPHENOUS VEIN: Proximal: 0.2 cm; Reflux: 0 ms Distal: 0.2 cm; Reflux: 580 ms VEIN OF GIACOMINI: 0.2 cm, 0 ms reflux PERFORATORS: Location: Proximal calf Size: 0.1 cm Reflux: 0 ms Location: Proximal calf Size: 0.2 cm Reflux: 0 ms VARICOSITIES: Location: Thigh distal Size: 0.4 cm Reflux: 0 ms Location: Proximal calf Size: 0.3 cm Reflux: >2656 ms Location: Proximal Size: 0.1 cm Reflux: >3176 ms 3. DEEP VENOUS ULTRASOUND OF THE LEFT LOWER EXTREMITY: Common Femoral Vein: Compressible, normal respiratory variation and augmented flow. Femoral Vein: Compressible, normal color flow and augmentation. Popliteal Vein: Compressible, normal augmentation. Deep Reflux: There is no evidence of reflux in the deep system in either the common femoral vein or the popliteal vein. There is no evidence of a Lee's cyst. 4. SUPERFICIAL ULTRASOUND WITH DOPPLER OF LEFT LOWER EXTREMITY: GREAT SAPHENOUS VEIN: Saphenofemoral Junction: 0.8 cm; Reflux: 0 ms Proximal Thigh: 0.4 cm; Reflux: 0 ms Mid Thigh: 0.3 cm; Reflux: 0 ms Above Knee: 0.3 cm; Reflux: 0 ms At Knee: 0.3 cm; Reflux: 0 ms Below Knee: 0.3 cm; Reflux: 0 ms Mid Calf: 0.2 cm; Reflux: 0 ms Ankle: 0.2 cm; Reflux: 0 ms DUPLICATED MEDIAL GREAT SAPHENOUS VEIN: Diameter: None Imaged Reflux: NA DUPLICATED LATERAL GREAT SAPHENOUS VEIN: Diameter: 0.3 Reflux: 0 ms SMALL SAPHENOUS VEIN: Proximal: 0.1 cm; Reflux: 0 ms Distal: 0.2 cm; Reflux: 0 ms VEIN OF GIACOMINI: None Imaged. PERFORATORS: Location: [place] Size: 0.2 cm Reflux: 0 ms VARICOSITIES: Location: Proximal calf Size: 0.3 cm Reflux: 0 ms US/US venous duplex LE BI IMPRESSION: 1. Right: Segmental reflux in the great saphenous vein at the mid thigh and at the knee. Reflux in the distal small saphenous vein. Multiple refluxing varicosities in the thigh and calf. 2. Left: No significant venous insufficiency. Electronically signed by: Jose Muñoz MD 03/30/2024 11:58 AM EDT Workstation: [id number]
== END 2024-03-23 13:01 | disposition home or self-care (01) ==
LOC: HO.US 13:00
PROVIDERS: PCP Pediatrics; Visit Provider Surgery Vascular Surgery
DX: I83.11 Varicose veins of right lower extremity with inflammation (principal)
CPT/HCPCS: 93970

== ENCOUNTER 2024-03-29 13:37 | Outpatient (AMB) | payer MEDICARE, SELFPAY ==
[2024-03-29 13:43] VITALS: BP 126/70; PULSE 82; O2SAT 97; BMI 27.2
--- NOTE | 2024-03-29 13:43 | A.OFFVIS_ITS ---
Vital Signs 03/29/24 13:43 Height 5 ft 4 in Weight 158 lb 4.67 oz BMI 27.2 BP 126/70 Blood Pressure Location Lt brachial Position Sitting Pulse 82 Pulse Source Pulse Oximeter Pulse Oximetry (%) 97 Oxygen Delivery Method Room Air Intake Visit Reasons: CREST Intake Note: Patient last seen by Doctor Elijah Chau on 11/24/23. Presents today for Crest follow up. Allergies No Known Allergies Allergy (Verified 03/29/24 13:46) Medication List - Last Reconciled 03/29/24 by Elijah Chau MD alcohol swabs (Alcohol Prep Pads) 1 pad topical DAILY PRN amlodipine 10 mg PO QAM aspirin 81 mg PO DAILY blood sugar diagnostic (FreeStyle Lite Strips) As directed cholecalciferol (vitamin D3) 50 mcg PO QAM docusate sodium (Colace) 100 mg PO BEDTIME dulaglutide (Trulicity) 0.75 mg subcut DAILY famotidine (Pepcid) 20 mg PO BEDTIME ferrous sulfate (FeroSul) 325 mg PO BID insulin glargine (Lantus Solostar U-100 Insulin) 42 units subcut BEDTIME lancets (TRUEplus Lancets) As directed lisinopril 40 mg PO QAM metformin 1,000 mg PO BID zlwjcqrh-kbr-FQ-lycopen-lutein 0.4 mg-300 mcg- 250 mcg (Cerovite Senior) 1 tab PO DAILY dvirdppbkdhu-xkys-qjujq acid 18-400 mg-mcg (Certavite-Antioxidant) 1 tab PO QAM mupirocin 2% 1 appl topical TID nitroglycerin 2% 0.5 inches transdermal DAILY omeprazole 20 mg PO DAILY pen needle, diabetic (Pentips) As directed polyethylene glycol 3350 (ClearLax) 17 grams PO DAILY simvastatin 10 mg PO BEDTIME HPI Comments Details: 63-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 States that she continues to have intermittent episode of Raynaud's of her fingertips. Denies any chest pain or shortness of breath. She is doing fairly well overall Most recent history by Dr. 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 Her sister, the pump servicer supervisor from [facility], is on the phone adding additional history and translating for us. Mostly she was bothered during the winter time last year with severe Raynaud's symptoms. She eventually says she has healed up the fingertips. There is still some slight discomfort with pressure over the left 2nd fingertip in right 3rd fingertip. She remains on amlodipine 10 mg daily. I had prescribed some topical nitropaste but she did not seem to need it. She went to physical therapy because of right shoulder pain and that seems to be much less of a problem. She says the range of motion is considerably better. There is no exertional dyspnea or palpitations. She has no other joint pains or swelling, skin changes or dysphagia. She received some intravenous iron for iron deficiency anemia that was seemingly precipitated by bleeding from GAVE. She had another upper endoscopy with some ablation procedures done in March. Lab work in April showed the hemoglobin to be back up to normal. She has not had any visible blood in the stool or melena. She remains on iron tablets but stays away from aspirin. [facility] Medical History AC joint arthropathy GAVE (gastric antral vascular ectasia) Bilateral lower extremity edema Helicobacter pylori infection HTN (hypertension) Elevated cholesterol Diabetes mellitus Dysphagia Surgical History Hx of esophagogastroduodenoscopy Hx of colonoscopy History of cataract extraction Family History Mother HTN (hypertension) Cancer Father Paralysis Social History Household Members: Spouse and Family Housing: House Alcohol intake: current Alcohol intake frequency: does not drink Patient Tobacco Use Status: Never used Tobacco Current occupational status: unemployed Review of Systems Const Denies weight gain and Denies weight loss Resp Reports no additional complaints Physical Exam Vital Signs: Last Vital Signs Pulse 82 03/29/24 13:43 BP 126/70 03/29/24 13:43 Pulse Ox 97 03/29/24 13:43 Oxygen Delivery Method Room Air 03/29/24 13:43 BMI result Body Mass Index 27.2 Const General: cooperative, healthy appearing and comfortable Nutritional Appearance: overweight Orientation/consciousness: patient oriented x3 Limitations: no limitations HEENT Head: Yes normocephalic and Yes atraumatic Mouth: moist mucous membranes Resp Effort & Inspection: normal respiratory effort and able to speak in complete sentences Auscultation: clear to auscultation bilaterally Cardio Rate: regular rate Rhythm: regular rhythm Heart sounds: Murmur heart sound present systolic GI Inspection: No distended Palpation (GI): Soft to palpation and nontender Skin General skin exam: no rashes or lesions noted Neuro General: patient oriented x3 Extrem Other: Mild puffiness of her fingers but no skin thickening No active synovitis No tapering of her fingertips No open digital tip ulcers Some peeling of the skin of the right index Few dilated loops and hemorrhages on nailfold capillaroscopy Results Reviewed Results Reviewed: Laboratory Tests 02/06/23 04/08/23 09:32 13:07 WBC 9.5 Hgb 10.7 L 11.7 L Hct 37.7 MCV 81.8 ESR 13 C-Reactive Protein 0.12 [place] [address] Pulmonary Function Report Signed Patient: Brandon Mcgee MR#: [id number] : 1960 Acct:[id number] Age/Sex: 62 / F ADM Date: 02/11/[address]: Tc Alfredo MD Ordering Physician: Tc Alfredo MD Date of Service: 02/11/23 Procedure(s): PFT pulmonary function test Accession Number(s): [id number] cc: Tc Alfredo MD~ INDICATION: _CREST__ syndrome. SPIROMETRY: The FEV1 to FVC 80% with an FEV1 of 1.98 L which is 81% predicted and FVC of 2.47 L which is 77% predicted. No significant response to bronchodilators noted. Maximum voluntary ventilation 45% predicted. LUNG VOLUMES: Total lung capacity 85% predicted with an expiratory residual volume of 50% predicted. DIFFUSION CAPACITY: DLCO of 72% predicted. COMPARISONS: Not available. INTERPRETATION: No obstructive nor restrictive ventilatory defect identified. No significant response to bronchodilators noted. The patient, however, has marked severe decrease in maximal voluntary ventilation which could be secondary to deconditioning although cannot rule out neuromuscular conditions. Lung volumes are normal and the patient does have a mild diffusion impairment. Clinical correlation warranted. Eric Soto MD MR/MODL / [id number] Dictated By: Eric Soto MD Signed By: <Electronically signed by rEic Soto MD> 02/13/23 1643 Assessment & Plan Assessment & Plan (1) CREST syndrome: Comment: dx 09/2022 Raynaud's, digital tip ulcers, GAVE, abnormal nailfold capillaroscopy, anticentromere antibody. Her sister is Dr. 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 Her symptoms are well controlled, she continues to have minor episodes of Raynaud's. Discussed conservative management for Raynaud's such as keeping core and extremity temperature warmth. Using gloves, glove warmers. Discussed with patient's sister. She stated that tadalafil/sildenafil was pursued by Dr. Alfredo in the past and they were denied by insurance. Went to patient that I think her Raynaud's is well controlled at this time and patient should maximize conservative measures for Raynaud's. Advised patient to take pictures of Raynaud's episodes. I will re-evaluate patient in 2 months, if I think she has active Raynaud's despite amlodipine 10 mg daily and conservative measures, additional medicines such as fluoxetine can be considered Plan to repeat PFT/2D echo next year Follow-up in 2 months (2) Raynauds phenomenon: Code(s): I73.00 - Raynaud's syndrome without gangrene Category: Medical Qualifiers: Raynaud?s-associated gangrene presence: without gangrene Qualified Code(s): I73.00 - Raynaud's syndrome without gangrene Plan: Symptoms well controlled as mentioned above (3) Bilateral lower extremity edema: Code(s): R60.0 - Localized edema Category: Medical Plan: Mild symptoms. Likely to varicose veins as well as a side effect of amlodipine. Advised patient to elevate her legs and wear compression stockings as much as possible Plan I spent 30 minutes reviewing patient's chart, evaluating patient, counseling patient, discussing with sister over the phone and documenting in the chart Coding Level of Care Code Est Pt Level 4 (58133) Diagnoses CREST syndrome M34.1 Raynaud's phenomenon without gangrene I73.00 Raynaud?s-associated gangrene presence: without gangrene Bilateral lower extremity edema R60.0
== END 2024-03-29 14:19 | disposition home or self-care (01) ==
PROVIDERS: PCP Pediatrics; Visit Provider Student in an Organized Health Care Education/Training Program
DX: M34.1 CR(E)ST syndrome (principal); I73.00 Raynaud's syndrome without gangrene; R60.0 Localized edema
CPT/HCPCS: 99214

== ENCOUNTER → 2024-03-29 13:37 | Outpatient (BNVA) | payer MEDICARE, SELFPAY | PROVIDERS: PCP Pediatrics; Visit Provider Student in an Organized Health Care Education/Training Program | DX: M34.1 CR(E)ST syndrome (principal); I73.00 Raynaud's syndrome without gangrene; R60.0 Localized edema | CPT/HCPCS: 99212 ==

== ENCOUNTER 2024-04-07 11:50 | Outpatient (REF) | payer MEDICARE, SELFPAY ==
[2024-04-07 14:57] LABS: Creatinine Urine 177.76 mg/dL; Microalbum/Creatinine Ratio Ur 4.5 ug/mg cr (<30)
== END 2024-04-07 11:51 | disposition home or self-care (01) ==
LOC: HO.CHCLDS 11:50
PROVIDERS: Visit Provider Pediatrics
DX: E11.9 Type 2 diabetes mellitus without complications (principal); Z79.4 Long term (current) use of insulin
CPT/HCPCS: 82043; 82570

== ENCOUNTER 2024-04-14 14:34 | Outpatient (REF) | payer MEDICARE, SELFPAY ==
[2024-04-14 15:10] LABS: Hematocrit 34.8 % (37.0-47.0); Hemoglobin 10.9 g/dl (12.0-16.0); Mean Corpuscular HGB Conc 31.3 g/dl (31.0-35.0); Mean Corpuscular Hemoglobin 25.3 pg (27.0-33.0); Mean Corpuscular Volume 80.9 fL (80.0-98.0); Mean Platelet Volume 10.3 fL (9.4-12.3); Platelet Count 311 X10*3/uL (160-400); Red Cell Distribution Width 15.8 % (11.0-16.0); White Blood Count 8.4 X10*3/uL (4.8-10.8)
[2024-04-14 15:33] LABS: Estimated Average Glucose 169 mg/dL; Hemoglobin A1c % 7.5 % (<6.0)
[2024-04-14 15:53] LABS: Alanine Aminotransferase 14 U/L (0-31); Albumin Level 4.2 g/dL (3.5-5.0); Alkaline Phosphatase 54 U/L (39-117); Anion Gap 11 (12-20); Aspartate Amino Transferase 14 U/L (5-31); Bilirubin Total 0.4 mg/dL (0.0-1.0); Blood Urea Nitrogen 15 mg/dL (9-16); Calcium 9.8 mg/dL (8.4-10.2); Carbon Dioxide 28 mmol/L (22-29); Chloride 108 mmol/L (96-108); Estimated Glomerular Filt Rate 46; Glucose Random 133 mg/dL (60-115); Iron 44 mcg/dL (30-160); Percent Iron Saturation 16 % (15-50); Potassium 4.7 mmol/L (3.3-5.1); Sodium 142 mmol/L (135-145); Total Iron Binding Capacity 271 mcg/dL (228-428); Total Protein 6.9 g/dL (6.5-8.0); Unsaturated Iron Binding 227 ug/dL
[2024-04-14 16:08] LABS: Ferritin 183 ng/mL (10-250)
== END 2024-04-14 14:35 | disposition home or self-care (01) ==
LOC: HO.LAB 14:34
PROVIDERS: PCP Pediatrics; Visit Provider Nurse Practitioner Family
DX: D64.9 Anemia, unspecified (principal); K21.9 Gastro-esophageal reflux disease without esophagitis; R74.8 Abnormal levels of other serum enzymes; E11.9 Type 2 diabetes mellitus without complications
CPT/HCPCS: 36415; 80053; 82728; 83036; 83540; 85027

== ENCOUNTER 2024-04-14 15:00 | Outpatient (RCR) | payer MEDICARE, SELFPAY ==
[2024-03-24 14:33] VITALS: BP 125/66; PULSE 88; RESP 18; TEMP 36.9; O2SAT 97
[2024-03-24] MEDS: Iron Sucrose Complex 200 MG in 0.9 % Sodium Chloride 100 ML 440 MG IV (14:43)
[2024-03-24] MEDS: 0.9 % Sodium Chloride Flush 10 ML SYRINGE 5 ML IVFLUSH (14:59)
[2024-03-31 14:37] VITALS: BP 127/65; PULSE 87; RESP 18; TEMP 36.4; O2SAT 98
[2024-03-31] MEDS: Iron Sucrose Complex 200 MG in 0.9 % Sodium Chloride 100 ML 440 MG IV (14:43)
[2024-04-07 15:20] VITALS: BP 135/75; PULSE 79; RESP 16; TEMP 36.6; O2SAT 100
[2024-04-07] MEDS: Iron Sucrose Complex 200 MG in 0.9 % Sodium Chloride 100 ML 440 MG IV (15:21)
[2024-04-07] MEDS: 0.9 % Sodium Chloride Flush 10 ML SYRINGE 5 ML IVFLUSH (15:36)
[2024-04-14 14:57] VITALS: BP 139/74; PULSE 81; RESP 18; TEMP 37; O2SAT 100
[2024-04-14] MEDS: Iron Sucrose Complex 200 MG in 0.9 % Sodium Chloride 100 ML 440 MG IV (15:03)
== END 2024-04-14 15:21 | disposition home or self-care (01) ==
LOC: HO.INF 15:00
PROVIDERS: Visit Provider Internal Medicine
DX: D50.9 Iron deficiency anemia, unspecified (principal)
CPT/HCPCS: 96374; J1756

== ENCOUNTER 2024-04-20 09:34 | Outpatient (AMB) | payer MEDICARE, SELFPAY ==
[2024-04-20 09:39] VITALS: BP 144/64; PULSE 82; O2SAT 100; BMI 27.2
--- NOTE | 2024-04-20 09:39 | A.OFFVIS_ITS ---
Vital Signs 04/20/24 09:39 Height 5 ft 4 in Weight 158 lb 4.67 oz BMI 27.2 BP 144/64 H Blood Pressure Location Lt brachial Position Sitting Pulse 82 Pulse Source Pulse Oximeter Pulse Oximetry (%) 100 Oxygen Delivery Method Room Air Intake Visit Reasons: 3 month follow up Intake Note: Brandon presents in office today for a scheduled 3 mos FUV. CC; Pt denies any current sx or concerns at this time. Pt states that they have been doing well since their last visit. Pt reports that they are currently seeing Dr. Amos for LE edema B/L. Pt denies any other concerns. Pt denies any need for refills at this time. [employer] Liaison [employer] Required: No Allergies No Known Allergies Allergy (Verified 04/20/24 09:40) HPI HPI 3 month follow up: Details: LAST VISIT Bilateral lower extremity edema GERD with esophagitis GAVE (gastric antral vascular ectasia) Iron deficiency anemia Plan Continue PPI and famotidine. Avoid dietary triggers and late night snacking. Continue p.o. iron, may take stool softeners or MiraLax to help her move her bowels if constipated. We will repeat CBC, CMP, iron profile, ferritin and A1c before her next appointment. Will refer her to vascular surgery most likely venous insufficiency. Patient's sister present on the phone during part of the visit and also is aware of plan. Both patient and her sister are agreeable to plan of care and verbalizes understanding of instructions. They were given the opportunity to ask questions and all questions answered. ? Thank you for allowing me to participate in her care Orders Orders Complete Blood Count no Diff Today K21.9 Comprehensive Met. Panel Today K21.9 IRON PROFILE Today D64.9 Ferritin Today R74.8 Hemoglobin A1c Today E11.9 Referrals Vascular Surgery Referral R60.0 TODAY'S VISIT Patient is here today for follow-up. Patient reports that she has been doing fairly well. Continues to can omeprazole in her symptoms of acid reflux are suppressed. Patient no longer is taking famotidine at bedtime. Patient denies any dyspepsia, dysphagia or odynophagia. Patient denies any melena, hematochezia. Patient continues to see Dr. Valdivia. Patient finished her IV iron therapy and currently is on p.o. iron. Patient reports that she is able to move her bowels well without any issues. Patient seen vascular surgeon and had her ultrasound couple weeks ago. Patient's sister is available on the phone during the visit [facility] Medical History AC joint arthropathy GAVE (gastric antral vascular ectasia) Bilateral lower extremity edema Helicobacter pylori infection HTN (hypertension) Elevated cholesterol Diabetes mellitus Dysphagia Surgical History Hx of esophagogastroduodenoscopy Hx of colonoscopy History of cataract extraction Family History Mother HTN (hypertension) Cancer Father Paralysis Social History Household Members: Spouse and Family Housing: House Alcohol intake: current Alcohol intake frequency: does not drink Patient Tobacco Use Status: Never used Tobacco Current occupational status: unemployed Review of Systems Const Denies weight gain and Denies weight loss ENT Reports no additional complaints, Denies dysphagia and Denies odynophagia Card Reports no additional complaints Resp Reports no additional complaints GI Denies abdominal pain, Denies belching, Denies melena, Denies bloating, Denies change in bowel habits, Denies dysphagia, Denies excessive flatus, Denies dyspepsia, Denies heartburn, Denies diarrhea, Denies loose stools, Denies nausea, Denies odynophagia and Denies vomiting Musc Reports no additional complaints Neuro Reports no additional complaints Psych Reports no additional complaints Endo Reports no additional complaints Physical Exam Vital Signs: Last Vital Signs Pulse 82 04/20/24 09:39 BP 144/64 H 04/20/24 09:39 Pulse Ox 100 04/20/24 09:39 Oxygen Delivery Method Room Air 04/20/24 09:39 BMI result Body Mass Index 27.2 Const General: healthy appearing, no acute distress and well developed Nutritional Appearance: well nourished Orientation/consciousness: patient oriented x3 Resp Effort & Inspection: normal respiratory effort, able to speak in complete sentences, no tracheal deviation and symmetric chest movement Auscultation: clear to auscultation bilaterally Cardio Rate: regular rate GI Inspection: Yes normal to inspection and No distended Palpation (GI): Soft to palpation, not firm, nontender and No hepatosplenomegaly present Auscultation: normal bowel sounds General: Yes no CVA tenderness Back/Spine/Pelvis Back: no CVA tenderness Skin General skin exam: elasticity normal, turgor normal and dry skin Neuro General: patient oriented x3 Psych Appearance: grossly normal Mental Status: mental status grossly normal Results Reviewed Results Reviewed: Laboratory Tests 04/14/24 14:52 RBC 4.30 Hgb 10.9 L Hct 34.8 L MCV 80.9 Hemoglobin A1c % 7.5 H Iron 44 TIBC 271 Ferritin 183 AST 14 ALT 14 Alkaline Phosphatase 54 Assessment & Plan Assessment & Plan (1) GERD with esophagitis: Code(s): K21.00 - Gastro-esophageal reflux disease with esophagitis, without bleeding Category: Medical Qualifiers: Esophagitis bleeding: without hemorrhage Qualified Code(s): K21.00 - Gastro-esophageal reflux disease with esophagitis, without bleeding (2) GAVE (gastric antral vascular ectasia): Code(s): K31.819 - Angiodysplasia of stomach and duodenum without bleeding Category: Medical (3) Iron deficiency anemia: Comment[facility] Code(s): D50.9 - Iron deficiency anemia, unspecified Category: Medical Qualifiers: Iron deficiency anemia type: unspecified iron deficiency Qualified Code(s): D50.9 - Iron deficiency anemia, unspecified Plan Patient will continue omeprazole daily. Avoid dietary triggers and late night snacking. Patient will repeat CBC in 6 months. Continue following up with Hematology. Will send patient to do fit test, if Hemoccult positive will consider sending patient for upper endoscopy. Patient will follow-up in the office in 6 months, sooner on as needed basis. She is agreeable to this plan and verbalizes understanding of instructions. She was given the opportunity to ask questions and all questions answered. Thank you for allowing me to participate in her care Orders: Orders FITS Today Z87.19 - Personal history of other diseases of the digestive system Complete Blood Count no Diff 6 Months K21.9 - Gastro-esophageal reflux disease without esophagitis Medications: Refilled omeprazole 20 mg PO DAILY 90 caps 3RF K21.00 - Gastro-esophageal reflux disease with esophagitis, without bleeding Discontinued famotidine (Pepcid) Discontinued Reason: Doctor's Order 20 mg PO BEDTIME 90 tabs 3RF K21.9 - Gastro-esophageal reflux disease without esophagitis Coding Level of Care Code Est Pt Level 4 (96862) Diagnoses Gastroesophageal reflux disease with esophagitis without hemorrhage K21.00 Esophagitis bleeding: without hemorrhage GAVE (gastric antral vascular ectasia) K31.819 Iron deficiency anemia, unspecified iron deficiency anemia type D50.9 Iron deficiency anemia type: unspecified iron deficiency Time Spent (min) 35 Comment 20 minutes spent with patient and additional 15 minutes spent reviewing her records
== END 2024-04-20 10:19 | disposition home or self-care (01) ==
PROVIDERS: PCP Pediatrics; Visit Provider Nurse Practitioner Family
DX: K21.00 Gastro-esophageal reflux disease with esophagitis, without bleeding (principal); K31.819 Angiodysplasia of stomach and duodenum without bleeding; D50.9 Iron deficiency anemia, unspecified
CPT/HCPCS: 99214

== ENCOUNTER → 2024-04-20 09:34 | Outpatient (BNVA) | payer MEDICARE, SELFPAY | PROVIDERS: PCP Pediatrics; Visit Provider Nurse Practitioner Family | DX: K21.00 Gastro-esophageal reflux disease with esophagitis, without bleeding (principal); K31.819 Angiodysplasia of stomach and duodenum without bleeding; D50.9 Iron deficiency anemia, unspecified | CPT/HCPCS: 99212 ==

== ENCOUNTER 2024-05-04 10:09 | Outpatient (AMB) | payer MEDICARE, SELFPAY ==
--- NOTE | 2024-05-04 10:19 | A.OFFVIS_ITS ---
Intake Visit Reasons: Follow up [facility] 03/23/24 Intake Note: Patient presents for follow up US . States she gets bilateral leg pain and tightness when standing for more than an hour. Gets swelling occasionally in her ankles. Allergies No Known Allergies Allergy (Verified 05/04/24 10:21) [facility] Follow up [facility] 03/23/24: Details: Very pleasant 63-year-old [place] female presents for follow-up regarding venous insufficiency. She notes that she does have generalized swelling and discomfort of her lower extremities. 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 She does report occasional leg swelling. It does seem to be somewhat improved with compression stockings but now presents for routine follow-up with venous insufficiency testing. [facility] Medical History AC joint arthropathy GAVE (gastric antral vascular ectasia) Bilateral lower extremity edema Helicobacter pylori infection HTN (hypertension) Elevated cholesterol Diabetes mellitus Dysphagia Surgical History Hx of esophagogastroduodenoscopy Hx of colonoscopy History of cataract extraction Family History Mother HTN (hypertension) Cancer Father Paralysis Social History Household Members: Spouse and Family Housing: House Alcohol intake: current Alcohol intake frequency: does not drink Patient Tobacco Use Status: Never used Tobacco Current occupational status: unemployed Review of Systems Const All systems reviewed & are unremarkable except as noted in HPI and below Reports no additional complaints ENT Reports Normal hearing present Card Denies chest pain, Denies chest pain at rest, Denies chest pain with activity and Denies pedal edema Resp Denies cough GI Denies abdominal pain Musc Denies abnormal gait, Denies muscle cramps and Denies radiating pain into limb Skin/Breast Denies skin ulcer and Denies wounds Neuro Reports Normal hearing present and Denies abnormal gait Psych Reports no additional complaints Physical Exam Const General: cooperative, healthy appearing and comfortable Orientation/consciousness: oriented to person, oriented to place and oriented to time HEENT Head: Yes normal to inspection Neck Neck: Yes normal visual inspection Carotids: no bruits Chest Chest palpation & inspection: normal inspection of the chest Resp Effort & Inspection: normal respiratory effort and able to speak in complete sentences Auscultation: clear to auscultation bilaterally, no crackles, no rales, no rhonchi and no wheezes Cardio Rate: regular rate Rhythm: regular rhythm Heart sounds: S1 normal heart sound present and S2 normal heart sound present Bruits: no carotid bruits Peripheral pulses: Peripheral pulses 2+ throughout GI Inspection: Yes normal to inspection Skin Wounds: no wounds Hair: normal Neuro General: oriented to person, oriented to place and oriented to time Cranial nerves: Yes CN's II-XII intact bilaterally and Yes Normal hearing present Cognition (Neuro): normal cognition Motor exam (neuro): 5/5 motor strength present throughout Extrem Other: venous exam: +2 edema General: No clubbing, No cyanosis and No edema Psych Appearance: grossly normal Mental Status: mental status grossly normal Speech and movement: Normal speech and movement present Results Reviewed Results Reviewed: Brief summary of venous insufficiency testing is as follows: right great saphenous vein: Mildly positive at knee right small saphenous vein: negative right accessory vein: none present left great saphenous vein: negative left small saphenous vein: negative left accessory vein: none present Please note there is no evidence of any venous aneurysms or significant tortuosity Assessment & Plan Assessment & Plan (1) Varicose veins of right lower extremity with inflammation: Code(s): I83.11 - Varicose veins of right lower extremity with inflammation Category: Medical Plan: In short patient has minimal venous insufficiency. At the current time would recommend managing it as conservatively as possible. We did discuss routine conservative measures including compression, elevation, and exercise. Patient will follow up with us on an as-needed basis. Thank you for allowing us to assist in her care. If there are any questions or concerns please do not hesitate to contact us Coding Level of Care Code Est Pt Level 4 (38691) Diagnoses Varicose veins of right lower extremity with inflammation I83.11
== END 2024-05-04 10:43 | disposition home or self-care (01) ==
PROVIDERS: PCP Pediatrics; Visit Provider Surgery Vascular Surgery
DX: I83.11 Varicose veins of right lower extremity with inflammation (principal)
CPT/HCPCS: 99214

== ENCOUNTER → 2024-05-04 10:09 | Outpatient (BNVA) | payer MEDICARE, SELFPAY | PROVIDERS: PCP Pediatrics; Visit Provider Surgery Vascular Surgery | DX: I83.11 Varicose veins of right lower extremity with inflammation (principal); I83.811 Varicose veins of right lower extremity with pain; M79.662 Pain in left lower leg | CPT/HCPCS: 99212 ==

== ENCOUNTER 2024-07-27 10:11 | Outpatient (AMB) | payer MEDICARE, SELFPAY ==
[2024-07-27 10:17] VITALS: BP 130/76; PULSE 64; BMI 27.2
--- NOTE | 2024-07-27 10:17 | A.OFFVIS_ITS ---
Vital Signs 07/27/24 10:17 Height 5 ft 4 in Weight 158 lb 8.198 oz BMI 27.2 BP 130/76 Blood Pressure Location Lt brachial Position Sitting Pulse 64 Pulse Source Pulse Oximeter Intake Visit Reasons: CREST Intake Note: Patient last seen by Doctor Elijah Chau on 03/29/24. Presents today for Crest follow up.? Patient states she never got the cream that was prescribed to her from the last visit. Allergies No Known Allergies Allergy (Verified 07/27/24 10:19) Medication List - Last Reconciled 07/27/24 by Elijah Chau MD alcohol swabs (Alcohol Prep Pads) 1 pad topical DAILY PRN amlodipine 10 mg PO QAM aspirin 81 mg PO DAILY blood sugar diagnostic (FreeStyle Lite Strips) As directed cholecalciferol (vitamin D3) 50 mcg PO QAM docusate sodium (Colace) 100 mg PO BEDTIME dulaglutide (Trulicity) 0.75 mg subcut DAILY ferrous sulfate (FeroSul) 325 mg PO BID insulin glargine (Lantus Solostar U-100 Insulin) 42 units subcut BEDTIME lancets (TRUEplus Lancets) As directed lisinopril 40 mg PO QAM metformin 1,000 mg PO BID qrpqoyzy-wcv-[place]-lycopen-lutein 0.4 mg-300 mcg- 250 mcg (Cerovite Senior) 1 tab PO DAILY qypnqcqagvnh-cosj-lvbga acid 18-400 mg-mcg (Certavite-Antioxidant) 1 tab PO QAM mupirocin 2% 1 appl topical TID nitroglycerin 2% 0.5 inches transdermal DAILY omeprazole 20 mg PO DAILY pen needle, diabetic (Pentips Pen Needle) As directed polyethylene glycol 3350 (ClearLax) 17 grams PO DAILY simvastatin 10 mg PO BEDTIME HPI Comments Details: 63-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 She presents with her daughter. She states that she continues to have episodes of her fingers change color to blue and purple. These episodes happen if she goes out to gets stuff from the freezer which is in the garage. But overall much better than before. Has not had any digital ulcers. Denies any cough, shortness of breath Most recent history by Dr. 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 Her sister, the mdm sr from [facility], is on the phone adding additional history and translating for us. Mostly she was bothered during the winter time last year with severe Raynaud's symptoms. She eventually says she has healed up the fingertips. There is still some slight discomfort with pressure over the left 2nd fingertip in right 3rd fingertip. She remains on amlodipine 10 mg daily. I had prescribed some topical nitropaste but she did not seem to need it. She went to physical therapy because of right shoulder pain and that seems to be much less of a problem. She says the range of motion is considerably better. There is no exertional dyspnea or palpitations. She has no other joint pains or swelling, skin changes or dysphagia. She received some intravenous iron for iron deficien cy anemia that was seemingly precipitated by bleeding from GAVE. She had another upper endoscopy with some ablation procedures done in March. Lab work in April showed the hemoglobin to be back up to normal. She has not had any visible blood in the stool or melena. She remains on iron tablets but stays away from aspirin. 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) Bilateral lower extremity edema Helicobacter pylori infection HTN (hypertension) Elevated cholesterol Diabetes mellitus Dysphagia Surgical History Hx of esophagogastroduodenoscopy Hx of colonoscopy History of cataract extraction Family History Mother HTN (hypertension) Cancer Father Paralysis Social History Household Members: Spouse and Family Housing: House Alcohol intake: current Alcohol intake frequency: does not drink Patient Tobacco Use Status: Never used Tobacco Current occupational status: unemployed Review of Systems Const Denies weight gain and Denies weight loss Resp Reports no additional complaints Physical Exam Vital Signs: Last Vital Signs Pulse 64 07/27/24 10:17 BP 130/76 07/27/24 10:17 BMI result Body Mass Index 27.2 Const General: cooperative, healthy appearing and comfortable Nutritional Appearance: overweight Orientation/consciousness: patient oriented x3 Limitations: no limitations HEENT Head: Yes normocephalic and Yes atraumatic Mouth: moist mucous membranes Resp Effort & Inspection: normal respiratory effort and able to speak in complete sentences Auscultation: clear to auscultation bilaterally Cardio Rate: regular rate Rhythm: regular rhythm Heart sounds: Murmur heart sound present systolic GI Inspection: No distended Palpation (GI): Soft to palpation and nontender Skin General skin exam: no rashes or lesions noted Neuro General: patient oriented x3 Extrem Other: Mild puffiness of her fingers but no skin thickening No active synovitis Minimally cool and purplish discoloration of fingertips No tapering of her fingertips No open digital tip ulcers Significant periungual skin thickening Some peeling of the skin of the right index Few dilated loops and hemorrhages on nailfold capillaroscopy Assessment & Plan Assessment & Plan (1) CREST syndrome: Comment: dx 09/2022 (Raynaud's, digital tip ulcers, GAVE, abnormal nailfold capillaroscopy, anticentromere antibody) Her sister is Dr. 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 Her Raynaud's symptoms are overall well controlled. Discussed conservative management for Raynaud's such as avoiding cold exposure, keeping core and extremity temperature warmth. Using gloves, glove warmers. Continue with amlodipine 10 mg daily On omeprazole by GI Plan to repeat screening PFT/2D echo next summer Follow-up in 6 months (2) Raynauds phenomenon: Code(s): I73.00 - Raynaud's syndrome without gangrene Category: Medical Qualifiers: Raynaud?s-associated gangrene presence: without gangrene Qualified Code(s): I73.00 - Raynaud's syndrome without gangrene Plan: Symptoms well controlled as mentioned above Plan I spent 20 minutes reviewing patient's chart, evaluating patient, counseling p atient, and documenting in the chart Coding Level of Care Code Est Pt Level 4 (77887) Diagnoses CREST syndrome M34.1 Raynaud's phenomenon without gangrene I73.00 Raynaud?s-associated gangrene presence: without gangrene
== END 2024-07-27 10:45 | disposition home or self-care (01) ==
PROVIDERS: PCP Pediatrics; Visit Provider Student in an Organized Health Care Education/Training Program
DX: M34.1 CR(E)ST syndrome (principal); I73.00 Raynaud's syndrome without gangrene
CPT/HCPCS: 99214

== ENCOUNTER → 2024-07-27 10:11 | Outpatient (BNVA) | payer MEDICARE, SELFPAY | PROVIDERS: PCP Pediatrics; Visit Provider Student in an Organized Health Care Education/Training Program | DX: M34.1 CR(E)ST syndrome (principal); I73.00 Raynaud's syndrome without gangrene | CPT/HCPCS: 99212 ==

== ENCOUNTER 2024-12-02 09:29 | Outpatient (REF) | payer MEDICARE, SELFPAY ==
[2024-12-02 10:15] LABS: MANUAL DIFF FLAG NO
--- OUTSIDE RECORDS SUMMARY | 2024-12-02 10:22 | XMS_ITS | Encounter Summary ---
Author Organization [employer] Address [address] [place] [address] [address] [place] [address] Care Team Providers Care Senior Oracle Database Administrator Name Role Phone Jarod Santiago MD Primary Care Prov ider Tita Wade MD Primary Care Provider [phone] Encounter Details Date Type Department Care Team (Late st Contact Info) Description 03/04/2023 Orders Only [facility] [address] [place], [place] [phone] Danielle Recinos LPN Social History Tobacco Use Types Packs/Day Years Used Date Smoking Tobacco: Never Passive Smoke Exposure: Never Smokeless Tobacco: Never Alcohol Use Standard Drinks/Week Comments Never 0 (1 standard drink = 0.6 oz pur e alcohol) Depression Answer Date Recorded Patient Health Questionnaire-9 Score 0 01/16/2023 Depression Answer Date Recorded Patient Health Questionnaire-2 Score 0 01/16/2023 Comments Unknown Sex and Gender Information Value Date Recorded Sex Assigned at Female 06/03/2022 10:18 AM EDT Legal Sex Female 10:18 AM EDT Gender Identity Female 06/03/2022 10:18 AM EDT Sexual Orientation Straight 01/08/2023 9: 11 AM EDT documented as of this encounter Plan of Treatment Not on file documented as of this encounter Visit Diagnoses Not on filedocumented in this encounter Additional Health Concerns Assessment Noted Time PHQ-9 Depression Total Score: 0 01/17/20 9:22 AM EDT documented as of this encounter Care Teams Senior Oracle Database Administrator Relationship Specialty Start Date End Date PatelJarod Oneill MD [address] [place] [address] PCP - General Internal Medicine 06/13/23 10/30/23 Tita Wade MD [address] [place] [address] PCP - General Internal Medicine 10/31/23 documented as of this encounter
--- OUTSIDE RECORDS SUMMARY | 2024-12-02 10:22 | XMS_ITS | Encounter Summary ---
Author Organization [employer] Address [address] [facility] [address] [place] [address] Care Team Providers Care Civil Transportation Engineer Name Role Phone Tita Wade MD Primary Care Provider [phone] Reason for Visit * Reason Onset Date Comments Medication Question 04/07/2024 Encounter Details Date Type Department Care Team ([facility] st Contact Info) Description 04/07/2024 Telephone [facility] [address] [place], [place] [phone] Tita Wade MD [address] [place], [place] [phone] Medication Question Social History Tobacco Use Types Packs/Day Years Used Date Smoking Tobacco: Never Passive Smoke Exposure: Never Smokeless Tobacco: Never Alcohol Use Standard Drinks/Week Comments Never 0 (1 standard drink = 0.6 oz pur e alcohol) Depression Answer Date Recorded Patient Health Questionnaire-9 Score 0 01/16/2023 Housing Stability Answer Date Recorded What is your housing situation today? I have julio cesar smith 06/02/[address] you li ve. Do you have problems with any of the following? None of the above 06/02/2023 Food Insecurity Answer Date Recorded Within the past 12 months, y ou worried that your food would run out before you got money to buy more: Never True 06/02/2023 Within the past 12 months,th e food you bought just didn't last and you didn't have enough money to get more: Never True Transportation Answer Date Recorded In the past 12 months, has l ack of transportation kept you from medical appts, meetings, work or from getting things needed for daily living? No 06/02/2023 Utilities Answer Date Recorded In the past 12 months, has t he electric, gas, oil or water company threatened to shut off services in your home? No 06/02/2023 Depression Answer Date Recorded Patient Health Questionnaire-2 Score 0 01/16/2023 Comments Unknown Sex and Gender Information Value Date Recorded Sex Assigned at Female 06/03/2022 10:18 AM EDT Legal Sex Female 10:18 AM EDT Gender Identity Female 06/03/2022 10:18 AM EDT Sexual Orientation Straight 01/08/2023 9: 11 AM EDT documented as of this encounter Miscellaneous Notes * Telephone Encounter - Flower Carreno LPN - 04/07/2024 2:04 PM EDT Onetouch pended was previously covered by insurance. * Telephone Encounter - Kael Muse - 04/07/2024 12:04 PM EDT Tc from pharmacy calling in regards to Blood Glucose Monitoring Suppl (Blood Glucose Monitor System) w/Device kit would like to know the brand also for Continuous Glucose Monitor Sup misc and would need directions with it as well as the pen needle 31G x 8 mm misc documented in this encounter Plan of Treatment Not on file documented as of this encounter Visit Diagnoses Diagnosis Type 2 diabetes mellitus without complication, with long-term current use of insulin ([facility]) documented in this encounter Additional Health Concerns Assessment Noted Time PHQ-9 Depression Total Score: 0 01/17/20 23 9:22 AM EDT documented as of this encounter Care Teams Civil Transportation Engineer Relationship Specialty Start Date End Date Tita Wade MD [address] [place] [id number] PCP - General Internal Medicine 10/31/23 documented as of this encounter
--- OUTSIDE RECORDS SUMMARY | 2024-12-02 10:22 | XMS_ITS | Encounter Summary ---
Author Organization [employer] Address [address] [facility] [address] [place] [address] Care Team Providers Care Solutions Sales Consultant Name Role Phone Jarod Santiago MD Primary Care Prov ider Tita Wade MD Primary Care Provider [phone] Encounter Details Date Type Department Care Team (Late st Contact Info) Description 09/30/2022 Refill [facility] [address] [place] [address] Tita Wade MD [address], [place] [phone] Benign essential hypertension (Primary Dx) Social History Tobacco Use Types Packs/Day Years Used Date Smoking Tobacco: Never Passive Smoke Exposure: Never Smokeless Tobacco: Never Comments Unknown Sex and Gender Information Value Date Recorded Sex Assigned at Female 06/03/2022 10:18 AM EDT Legal Sex Female 10:18 AM EDT Gender Identity Female 06/03/2022 10:18 AM EDT Sexual Orientation Straight 01/08/2023 9: 11 AM EDT COVID-19 Exposure Response Date Recorded In the last 10 days, have yo u been in contact with someone who was confirmed or suspected to have Coronavirus/COVID-19? No / Unsure 09/11/2022 9:18 AM EST documented as of this encounter Miscellaneous Notes * Telephone Encounter - Octavio Patton PharmD - 10/01/2022 10:48 AM EST Patient has been switching CCB from amlodipine to nifedipine for Reynaud's, however now switched back to amlodipine. Pharmacist Yoly would like to know if patient should be on 10mg of amlodipine (previous dose) compared to 5mg dose that was recently sent in. Please clarify with pharmacy which dose pt should be on. documented in this encounter Plan of Treatment Not on file documented as of this encounter Visit Diagnoses Diagnosis Benign essential hypertension- Primary Essential hypertension, benign documented in this encounter Care Teams Solutions Sales Consultant Relationship Specialty Start Date End Date Jarod Santiago MD [address] [place] [address] PCP - General Internal Medicine 06/13/23 10/30/23 Tita Wade MD [address] [place] [address] PCP - General Internal Medicine 10/31/23 documented as of this encounter
--- OUTSIDE RECORDS SUMMARY | 2024-12-02 10:22 | XMS_ITS | Clinical Summary ---
Author Organization [employer] Address [address] [place] [address] 7[address] [place] [address] Care Team Providers Care Jacquard Loom Carpet Weaver Name Role Phone Tita Wade MD Primary Care Provider [phone] Allergies No known active allergies Medications ammonium lactate (Lac-Hydrin Five) 5 % lotion apply to both feet daily 05/12/20 18 Active capsaicin (Zostrix) 0.025 % cream Apply topically every 8 (eight) hours. 01/18/20 21 Active chlorhexidine (Periogard) 0.12 % solution place 1/2 oz in mouth swish for 30 seconds then spit out 2 times per day for 1 week 04/24/20 16 Active dextran 70-hypromellose (artificial tears) 0.1-0.3 % ophthalmic solution place 2 gtts in each eye daily 11/12/19 18 Active ibuprofen 600 MG tablet take 1 tablet (600MG) by oral route 3 times with food as needed 04/30/20 18 Active lidocaine (LMX) 4 % cream at bed time. 07/13/20 21 Active naphazoline-phe niramine (Naphcon-A) 0.025-0.3 % ophthalmic solution Inject 1 drop into the eye at bed time. 01/18/20 21 Active naproxen (Naprosyn) 500 MG tablet Take 1 tablet by mouth in the morning and 1 tablet in the evening. 10/24/19 18 Active Sod Fluoride-Potass ium Nitrate (PreviDent 5000 Enamel Protect) 1.1-5 % gel Use with tooth brush twice a day. Do not rinse after use. Do not eat or drink for 1 hour after use. 06/13/20 16 Active Multiple Vitamins-Minera ls (Centrum Silver 50+Women) tablet take 1 tablet by oral route every day in the morning with food 11/28/19 22 Active FeroSul 325 (65 Fe) MG tabletIndicatio ns:Iron deficiency anemia, unspecified iron deficiency anemia type TAKE ONE TABLET IN THE MORNING AND EVENING 60 tablet 09/17/19 24 Active Aspirin Adult Low Strength 81 MG EC tablet TAKE ONE TABLET EVERY MORNING 30 tablet 11 11/11/19 24 Active docusate sodium (Colace) 100 MG capsule TAKE ONE CAPSULE EVERY NIGHT AT BEDTIME 11/11/19 24 Active glucose blood (FREESTYLE LITE) test strip check bs by skin route 4-6 times every day 100 each 11/26/19 24 Active Alcohol Swabs 70 % pads check bs by skin route 4-6 ??times every day 200 each 11/28/19 24 Active Multiple Vitamins-Minera ls (CertaVite Senior/Antioxid ant) tablet TAKE ONE TABLET EVERY MORNING WITH FOOD 30 tablet 12/13/19 24 Active Continuous Glucose Monitor Sup miscIndications :Type 2 diabetes mellitus without complication, with long-term current use of insulin ([facility]) Check BS every 4 hours as needed 2 kit 04/07/20 24 Active insulin pen needle (TechLite Plus Pen Overgaard) 32G x 4 mm miscIndications :Type 2 diabetes mellitus without complication, with long-term current use of insulin ([facility]) Use as instructed 100 each 04/07/20 24 Active lisinopril 40 MG tablet Take 1 tablet (40 mg) by mouth in the morning. 90 tablet 1 07/07/20 24 Active cholecalciferol VITAMIN D (Vitamin D-3) 50 MCG (1999 UT) capsule Take 1 capsule (50 mcg) by mouth in the morning. 90 capsule 1 07/07/20 24 Active Alcohol Swabs (Alcohol Prep) 70 % pads USE TWO DAILY 100 each 1 08/20/19 25 Active amLODIPine (Norvasc) 10 MG tabletIndicatio ns:Benign essential hypertension TAKE 1 TABLET BY MOUTH EVERY MORNING 90 tablet 3 08/24/19 25 Active pen needle 31G x 8 mm miscIndications :Type 2 diabetes mellitus without complication, with long-term current use of insulin ([facility]) Use as instructed 100 each 08/24/19 25 026 Active insulin glargine (Lantus SoloStar) 100 UNIT/ML pen Inject 42 Units under the skin at bedtime. 15 mL 08/24/19 25 Active Dulaglutide 0.75 MG/0.5ML solution auto-injectorIn dications:Type 2 diabetes mellitus without complication, with long-term current use of insulin ([facility]) Inject 0.75 mg under the skin 1 (one) time per week. 2 mL 3 09/02/19 25 Active Blood Glucose Monitoring Suppl (Blood Glucose Monitor System) w/Device kitIndications: Type 2 diabetes mellitus without complication, with long-term current use of insulin ([facility]) Check BS every 4 hours as needed 1 kit 09/02/19 25 Active OneTouch Delica Lancets 33G misc check bs by skin route 4-6 ??times every day 200 each 09/08/19 25 Active glucose blood (OneTouch Ultra) test strip Check blood sugars tid 100 each 09/08/19 25 Active simvastatin (Zocor) 10 MG tablet TAKE 1 TABLET BY MOUTH IN THE EVENING 100 tablet 2 09/09/19 25 Active glucose blood (OneTouch Verio) test strip 1 each by Other route 4 times daily. 360 each 3 09/10/19 25 026 Active Lancets (OneTouch Delica) lancets 30G 1 each by Other route 4 times daily. 120 each 09/10/19 25 026 Active metFORMIN (Glucophage) 1000 MG tablet TAKE 1 TABLET BY MOUTH IN THE MORNING AND EVENING WITH MEALS 200 tablet 2 11/04/19 25 Active lisinopril 40 MG tablet TAKE ONE TABLET BY MOUTH EVERY DAY 30 tablet 11/24/19 25 Active omeprazole (PriLOSEC) [address] capsule Take 20 mg by mouth in the morning. 10/20/19 24 025 Discontinued(T herapy completed) metFORMIN (Glucophage) 1000 MG tablet TAKE 1 TABLET IN THE MORNING AND EVENING WITH MEALS 180 tablet 1 08/26/19 25 025 Discontinued lisinopril 40 MG tablet Take 1 tablet (40 mg) by mouth Once per day. 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 Benign essential hypertension 11/08/2015 Assessment & Plan (07/17/2023 1:08 PM EST): Patient refers at home results are below 140/90, she took her medications this morning but is anxious, told to keep a bp log and bring it for next appointment, decrease sodium in diet Hypercholesterolemia 01/30/2012 Diabetes mellitus type 2, uncomplicated 01/30/20 12 Assessment & Plan (07/17/2023 5:33 PM EST): Patient denied episode of hypoglycemia, did not wanted to get blood taken today, pending A1c, she is on lantus/trulicity/metformin, continue current treatment, new lab workup will be ordered Eye exam scheduled for december Foot exam was remarkable for mild tinea pedis Encounters Date Type Department Care Team Description 12/01/2024 11:30 AM EDT Office Visit [facility] [address] [place] [address] Tita Wade MD CREST syndrome (CMS/HCC) (Primary Dx); Benign essential hypertension; Type 2 diabetes mellitus without complication, with long-term current use of insulin (CMS/HCC); Raynaud's phenomenon without gangrene; Osteopenia, unspecified location; Neuropathy 12/01/2024 Travel 11/19/2024 Refill [facility] [address] [place] [address] Flower Duvall DO 11/03/2024 Refill [facility] [address] [place] [address] Tita Wade MD 10/22/2024 Telephone [facility] [address] [place] [phone] Flower Duvall DO [employer] PHONE TRIAGE 09/27/2024 3:40 PM EST Office Visit [facility] [address] [place] [address] Jazmin Charles MD Palpable purpura ([facility]) (Primary Dx); Type 2 diabetes mellitus without complication, with long-term current use of insulin ([facility]) 09/27/2024 Travel 09/27/2024 Telephone [facility] [address] [place] [address] Li Finch RN 09/08/2024 Refill [facility] [address] [place] [address] Tita Wade MD 09/08/2024 Orders Only [facility] [address] [place] [id number] Tita Wade MD 09/08/2024 Telephone [facility] [address], [place] [id number] Tita Wade MD Medication Question from Last 3 Months Immunizations Name Administration Dates Next Due Influenza Injectable Quadriv alant Preservative Free IIV4 MDCK 06/03/2022,05/10/2020 Influenza injectable quadriv alent IIV4 with preservative 06/17/2019,05/01/2017,05/08/2016 Influenza injectable quadriv alent preservative free 05/10/2021,05/16/2015 Influenza, IIV3, injectable 05/06/2014 Influenza, Split (incl. edward fied surface antigen) 04/14/2013,04/27/2012 Meningococcal MCV4P ACYW-135 01/30/2017 Pneumococcal Polysaccharide PPSV23 04/14/2013, Td (adult), unspecified 02/11/2005 Tdap 10/05/2015 Social History Tobacco Use Types Packs/Day Years Used Date Smoking Tobacco: Never Passive Smoke Exposure: Never Smokeless Tobacco: Never Tobacco Cessation:Counseling Given: Not Answered Alcohol Use Standard Drinks/Week Comments Never 0 [...] Orientation Straight 01/08/2023 9: 11 AM EDT Last Filed Vital Signs Vital Sign Reading Time Taken Comments Blood Pressure 112/60 12/01/2024 11:36 AM EDT Pulse 76 12/01/2024 11:36 AM EDT Temperature 36.6 ??C (97.9 ??F) 12/01/2024 11:36 AM E DT Respiratory Rate 16 12/01/2024 11:36 AM EDT Oxygen Saturation 98% 01/27/2024 10:03 AM EDT Inhaled Oxygen Concentration - - Weight 69.4 kg (153 lb) 12/01/2024 11:36 AM EDT Height 160 cm (5' 3 ) 12/01/2024 11:36 AM EDT Body Mass Index 27.1 12/01/2024 11:36 AM EDT Plan of Treatment Health Maintenance Due Date Last Done Comments CT Colonography 1960 FIT DNA/Cologuard 1958 FIT 1958 FOBT 1960 Sigmoidoscopy 1960 Eye Exam 1968 Alcohol/Substance Use Screening 1970 Hepatitis C Screening 1976 Zoster Vaccines (1 of 2) 2008 Pneumococcal Vaccine: 50+ Years (2 of 2 - PCV) 04/14/2014 04/14/2013, 05/25/2002 RSV Patients and Patients Aged 60 years or older (1 - Risk 60-74 years 1-dose series) 2018 Dental X-Ray: Full Mouth 06/02/2021 018, 09/14/2013, 07/05/2008 Dental Oral Exam 07/11/2023 01/08/2023, 04/2022, 05/04/2021, Additional history exists Dental Prophylaxis 07/11/2023 01/08/2023, 0 01/10/2022, 05/04/2021, Additional history exists Dental X-Ray: Bitewings 01/10/2024 01/09/20 23, 01/10/2022, 10/09/2020, Additional history exists Depression Screening 01/17/2024 01/16/2023, 01/17/20 23 SDOH Screening 01/17/2024 01/16/2023 COVID-19 Vaccine ( season) 2024 08/16/2021, 10/01/2020, 09/11/2020 Influenza Vaccine (#1) 2024 , 05/10/2021, 05/10/2020, Additional history exists Lipid Panel 10/01/2024 10/01/2023, 05/05, 10/04/2020 Diabetes: Hemoglobin A1C 12/25/2024 025, 04/14/2024, 01/27/2024, Additional history exists Diabetes: Urine Protein Screening 04/07/2025 04/07/2024, 09/17/2022, 05/30/2021, Additional history exists Diabetes: Foot Exam 09/27/2025 09/27/2024, 09/27/2024, 07/17/2023, Additional history exists DTaP/Tdap/Td Vaccines (2 - Td or Tdap) 10/04/2025 10/05/2015, 02/11/2005 Tobacco Screening 12/01/2025 12/01/2024 Mammogram 12/22/2025 12/23/2023, 01/02, 01/11/2021, Additional history exists Colonoscopy 11/01/2027 Colorectal Cancer Screening 11/01/2027 Meningococcal Vaccine Aged Out 01/30/2017 No jermain marco a eligible based on patient's age to complete this topic Cervical Cancer Screening Discontinued HPV/Cotest Discontinued 09/04/2021 Pap Smear Discontinued 09/04/2021 HIB Vaccines Aged Out No longer eligi ble based on patient's age to complete this topic HPV Vaccines Aged Out No longer eligi ble based on patient's age to complete this topic Hepatitis A Vaccines Aged Out No long er eligible based on patient's age to complete this topic Hepatitis B Vaccines Aged Out No long er eligible based on patient's age to complete this topic IPV Vaccines Aged Out No longer eligi ble based on patient's age to complete this topic RSV under 20 months Aged Out No longe r eligible based on patient's age to complete this topic Rotavirus Vaccines Aged Out No longer eligible based on patient's age to complete this topic Procedures Procedure Name Priority Date/Time Associated Diagnosis Comments POCT GLUCOSE Routine 12/01/2024 11:54 AM EDT Type 2 diabetes mellitus without complication, with long-term current use of insulin ([facility]) POCT GLYCATED HEMOGLOBIN, TOTAL Routine 09/27/2024 3:59 PM EST Type 2 diabetes mellitus without complication, with long-term current use of insulin (CMS/[facility]) POCT GLUCOSE Routine 09/27/2024 3:58 PM EST Type 2 diabetes mellitus without complication, with long-term current use of insulin (CMS/[facility]) ALBUMIN, RANDOM URINE W/CREATININE Routine 04/07/2024 11:52 AM EDT Type 2 diabetes mellitus without complication, with long-term current use of insulin (CMS/[facility]) BI MAMMOGRAM SCREENING TOMOSYNTHESIS BILATERAL Routine 12/23/2023 10:18 AM EDT Breast cancer screening by mammogram LIPID PANEL, STANDARD Routine 10/01/2023 11:43 AM EST Type 2 diabetes mellitus with hyperglycemia, with long-term current use of insulin ([facility]) PERIODIC ORAL EVALUATION - ESTABLISHED PATIENT Routine 01/08/2023 10:00 AM EDT PROPHYLAXIS - ADULT Routine 01/08/2023 9 :00 AM EDT BITEWINGS - 4 RADIOGRAPHIC IMAGES Routine 01/08/2023 9:00 AM EDT THINPREP IMAGING PAP AND HPV MRNA E6/E7 WITH REFLEX TO HPV 16,18/45 Routine 09/04/2021 9:22 AM EST INTRAORAL - COMPLETE SERIES OF RADIOGRAPHIC IMAGES Routine 06/01/2018 12:00 AM EDT from Last 3 Months or Most Recently Relevant to Health Maintenance Results * POCT Glucose (12/01/2024 11:54 AM EDT) Only the most recent of2 resultswithin the time period is included. Glucose Blood, POC 137 60 - 200 mg/dL QC Media Lot # [id number] Lot# Expiration Date Blood Capillary blood specimen / Unknown 12/01/2024 11:54 AM EDT Tita Wade MD POINT OF CARE TEST ENTER/EDIT ORDERABLES Edited Result - Final * (ABNORMAL) POCT A1C (09/27/2024 3:59 PM EST) Hemoglobin A1C 8.2(A) 4.0 - 6.0 % QC Media Lot # Comment:[id number] Lot# Expiration Date Comment:05/21/2026 Blood 09/27/2024 3:59 PM EST Jazmin Charles MD POINT OF CARE TEST ENTER/EDIT ORDERABLES Final Result * Albumin, Random Urine W/Creatinine (04/07/2024 11:52 AM EDT) Creatinine, Urine 177.76 mg/dL [facility] Microalbumin Urine 8.0 mg/L [facility] Microalbum Creatinine Ratio Ur 4.5 <30 ug/mg cr [facility] Comment:Albumin/Creatinine R atio Reference Ranges: Normal: < 30 ug/mg creatinine Microalbuminuria: 30 - 300 ug/mg creatinineClinical Albuminuria: > 300 ug/mg creatinine Urine (Urine, Random) 04/07/2024 11:52 AM EDT 04/07/2024 2:20 PM EDT us Tita Wade MD LAB URINE ORDERABLES Final Re sult [facility] [address] [place] [address] [phone] * BI Mammogram Screening Tomosynthesis Bilateral (12/23/2023 10:18 AM EDT) Anatomical Region Laterality Modality Breast Bilateral Mammography 12/23/2023 10:1 8 AM EDT Narrative 01/23/2024 7:06 AM EDT ? [facility] [place] ? [address] ?[place] [address] ? Mammography Report ? Signed ? Patient: Everardo,Kalsoom ?MR#: [id number] ?? 03 ? : 1960 ?Acct:[id number] ? Age/Sex: 63 / F ?ADM Date: 05/21/24 ? Loc: HO.MAMMO ? Attending Dr: Tita Wade MD ? Ordering Physician: Tita Wade MD ?Results: 1Ne ?? gative ? Date of Service: 12/23/23 ?Follow Up: 1 Year From Orig ?? inal Mammogram ? Procedure(s): MM tomosynthesis screening BI ?? Accession Number(s): [id number] ? cc: Tita Wade MD ? EXAMINATION: ?? MM SCREENING DIGITAL BREAST TOMOSYNTHESIS, BILATERAL ? CLINICAL INFORMATION: ? Screening. Asymptomatic. ? COMPARISON: ?? Mammography: This study is compared with prior exams dating back to ? TECHNIQUE: ?? Digital breast tomosynthesis is performed in both the craniocaudal and ?? mediolateral oblique views along with computer-aided detection (CAD). ?? Synthesized 2D images are generated from the tomosynthesis. ? FINDINGS: ?? There are scattered areas of fibroglandular density (ACR BI-RADS breast ?? composition Category b). ? There are no significant masses, abnormal calcifications, or other ?? abnormalities. ? MM/MM tomosynthesis screening BI ?? IMPRESSION: ?? No mammographic evidence of malignancy. ? ASSESSMENT: ? BI-RADS BI-RADS 1 - Negative ? RECOMMENDATION: ?? Routine annual mammography screening. ? 1 year F/U ? This examination should not preclude the clinical evaluation of a ?? suspicious palpable abnormality. ? This patient's information was entered into a reminder system with a ?? target due date for their next mammogram. ? Dictated By: ?Berta Lopez MD ? Signed By: ?<Electronically signed by Berta Lopez MD in OV> ? 01/23/24 0703 ? DD/ 1018 ? TD/TT: ? Outbound Sales Consultant: ? Procedure Note Donotuseinterpreter, Image - 01/23/2024 [facility] [address] [place] [address] Mammography Report Signed Patient: Brandon McgeeMR#: [id number] 03 : 9Acct:[id number] Age/Sex: 63 / FADM Date: 12/23/23 Loc: HO.MAMMO Attending Dr: Tita Wade MD Ordering Physician: Tita Wade MDResults: 1Ne gative Date of Service: 12/23/23Follow Up: 1 Year From Orig ina Mammogram Procedure(s): MM tomosynthesis screening BI Accession Number(s): [id number] cc: Tita Wade MD EXAMINATION: MM SCREENING DIGITAL BREAST TOMOSYNTHESIS, BILATERAL CLINICAL INFORMATION: Screening. Asymptomatic. COMPARISON: Mammography: This study is compared with prior exams dating back to TECHNIQUE: Digital breast tomosynthesis is performed in both the craniocaudal and mediolateral oblique views along with computer-aided detection (CAD). Synthesized 2D images are generated from the tomosynthesis. FINDINGS: There are scattered areas of fibroglandular density (ACR BI-RADS breast composition Category b). There are no significant masses, abnormal calcifications, or other abnormalities. MM/MM tomosynthesis screening BI IMPRESSION: No mammographic evidence of malignancy. ASSESSMENT: BI-RADS BI-RADS 1 - Negative RECOMMENDATION: Routine annual mammography screening. 1 year F/U This examination should not preclude the clinical evaluation of a suspicious palpable abnormality. This patient's information was entered into a reminder system with a target due date for their next mammogram. Dictated By: Berta Lopez MD Signed By: <Electronically signed by Berta Lopez MD in OV> 01/23/24 0703 DD/ 1018 TD/TT: Outbound Sales Consultant: us Tita Wade MD IMG BI PROCEDURES Final Resul t * (ABNORMAL) Lipid Panel, Standard (10/01/2023 11:43 AM EST) Triglycerides 238(H) <150 mg/dL [facility] Comment:Desirable Triglyceri de: less than 150 mg/dLBorderline High Triglyceride 150-199 mg/dLHigh Triglyceride: 200-499 mg/dLVery High Triglyceride: greater than or equal to 5OO mg/dL Cholesterol 181 <200 mg/dL [facility] Comment:Desirable Cholestero l: less than 200 mg/dLBorderline High Cholesterol: 200-239 mg/dLHigh Cholesterol: greater than 239 mg/dL LDL Cholesterol Calculated 89 <100 mg/dL [facility] Comment:Desirable LDL: less than 100 mg/dLNear Optimal/Above Optimal LDL: 110- 129 mg/dLBorderline High LDL: 130-159 mg/dLHigh LDL: 160-189 mg/dLVery High LDL: greater than or equal to 190 mg/dL HDL Cholesterol 45 >40 mg/dL [facility] Comment:Desirable HDL: grea ter than 40 mg/dL Note: This HDL assay may give artificially low results in patients with liver disease. Blood Venous blood specimen / Unknown 10/01/2023 11:43 AM EST 10/01/2023 2:41 PM EST Jarod Reinoso MD LAB BLOOD ORDERABL ES Final Result [facility] [address] [place] [phone] * THINPREP TIS PAP AND HPV mRNA E6/E7 WITH REFLEX TO HPV 16,18/45 (09/04/2021 9:22 AM EST) Clinical Information: None given [employer] [facility] COMMENT SEE COMMENT [facility] Comment: EXPLANATORY NOTE: ? The Pap is a screening test for cervical cancer. It is ?? not a diagnostic test and is subject to false negative ?? and false positive results. It is most reliable when a ?? satisfactory sample, regularly obtained, is submitted ?? with relevant clinical findings and history, and when ?? the Pap result is evaluated along with historic and ?? current clinical information. ?? COMMENT: This Pap test has been evaluated with computer assisted technology. [facility] [employer] Engineering Geologist: SEE COMMENT [facility] Comment: CMG, CT(ASCP) CT screening location: [address] ??[address] HPV nRNA E6/E7 Not Detected Not Detected [facility] Comment: Methodology: Rn Spine-Mediated Amplification This assay detects E6/E7 viral messenger RNA (mRNA) from 14 high-risk HPV types (16,18,31,33,35,39,45,51,52,56,58,59,66,68). ? The analytical performance characteristics of this assay have been determined by [employer]. The modifications have not been cleared or approved by the FDA. This assay has been validated pursuant to the CLIA regulations and is used for clinical purposes. ?? For additional information, please refer to http://education.Comedy.com/faq/HLJ674p7 (This link if provided for information/ educational purposes only.) Interpretation/Re sult: Negative for intraepithelial lesion or malignancy. [employer] [facility] LMP: [id number] [facility] Prev. BX: NONE GIVEN [facility] Prev. PAP: NIL 11/19 [facility] SOURCE: None given [facility] Statement Of Adequacy: [facility]MENT [facility] Comment: Satisfactory for evaluation. Endocervical/transformation zone component present. 09/04/2021 9:22 AM EST us Crissy Wayne CNM LAB PATHOLOGY ORDERABLES Final Result [facility] [address] from Last 3 Months or Most Recently Relevant to Health Maintenance [place] [address] [place] [address] MEDICARE ADVANTAGE HMO [facility] Care Teams Jacquard Loom Carpet Weaver Relationship Specialty Start Date End Date Tita Wade MD [address] [place], [place] [address] [address] PCP - General Internal Medicine 10/31/23
--- OUTSIDE RECORDS SUMMARY | 2024-12-02 10:22 | XMS_ITS | Encounter Summary ---
Author Organization [employer] Address [address] [place] [address] 7 [place] [address] Care Team Providers Care Mail Carrier And Clerk Name Role Phone Tita Wade MD Primary Care Provider [phone] Encounter Details Date Type Department Care Team ([facility] st Contact Info) Description 12/01/2024 11:30 AM EDT Office Visit [facility] [address], [place] [phone] Tita Wade MD [address], [place] [phone] CREST syndrome (CMS/HCC) (Primary Dx); Benign essential hypertension; Type 2 diabetes mellitus without complication, with long-term current use of insulin (CMS/HCC); Raynaud's phenomenon without gangrene; Osteopenia, unspecified location; Neuropathy Social History Tobacco Use Types Packs/Day Years [...] the past 12 months, has t he [employer] gas, oil or water [employer] threatened to shut off services in your home? No 06/02/2023 Depression Answer Date Recorded Patient Health Questionnaire-2 Score 0 01/16/2023 Comments Unknown Sex and Gender Information Value Date Recorded Sex Assigned at Female 06/03/2022 10:18 AM EDT Legal Sex Female 10:18 AM EDT Gender Identity Female 06/03/2022 10:18 AM EDT Sexual Orientation Straight 01/08/2023 9: 11 AM EDT documented as of this encounter Last Filed Vital Signs Vital Sign Reading Time Taken Comments Blood Pressure 112/60 12/01/2024 11:36 AM EDT Pulse 76 12/01/2024 11:36 AM EDT Temperature 36.6 ??C (97.9 ??F) 12/01/2024 11:36 AM E DT Respiratory Rate 16 12/01/2024 11:36 AM EDT Oxygen Saturation - - Inhaled Oxygen Concentration - - Weight 69.4 kg (153 lb) 12/01/2024 11:36 AM EDT Height 160 cm (5' 3 ) 12/01/2024 11:36 AM EDT Body Mass Index 27.1 12/01/2024 11:36 AM EDT documented in this encounter Progress Notes * Tita Wade MD - 12/01/2024 11:30 AM EDT Subjective Patient ID: Brandon Mcgee is a 64 y.o. female who presents for f/u. Brandon is a 64-year-old female patient of mine with type 2 diabetes, crest syndrome like disease, Raynaud's phenomenon, hypertension, dyslipidemia etc.Her bunions are giving her a little bit of painthat is tolerable r follow-up, feels overall well. States she up-to-date with her eye exam and dental care as well as foot exam. Diabetes She presents for her follow-up diabetic visit. She has type 2 diabetes mellitus. Pertinent negatives for hypoglycemia include no dizziness, headaches or nervousness/anxiousness. Pertinent negatives for diabetes include no chest pain, no polydipsia and no polyuria. Review of Systems Constitutional: Negative for activity change, chills, fever and unexpected weight change. Respiratory: Negative for cough, shortness of breath and wheezing. Cardiovascular: Negative for chest pain, palpitations and leg swelling. Gastrointestinal: Negative for abdominal pain, blood in stool and constipation. Endocrine: Negative for polydipsia and polyuria. Genitourinary: Negative for decreased urine volume, difficulty urinating, dysuria, hematuria, vaginal bleeding and vaginal discharge. Musculoskeletal: Positive for arthralgias. Negative for gait problem. Skin: Negative for color change and rash. Neurological: Negative for dizziness and headaches. Hematological: Negative for adenopathy. Psychiatric/Behavioral: Negative for dysphoric mood, hallucinations, sleep disturbance and suicidalideas. The patient is not nervous/anxious. Objective BP 112/60 (BP Location: Left arm, Patient Position: Sitting, BP Cuff Size: Adult) Pulse76 Temp 97.9 ??F (36.6 ??C) (Oral) Resp 16 Ht 5' 3 (1.6 m) Wt 153 lb (69.4 kg) BMI 27.10kg/m?? Physical Exam Constitutional: General: She is not in acute distress. Appearance: Normal appearance. She is not ill-appearing. HENT: Head: Normocephalic. Right Ear: Tympanic membrane and ear canal normal. Left Ear: Tympanic membrane and ear canal normal. Nose: Nose normal. Mouth/Throat: Mouth: Mucous membranes are moist. Pharynx: No oropharyngeal exudate or posterior oropharyngeal erythema. Eyes: Extraocular Movements: Extraocular movements intact. Conjunctiva/sclera: Conjunctivae normal. Pupils: Pupils are equal, round, and reactive to light. Cardiovascular: Rate and Rhythm: Normal rate and regular rhythm. Pulses: Normal pulses. Heart sounds: Normal heart sounds. Pulmonary: Effort: Pulmonary effort is normal. No respiratory distress. Breath sounds: Normal breath sounds. Abdominal: Palpations: Abdomen is soft. Musculoskeletal: General: No swelling. Normal range of motion. Cervical back: Normal range of motion. Right lower leg: No edema. Left lower leg: No edema. Skin: General: Skin is warm. Capillary Refill: Capillary refill takes less than 2 seconds. Neurological: General: No focal deficit present. Mental Status: She is alert and oriented to person, place, and time. Psychiatric: Mood and Affect: Mood normal. Behavior: Behavior normal. Thought Content: Thought content normal. Judgment: Judgment normal. Assessment/Plan Diagnoses and all orders for this visit: CREST syndrome (CMS/HCC) Comments: Patient was seen in July of last year by rheum and has a follow-up coming up at [facility]. Uses gloves and socks when weather changes. No current skin lesions. Orders: - Albumin, Random Urine W/Creatinine; Future - Lipid Panel, Standard; Future - CBC auto differential; Future - C-reactive Protein; Future - Creatine Kinase, Total; Future - Hemoglobin A1c; Future - Hepatic Function Panel; Future - Vitamin D, 25-Hydroxy, Total, Immunoassay; Future - TSH W/Reflex to FT4; Future - Urinalysis with reflex microscopic; Future - Sed Rate by Modified Westergren; Future - Vitamin B12/Folate, Serum Panel; Future - Vitamin B1; Future - Vitamin B6; Future - Uric acid; Future Benign essential hypertension Comments: BP stable on current medication and low-salt diet. Patient had decreased carbs and sugars in diet alot which has stabilized her weight. Patient congratulated Orders: - Albumin, Random Urine W/Creatinine; Future - Lipid Panel, Standard; Future - CBC auto differential; Future - C-reactive Protein; Future - Creatine Kinase, Total; Future - Hemoglobin A1c; Future - Hepatic Function Panel; Future - Vitamin D, 25-Hydroxy, Total, Immunoassay; Future - TSH W/Reflex to FT4; Future - Urinalysis with reflex microscopic; Future - Sed Rate by Modified Westergren; Future Type 2 diabetes mellitus without complication, with long-term current use of insulin ([facility]) Due for all labs to be drawn fasting. These were ordered for patient today. Plans to come in tomorrow morning. Call with results when available. Return to clinic in 2 months with me. Seems like her sugars are better controlled now that her diabetes is less carb content. Continue current meds at current dose no changes until labs reviewed. Random blood sugar was 136 today. Foot exam was benign. Sees ophthalmology and podiatry. - Albumin, Random Urine W/Creatinine; Future - Lipid Panel, Standard; Future - CBC auto differential; Future - C-reactive Protein; Future - Creatine Kinase, Total; Future - Hemoglobin A1c; Future - Hepatic Function Panel; Future - Vitamin D, 25-Hydroxy, Total, Immunoassay; Future - TSH W/Reflex to FT4; Future - Urinalysis with reflex microscopic; Future - Sed Rate by Modified Westergren; Future - POCT Glucose Raynaud's phenomenon without gangrene - Albumin, Random Urine W/Creatinine; Future - Lipid Panel, Standard; Future - CBC auto differential; Future - C-reactive Protein; Future - Creatine Kinase, Total; Future - Hemoglobin A1c; Future - Hepatic Function Panel; Future - Vitamin D, 25-Hydroxy, Total, Immunoassay; Future - TSH W/Reflex to FT4; Future - Urinalysis with reflex microscopic; Future - Sed Rate by Modified Westergren; Future Osteopenia, unspecified location Comments: Check vitamin D level. Replace again if needed. DEXA scan is up-to-date from 2023 as well as mammogram. Not a smoker. Orders: - Albumin, Random Urine W/Creatinine; Future - Lipid Panel, Standard; Future - CBC auto differential; Future - C-reactive Protein; Future - Creatine Kinase, Total; Future - Hemoglobin A1c; Future - Hepatic Function Panel; Future - Vitamin D, 25-Hydroxy, Total, Immunoassay; Future - TSH W/Reflex to FT4; Future - Urinalysis with reflex microscopic; Future - Sed Rate by Modified Westergren; Future Neuropathy Comments: Recheck vitamin B12 levels as well as folate CBC TFTs etc.. Could be from diabetic neuropathy but less likely. Treat underlying cause if found. Orders: - Vitamin B12/Folate, Serum Panel; Future - Vitamin B1; Future - Vitamin B6; Future - Uric acid; Future documented in this encounter Plan of Treatment Scheduled Orders Name Type Priority Associated Diagnoses Orde r Schedule Albumin, Random Urine W/Creatinine Lab Routine CREST syndrome (CMS/HCC) Benign essential hypertension Type 2 diabetes mellitus without complication, with long-term current use of insulin (CMS/HCC) Raynaud's phenomenon without gangrene Osteopenia, unspecified location Expected: 12/01/2024 (Approximate), Expires: 12/01/2025 Lipid Panel, Standard Lab Routine CREST syndrome (CMS/HCC) Benign essential hypertension Type 2 diabetes mellitus without complication, with long-term current use of insulin (CMS/HCC) Raynaud's phenomenon without gangrene Osteopenia, unspecified location Expected: 12/01/2024 (Approximate), Expires: 12/01/2025 CBC auto differential Lab Routine CREST syndrome (CMS/HCC) Benign essential hypertension Type 2 diabetes mellitus without complication, with long-term current use of insulin (CMS/HCC) Raynaud's phenomenon without gangrene Osteopenia, unspecified location Expected: 12/01/2024 (Approximate), Expires: 12/01/2025 C-reactive Protein Lab Routine CREST syndrome (CMS/HCC) Benign essential hypertension Type 2 diabetes mellitus without complication, with long-term current use of insulin (CMS/HCC) Raynaud's phenomenon without gangrene Osteopenia, unspecified location Expected: 12/01/2024 (Approximate), Expires: 12/01/2025 Creatine Kinase, Total Lab Routine CREST syndrome (CMS/HCC) Benign essential hypertension Type 2 diabetes mellitus without complication, with long-term current use of insulin (CMS/HCC) Raynaud's phenomenon without gangrene Osteopenia, unspecified location Expected: 12/01/2024, Expires: 12/01/2025 Hemoglobin A1c Lab Routine CREST syndrome (CMS/HCC) Benign essential hypertension Type 2 diabetes mellitus without complication, with long-term current use of insulin (CMS/HCC) Raynaud's phenomenon without gangrene Osteopenia, unspecified location Expected: 12/01/2024 (Approximate), Expires: 12/01/2025 Hepatic Function Panel Lab Routine CREST syndrome (CMS/HCC) Benign essential hypertension Type 2 diabetes mellitus without complication, with long-term current use of insulin (CMS/HCC) Raynaud's phenomenon without gangrene Osteopenia, unspecified location Expected: 12/01/2024 (Approximate), Expires: 12/01/2025 Vitamin D, 25-Hydroxy, Total, Immunoassay Lab Routine CREST syndrome (CMS/HCC) Benign essential hypertension Type 2 diabetes mellitus without complication, with long-term current use of insulin (CMS/HCC) Raynaud's phenomenon without gangrene Osteopenia, unspecified location Expected: 12/01/2024 (Approximate), Expires: 12/01/2025 TSH W/Reflex to FT4 Lab Routine CREST syndrome (CMS/HCC) Benign essential hypertension Type 2 diabetes mellitus without complication, with long-term current use of insulin (CMS/HCC) Raynaud's phenomenon without gangrene Osteopenia, unspecified location Expected: 12/01/2024 (Approximate), Expires: 12/01/2025 Urinalysis with reflex microscopic Lab Routine CREST syndrome (CMS/HCC) Benign essential hypertension Type 2 diabetes mellitus without complication, with long-term current use of insulin (CMS/HCC) Raynaud's phenomenon without gangrene Osteopenia, unspecified location Expected: 12/01/2024, Expires: 12/01/2025 Sed Rate by Modified Westergren Lab Routine CREST syndrome ([facility]/HCC) Benign essential hypertension Type 2 diabetes mellitus without complication, with long-term current use of insulin ([facility]/HCC) Raynaud's phenomenon without gangrene Osteopenia, unspecified location Expected: 12/01/2024, Expires: 12/01/2025 Vitamin B12/Folate, Serum Panel Lab Routine CREST syndrome ([facility]/HCC) Neuropathy Expected: 12/01/2024, Expires: 12/01/2025 Vitamin B1 Lab Routine CREST syndrome ([facility]/HCC) Neuropathy Expected: 12/01/2024 (Approximate), Expires: 12/01/2025 Vitamin B6 Lab Routine CREST syndrome ([facility]/HCC) Neuropathy Expected: 12/01/2024, Expires: 12/01/2025 Uric acid Lab Routine CREST syndrome ([facility]/HCC) Neuropathy Expected: 12/01/2024 (Approximate), Expires: 12/01/2025 documented as of this encounter Procedures Procedure Name Priority Date/Time Associated Diagnosis Comments POCT GLUCOSE Routine 12/01/2024 11:54 AM EDT Type 2 diabetes mellitus without complication, with long-term current use of insulin ([facility]/HCC) documented in this encounter Results * POCT Glucose (12/01/2024 11:54 AM EDT) [facility] Glucose Blood, POC 137 60 - 200 mg/dL QC Media Lot # [id number] Lot# Expiration Date 801 Blood Capillary blood specimen / Unknown 12/01/2024 11:54 AM EDT Tita Wade MD POINT OF CARE TEST ENTER/EDIT ORDERABLES Edited Result - Final documented in this encounter Visit Diagnoses Diagnosis CREST syndrome (CMS/HCC)- Primary Systemic sclerosis Benign essential hypertension Essential hypertension, benign Type 2 diabetes mellitus without complication, with long-term current use of insulin (CMS/HCC) Raynaud's phenomenon without gangrene Osteopenia, unspecified location Neuropathy Mononeuritis of unspecified site documented in this encounter Additional Health Concerns Assessment Noted Time PHQ-9 Depression Total Score: 0 01/17/20 23 9:22 AM EDT documented as of this encounter Care Teams Mail Carrier And Clerk Relationship Specialty Start Date End Date Tita Wade MD [address] [place] [address] PCP - General Internal Medicine 10/31/23 documented as of this encounter
--- OUTSIDE RECORDS SUMMARY | 2024-12-02 10:22 | XMS_ITS | Encounter Summary ---
Author Organization [employer] Address [address] [place] [address] 7 [place] [address] Care Team Providers Care Hand Launderer Name Role Phone Jarod Santiago MD Primary Care Prov ider Tita Wade MD Primary Care Provider [phone] Encounter Details Date Type Department Care Team (Latest Contact Info) Description 10/09/2020 Abstract [facility] CONVERSIONS Dental, Provider, DDS Social History Tobacco Use Types Packs/Day Years Used Date Smoking Tobacco: Never Assessed Comments Unknown Sex and Gender Information Value Date Recorded Sex Assigned at Female 06/03/2022 10:18 AM EDT Legal Sex Female 10:18 AM EDT Gender Identity Female 06/03/2022 10:18 AM EDT Sexual Orientation Straight 01/08/2023 9: 11 AM EDT documented as of this encounter Plan of Treatment Not on file documented as of this encounter Visit Diagnoses Not on filedocumented in this encounter Care Teams Hand Launderer Relationship Specialty Start Date End Date Jarod Santiago MD [address] [place], [place] [phone] PCP - General Internal Medicine 06/13/23 10/30/23 Tita Wade MD [address] [place] [address] PCP - General Internal Medicine 10/31/23 documented as of this encounter
--- OUTSIDE RECORDS SUMMARY | 2024-12-02 10:22 | XMS_ITS | Encounter Summary ---
Author Organization [employer] Address [address] [place] [address] Care Team Providers Care Crop Scout Name Role Phone Tita Wade MD Primary Care Provider [phone] Encounter Details Date Type Department Care Team (Latest Contact Info) Description 12/01/2024 Travel Social History Tobacco Use Types Packs/Day Years [...] documented as of this encounter Care Teams Crop Scout Relationship Specialty Start Date End Date Tita Wade MD [address] [place] [address] PCP - General Internal Medicine 10/31/23 documented as of this encounter
--- OUTSIDE RECORDS SUMMARY | 2024-12-02 10:22 | XMS_ITS | Encounter Summary ---
Author Organization [employer] Address [address] [facility] [address] [place] [address] Care Team Providers Care Intermission Coordinator Name Role Phone Tita Wade MD Primary Care Provider [phone] Reason for Visit * Reason Comments Med Refill Encounter Details Date Type Department Care Team ([facility] st Contact Info) Description 08/29/2024 Refill [facility] MEDICINE [address] [place], [place] [phone] Tita Wade MD [address] [place], [place] [phone] Social History Tobacco Use Types Packs/Day Years Used Date Smoking Tobacco: Never Passive Smoke Exposure: Never Smokeless Tobacco: Never Alcohol Use Standard Drinks/Week Comments Never 0 (1 standard drink = 0.6 oz pur e alcohol) Depression Answer Date Recorded Patient Health Questionnaire-9 Score 0 01/16/2023 Housing Stability Answer Date Recorded What is your housing situation today? I have julio cesarraymundo smith 06/02/[address] you [...] documented as of this encounter Care Teams Intermission Coordinator Relationship Specialty Start Date End Date Tita Wade MD [address] [place] [id number] PCP - General Internal Medicine 10/31/23 documented as of this encounter
--- OUTSIDE RECORDS SUMMARY | 2024-12-02 10:22 | XMS_ITS | Encounter Summary ---
Author Organization [employer] Address [address] [place] [address] 7 [place] [address] Care Team Providers Care Cheese Weigher Name Role Phone Jarod Santiago MD Primary Care Prov ider Tita Wade MD Primary Care Provider [phone] Encounter Details Date Type Department Care Team (Late st Contact Info) Description 10/01/2022 Orders Only [facility] [address] [place], [place] [phone] Crescencio Hein MD [address] [place], [place] [phone] Benign essential hypertension Social History Tobacco Use Types Packs/Day Years [...] AM EST documented as of this encounter Plan of Treatment Not on file documented as of this encounter Visit Diagnoses Diagnosis Benign essential hypertension Essential hypertension, benign documented in this encounter Care Teams Cheese Weigher Relationship Specialty Start Date End Date Jarod Santiago MD [address] [place] [address] PCP - General Internal Medicine 06/13/23 10/30/23 Tita Wade MD [address] [place] [address] PCP - General Internal Medicine 10/31/23 documented as of this encounter
--- OUTSIDE RECORDS SUMMARY | 2024-12-02 10:22 | XMS_ITS | Encounter Summary ---
Author Organization [employer] Address [address] [place] [address] [address] [place] [address] Care Team Providers Care Leather Drier Name Role Phone Jarod Santiago MD Primary Care Prov ider Tita Wade MD Primary Care Provider [phone] Encounter Details Date Type Department Care Team (Latest Contact Info) Description 09/27/2019 Abstract [facility] CONVERSIONS Dental, Provider, DDS Social History Tobacco [...] on filedocumented in this encounter Care Teams Leather Drier Relationship Specialty Start Date End Date Jarod Santiago MD [address] [place], [place] [phone] PCP - General Internal Medicine 06/13/23 10/30/23 Tita Wade MD [address] [place] [address] PCP - General Internal Medicine 10/31/23 documented as of this encounter
[2024-12-02 10:38] LABS: Basophils Absolute Auto 0.1 X10*3/uL (0.0-0.2); Basophils Percent Auto 0.7 % (0-2); Eosinophils Absolute Auto 0.3 X10*3/uL (0.0-0.4); Eosinophils Percent Auto 4.3 % (0-4); Hematocrit 36.6 % (37.0-47.0); Hemoglobin 11.3 g/dl (12.0-16.0); Imm Gran Abs Auto 0.04 X10*3/uL (0.00-0.03); Imm Gran Pct Auto 0.5 % (0.0-0.4); Lymphocytes Absolute Auto 1.5 X10*3/uL (1.2-4.9); Lymphocytes Percent Auto 20.3 % (20-40); Mean Corpuscular HGB Conc 30.9 g/dl (31.0-35.0); Mean Corpuscular Hemoglobin 24.7 pg (27.0-33.0); Mean Corpuscular Volume 79.9 fL (80.0-98.0); Mean Platelet Volume 10.6 fL (9.4-12.3); Monocytes Absolute Auto 0.6 X10*3/uL (0.1-1.2); Monocytes Percent Auto 8.3 % (2-11); Neutrophils Percent Auto 65.9 % (45-73); Platelet Count 271 X10*3/uL (160-400); Red Blood Count 4.58 X10*6/uL (4.20-5.50); Red Cell Distribution Width 16.9 % (11.0-16.0); White Blood Count 7.6 X10*3/uL (4.8-10.8)
[2024-12-02 10:47] LABS: Estimated Average Glucose 192 mg/dL; Hemoglobin A1C 198.1538 umol/L; Hemoglobin A1c % 8.3 % (<6.0); Total Hemoglobin (HGBA1C) 2941.1054 umol/L
[2024-12-02 11:06] LABS: Appearance Urine Clear; Color Urine Yellow; Glucose Urine UA Negative (Negative); Leukocyte Esterase Urine Small (1+) (Negative); Nitrite Urine Negative (Negative); PH 5.5 (5.0-9.0); Specific Gravity - Urine 1.015 (1.005-1.025); UMIC TRIGGER UACC YES; Urine Blood Negative (Negative); Urine Ketones Negative (Negative); Urine Protein Negative (Neg-Trace)
[2024-12-02 11:15] LABS: Bacteria Urine None Seen (None Seen); Hyaline Casts Urine 0-2 /LPF (0-2); RBC Urine 0-2 /HPF (0-2); UACC Culture Trigger YES
[2024-12-02 11:21] LABS: Alanine Aminotransferase 12 U/L (0-31); Albumin Level 4.1 g/dL (3.5-5.0); Alkaline Phosphatase 52 U/L (39-117); Aspartate Amino Transferase 19 U/L (5-31); Bilirubin Direct 0.2 mg/dL (0.0-0.5); Bilirubin Total 0.6 mg/dL (0.0-1.0); C Reactive Protein 0.14 mg/dL (< or = 0.50); Cholesterol 152 mg/dL (<200); HDL Cholesterol 47 mg/dL (>40); LDL Cholesterol Calculated 87 mg/dL (<100); TSH reflex Free T4 2.73 uIU/mL (0.32-4.0); Triglycerides 92 mg/dL (<150); Uric Acid 4.9 mg/dL (2.4-5.7); Vitamin D 25-OH Total 48.3 ng/mL (>30)
[2024-12-02 11:36] LABS: Folate 13.9 ng/mL (> or = 4.0); Vitamin B12 216 pg/mL (200-900)
[2024-12-02 11:42] LABS: Erythrocyte Sedimentation Rate 12 MM/HR (0-20)
[2024-12-02 11:58] LABS: Creatinine Urine 93.48 mg/dL; Microalbumin Urine < 5.0 mg/L
[2024-12-06 11:25] LABS: Vitamin B6 6.2 ng/mL (2.1-21.7)
[2024-12-07 15:37] LABS: Vitamin B1 9 nmol/L (8-30)
== END 2024-12-02 09:30 | disposition home or self-care (01) ==
LOC: HO.CHCLDS 09:29
PROVIDERS: Visit Provider Pediatrics
DX: M34.1 CR(E)ST syndrome (principal); I10 Essential (primary) hypertension; E11.9 Type 2 diabetes mellitus without complications; I73.00 Raynaud's syndrome without gangrene; M85.80 Other specified disorders of bone density and structure, unspecified site; G62.9 Polyneuropathy, unspecified; Z79.4 Long term (current) use of insulin
CPT/HCPCS: 36415; 80061; 80076; 81001; 81003; 82043; 82306; 82550; 82570; 82607; 82746; 83036; 84207; 84425; 84443; 84550; 85025; 85652; 86140; 87086

== ENCOUNTER 2025-02-10 09:58 | Outpatient (AMB) | payer MEDICARE, SELFPAY ==
--- NOTE | 2025-02-10 10:14 | A.OFFVIS_ITS ---
Vital Signs 02/10/25 10:25 Height 5 ft 4 in Weight 153 lb 0.013 oz BMI 26.3 BP 130/80 Blood Pressure Location Rt brachial Position Sitting Pulse 89 Pulse Source Pulse Oximeter Pulse Oximetry (%) 98 Oxygen Delivery Method Room Air Intake Visit Reasons: LSSc Intake Note: Patient presents for LSSc follow up. Repairer General Required: Yes Repairer General Language: Turkmen Repairer General Services: Repairer General Present Repairer General Name: Na Marcos0 Information Interpreted: non-clinical & clinical Allergies No Known Allergies Allergy (Verified 02/10/25 10:22) Medication List - Last Reconciled 02/10/25 by Kathie Gomez MD alcohol swabs (Alcohol Prep Pads) 1 pad topical DAILY PRN amlodipine 10 mg PO QAM aspirin 81 mg PO DAILY blood sugar diagnostic (FreeStyle Lite Strips) As directed cholecalciferol (vitamin D3) 50 mcg PO QAM docusate sodium (Colace) 100 mg PO BEDTIME dulaglutide (Trulicity) 0.75 mg subcut DAILY ferrous sulfate (FeroSul) 325 mg PO BID insulin glargine (Lantus Solostar U-100 Insulin) 42 units subcut BEDTIME lancets (TRUEplus Lancets) As directed lisinopril 40 mg PO QAM metformin 1,000 mg PO BID qpuxaxab-mlz-IE-lycopen-lutein 0.4 mg-300 mcg- 250 mcg (Cerovite Senior) 1 tab PO DAILY bhvzrzkqwkul-fhyd-apsrw acid 18-400 mg-mcg (Certavite-Antioxidant) 1 tab PO QAM mupirocin 2% 1 appl topical TID nitroglycerin 2% 0.5 inches transdermal DAILY omeprazole 20 mg PO DAILY pen needle, diabetic (Pentips Pen Needle) As directed polyethylene glycol 3350 (ClearLax) 17 grams PO DAILY simvastatin 10 mg PO BEDTIME HPI Comments Details: Patient is a 64 y.o. female with HTN, DM, GERD, HLD, and Limited cutaneous systemic sclerosis here today for follow up Interval History: Patient last seen 07/27/[address] Chau. - Continued episodes of her fingers change color to blue and purple - No changes made to medications Today - Doing well - No SOB - No skin tightening - Continued episodes of her fingers change color to blue and purple and toes Rheumatologic History: dx 09/2022 (Raynaud's, digital tip ulcers, GAVE, abnormal nailfold capillaroscopy, anticentromere antibody) Her sister is Dr. Chelo Mcgee(nephrology in the [place] [phone]) Initial history: The patient presents today with her son who is translating for evaluation of hand pain. Most specifically this is pain at the end of 2 her fingertips, the right 3rd finger and the left index fingertip. She gives a history that for the last couple of years in the winter time she would have a tendency for her fingertips to turn blue. Earlier this winter this developed into some cracking of the nail bed and the left index became more swollen and paunful. She says she was seen in urgent care setting and the area was drained and she was put on antibiotics. She took the antibiotics for 2 weeks and the symptoms are a bit better but she still has tenderness over that finger and the right 3rd fingertip. She has not noticed any changes in the skin turgor in general in any of her fingers. She has not had any subcutaneous lumps or rashes. She does get occasional pain in the right shoulder that radiates to the deltoid. She has not seen any swollen joints. She did see GI for some heartburn symptoms and was found to have some esophagitis but she denies any dysphagia currently. She is taking some famotidine for the esophagitis currently. She apparently is now on 10 mg daily amlodipine and 90 mg daily nifedipine. These have helped somewhat the color changes but the symptoms have continued. She uses some topical muciprocin ointment to the fingertip areas that might be slightly open. She has type 2 diabetes on Trulicity, insulin, and metformin. She also takes lisinopril 40 mg daily for hypertension. Current Rheumatology Medication(s): Amlodipine 10mg (prescribed by another doctor) [facility] Medical History AC joint arthropathy GAVE (gastric antral vascular ectasia) Bilateral lower extremity edema Helicobacter pylori infection HTN (hypertension) Elevated cholesterol Diabetes mellitus Dysphagia Surgical History Hx of esophagogastroduodenoscopy Hx of colonoscopy History of cataract extraction Family History Mother HTN (hypertension) Cancer Father Paralysis Social History Household Members: Spouse and Family Housing: House Alcohol intake: current Alcohol intake frequency: does not drink Patient Tobacco Use Status: Never used Tobacco Current occupational status: unemployed Review of Systems Const Details: Review of Systems Constitutional: Denies fever, chills, weight loss ENT: Denies vision changes, eye pain or eye redness, dental caries, dry mouth GI: Denies nausea, vomiting, diarrhea, abdominal pain, change in BM Pulm: Denies SOB, DAUGHERTY, hemoptysis, wheezing Cards: Denies chest pain, palpitations Skin: Denies photosensitivity, SOLAR CONSULTANT: Denies headaches, weakness, paresthesias, recurrent falls MSK: as per HPI All other systems reviewed and are unremarkable except noted above Physical Exam Vital Signs: Last Vital Signs Pulse 89 02/10/25 10:25 BP 130/80 02/10/25 10:25 Pulse Ox 98 02/10/25 10:25 Oxygen Delivery Method Room Air 02/10/25 10:25 BMI result Body Mass Index 26.3 Vital signs reviewed Physical Examination CONSTITUITIONAL Patient alert and cooperative. Well appearing and in no apparent painful distress HEENT Conjunctiva and sclera clear. No lymphadenopathy. CHEST/RESPIRATORY SYSTEM Normal respiratory effort and able to speak in complete sentences. Clear to auscultation bilaterally. No crackles, rales, rhonchi, wheezes heard. CARDIAC SYSTEM Regular rate and rhythm. S1 and S2 heard no murmurs. Radial pulses intact bilaterally MSK Hands * Right Hand: Able to make a fist. No swelling or tenderness to palpation of these joints. No deformities noted. * Left Hand: Able to make a fist. No swelling or tenderness to palpation of these joints. No deformities noted. Wrists * Right Wrist: Full ROM. 70 degrees of wrist flexion, 80 degrees of wrist extension. No swelling or TTP * Left Wrist: Full ROM. 70 degrees of wrist flexion, 80 degrees of wrist extension. No swelling or TTP Elbows * Right Elbow: Full ROM. No swelling or TTP. No TTP of the medial and lateral epicondyles * Left Elbow: Full ROM. No swelling or TTP. No TTP of the medial and lateral epicondyles Shoulders * Right shoulder: Full ROM. No swelling noted. No TTP of the AC joint, subacromial bursa or posterior shoulder * Left shoulder: Full ROM. No swelling noted. No TTP of the AC joint, subacromi al bursa or posterior shoulder Knees * Right knee: Full ROM. No swelling noted. No TTP of the knee joint lie or pes anserine bursa * Left knee: Full ROM. No swelling noted. No TTP of the knee joint lie or pes anserine bursa. Ankles * Right ankle: Good ankle dorsiflexion and plantar flexion. No swelling. No TTP of the ankle joint * Left ankle: Good ankle dorsiflexion and plantar flexion. No swelling. No TTP of the ankle joint Feet * Right foot: Negative squeeze test * Left foot: Negative squeeze test Tender points? * No tenderness to palpation of the bilateral trapezius, supraspinatus, anterior costochondral junctions, bilateral suboccipital muscle insertions SKIN Dilated nailfold capillaries MRSS 0 Results Reviewed Results Reviewed: Laboratory Tests 12/02/24 10:13 WBC 7.6 RBC 4.58 Hgb 11.3 L Hct 36.6 L Plt Count 271 ESR 12 Direct Bilirubin 0.2 AST 19 ALT 12 Alkaline Phosphatase 52 Total Creatine Kinase 71 C-Reactive Protein 0.14 Laboratory Tests 09/17/22 11:43 DAVI Screen POSITIVE A DAVI Titer > OR = 1:1280 A DAVI Pattern Nuclear, Centromere A Centromere B Antibody >8.0 POS A ECHO 09/2022 Conclusions: - The left ventricular systolic function is normal. The calculated ejection fraction is 67% by biplane method. - There is mild septal asymmetric hypertrophy. - There is mild calcification of the aortic valve. - No obvious valvular pathology seen on this study. Findings Left Ventricle Normal left ventricular cavity size. There is normal left ventricular wall thickness. The left ventricular systolic function is normal. The calculated ejection fraction is 67% by biplane method. There is no evidence of regional wall motion abnormalities. Diastolic function is normal for age. There is mild septal asymmetric hypertrophy. LV peak GLS -17.4%. Right Ventricle Normal right ventricular cavity size and systolic function. Atria Both atria are normal in size. Aortic Valve There is a normal trileaflet aortic valve. There is mild calcification of the aortic valve. There is no aortic valve stenosis. There is no aortic valve regurgitation. Mitral Valve The mitral valve appears normal. There is no mitral valve regurgitation. There is no mitral valve stenosis. Pulmonic Valve The pulmonic valve is likely normal. Tricuspid Valve There is trace tricuspid valve regurgitation. Tricuspid regurgitation envelope is inadequate for calculation of right ventricular systolic pressure. Great Vessels The asc aorta is normal in size. Venous The inferior vena cava is normal in size and collapses greater than 50% with inspiration. Pericardium/Pleural There is no evidence of pericardial effusion. Assessment & Plan Assessment & Plan (1) CREST syndrome: Comment: dx 09/2022 (Raynaud's, digital tip ulcers, GAVE, abnormal nailfold capillaroscopy, anticentromere antibody) Her sister is Dr. Chelo Mcgee(nephrology in the [place] [phone]) Code(s): M34.1 - CR(E)ST syndrome Category: Medical Plan: #Limited systemic sclerosis Patient is a old female with limited systemic sclerosis here today for follow up. Still complaining of Raynaud's symptoms. Advised patient that she may need to wear gloves and/or socks even when she goes to open the Fridge. No skin tightening noted No SOB Plan - ECHO every 2-3 years checcking for pulm HTN. Last ECHO 09/2022. New ECHO ordered - PFTs every 2-3 years. PFTs ordered - Continue amlodipine 10mg PO daily - RTC 6 months Plan I spent 30 minutes reviewing the record and labs, taking a history, examining the patient, discussing the treatment plan, ordering diagnostic work up and documenting in the medical record Orders: Orders CA echo transthoracic complete Today M34.1 - CR(E)ST syndrome PFT pulmonary function test Today M34.1 - CR(E)ST syndrome Coding Level of Care Code Est Pt Level 4 (31245) Complex EM visit Add On G2211 Diagnoses CREST syndrome M34.1
[2025-02-10 10:25] VITALS: BP 130/80; PULSE 89; O2SAT 98; BMI 26.3
--- OUTSIDE RECORDS SUMMARY | 2025-02-10 10:36 | XMS_ITS | Encounter Summary ---
Author Organization [employer] Address [address] [place] [address] Care Team Providers Care Respiratory Supervisor Name Role Phone Jarod Santiago MD Primary Care Prov ider Tita Wade MD Primary Care Provider [phone] Encounter Details Date Type Department Care Team (Late st Contact Info) Description 03/04/2023 Orders Only [facility] [address] [place], [place] [id number] Danielle Recinos LPN Social History Tobacco Use [...] as of this encounter Plan of Treatment Upcoming Encounters Date Type Department Care Team (Late st Contact Info) Description 02/14/2025 10:30 AM EDT Clinical Support [facility] [address] [place] [address] 03/09/2025 11:30 AM EDT Office Visit [facility] [address] [place] [address] Tita Wade MD [address] [place] [address] documented as of this encounter Visit Diagnoses Not on filedocumented in this encounter Additional Health Concerns Assessment Noted Time PHQ-9 Depression Total Score: 0 01/17/20 23 9:22 AM EDT documented as of this encounter Care Teams Respiratory Supervisor Relationship Specialty Start Date End Date Jarod Santiago MD [address] [place] [address] PCP - General Internal Medicine 06/13/23 10/30/23 Tita Wade MD [address] [place] [id number] PCP - General Internal Medicine 10/31/23 documented as of this encounter
== END 2025-02-10 11:05 | disposition home or self-care (01) ==
LOC: HO.RHE 09:59
PROVIDERS: PCP Pediatrics; Visit Provider Student in an Organized Health Care Education/Training Program
DX: M34.1 CR(E)ST syndrome (principal)
CPT/HCPCS: 99214; G2211

== ENCOUNTER → 2025-02-10 09:58 | Outpatient (BNVA) | payer MEDICARE, SELFPAY | PROVIDERS: PCP Pediatrics; Visit Provider Student in an Organized Health Care Education/Training Program | DX: M34.1 CR(E)ST syndrome (principal); Z79.899 Other long term (current) drug therapy | CPT/HCPCS: 99212 ==

== ENCOUNTER 2025-03-12 10:27 | Outpatient (REF) | payer MEDICARE, SELFPAY ==
[2025-03-12 10:59] LABS: Hematocrit 36.6 % (37.0-47.0); Hemoglobin 11.4 g/dl (12.0-16.0); Mean Corpuscular HGB Conc 31.1 g/dl (31.0-35.0); Mean Corpuscular Hemoglobin 25.2 pg (27.0-33.0); Mean Corpuscular Volume 81.0 fL (80.0-98.0); NRBC Abs Auto 0.000 X10*3/uL (0.0-0.012); NRBC Pct Auto 0.0 /100WBC (0.0-0.2); Platelet Count 244 X10*3/uL (160-400); Red Blood Count 4.52 X10*6/uL (4.20-5.50); White Blood Count 8.8 X10*3/uL (4.8-10.8)
== END 2025-03-12 10:28 | disposition home or self-care (01) ==
LOC: HO.LAB 10:27
PROVIDERS: PCP Pediatrics; Visit Provider Nurse Practitioner Family
DX: K21.9 Gastro-esophageal reflux disease without esophagitis (principal)
CPT/HCPCS: 36415; 85027

== ENCOUNTER 2025-03-15 08:01 | Outpatient (AMB) | payer MEDICARE, SELFPAY ==
--- NOTE | 2025-03-15 08:02 | MHC.OFFVIS ---
Vital Signs 03/15/25 08:03 Height 5 ft 4 in Weight 153 lb BMI 26.3 BP 118/68 Blood Pressure Location Rt brachial Position Sitting Pulse 94 Pulse Source Pulse Oximeter Pulse Oximetry (%) 99 Oxygen Delivery Method Room Air Intake Visit Reasons: 6m f/u Intake Note: ESTABLISHED PATIENT for mgmt of GAVE, constipation, early satiety. Reminded daughter of labs outstanding. Pt VM Box full. Daughter confirmed appt and instructions. Chief Complaint; Pt denies any GI changes or new sx since last visit. Special Effects Specialist Required: No Accompanied by: Self / Same As Patient Allergies No Known Allergies Allergy (Verified 02/10/25 10:22) HPI HPI 6m f/u: Details: LAST VISIT GERD with esophagitis GAVE (gastric antral vascular ectasia) Iron deficiency anemia Plan Patient will continue omeprazole daily. Avoid dietary triggers and late night snacking. Patient will repeat CBC in 6 months. Continue following up with Hematology. Will send patient to do fit test, if Hemoccult positive will consider sending patient for upper endoscopy. Patient will follow-up in the office in 6 months, sooner on as needed basis. She is agreeable to this plan and verbalizes understanding of instructions. She was given the opportunity to ask questions and all questions answered. ? Thank you for allowing me to participate in her care Orders FITS Today Z87.19 Complete Blood Count no Diff 6 Months K21.9 Refilled omeprazole 20 mg PO DAILY 90 caps 3RF K21.00 Discontinued famotidine (Pepcid) Discontinued Reason: Doctor's Order 20 mg PO BEDTIME 90 tabs 3RF K21.9 TODAY'S VISIT Patient is here today for follow-up. Patient reports that since last visit she has been doing well. She denies any acid reflux, dyspepsia, dysphagia or odynophagia. Patient is taking omeprazole daily. Denies any GI concerning symptoms. States that she is moving her bowels better now. Tries to avoid certain food last colonoscopy was in November of 2022. Patient had no polyps, however due to history of tubular adenoma recommendation was made for patient to repeat colonoscopy in 5 years. Patient denies melena, hematochezia, unintentional weight loss or ribbon like stools. Lab work done and mild anemia, no change [facility] Medical History AC joint arthropathy GAVE (gastric antral vascular ectasia) Bilateral lower extremity edema Helicobacter pylori infection HTN (hypertension) Elevated cholesterol Diabetes mellitus Dysphagia Surgical History Hx of esophagogastroduodenoscopy Hx of colonoscopy History of cataract extraction Family History Mother HTN (hypertension) Cancer Father Paralysis Social History Household Members: Spouse and Family Housing: House Alcohol intake: current Alcohol intake frequency: does not drink Patient Tobacco Use Status: Never used Tobacco Current occupational status: unemployed Review of Systems Const Denies weight gain and Denies weight loss ENT Reports no additional complaints, Denies dysphagia and Denies odynophagia Card Reports no additional complaints Resp Reports no additional complaints GI Denies abdominal pain, Denies belching, Denies melena, Denies bloating, Denies change in bowel habits, Denies dysphagia, Denies excessive flatus, Denies dyspepsia, Denies heartburn, Denies diarrhea, Denies loose stools, Denies nausea, Denies odynophagia and Denies vomiting Musc Reports no additional complaints Neuro Reports no additional complaints Psych Reports no additional complaints Endo Reports no additional complaints Physical Exam Vital Signs: Last Vital Signs Pulse 94 03/15/25 08:03 BP 118/68 03/15/25 08:03 Pulse Ox 99 03/15/25 08:03 Oxygen Delivery Method Room Air 03/15/25 08:03 BMI result Body Mass Index 26.3 Const General: healthy appearing, no acute distress and well developed Nutritional Appearance: well nourished Orientation/consciousness: patient oriented x3 Resp Effort & Inspection: normal respiratory effort, able to speak in complete sentences, no tracheal deviation and symmetric chest movement Auscultation: clear to auscultation bilaterally Cardio Rate: regular rate GI Inspection: Yes normal to inspection and No distended Palpation (GI): Soft to palpation, not firm, nontender and No hepatosplenomegaly present Auscultation: normal bowel sounds General: Yes no CVA tenderness Back/Spine/Pelvis Back: no CVA tenderness Skin General skin exam: elasticity normal, turgor normal and dry skin Neuro General: patient oriented x3 Psych Appearance: grossly normal Mental Status: mental status grossly normal Results Reviewed Results Reviewed: Laboratory Tests 03/12/25 10:40 WBC 8.8 RBC 4.52 Hgb 11.4 L Hct 36.6 L MCV 81.0 Assessment & Plan Assessment & Plan (1) GERD with esophagitis: Code(s): K21.00 - Gastro-esophageal reflux disease with esophagitis, without bleeding Category: Medical Qualifiers: Esophagitis bleeding: without hemorrhage Qualified Code(s): K21.00 - Gastro-esophageal reflux disease with esophagitis, without bleeding (2) Helicobacter pylori infection: Code(s): A04.8 - Other specified bacterial intestinal infections Category: Medical (3) GAVE (gastric antral vascular ectasia): Code(s): K31.819 - Angiodysplasia of stomach and duodenum without bleeding Category: Medical Plan Patient was encouraged to continue taking omeprazole. Avoid dietary triggers and late night snacking. Staying upright for minimum 2 hours after meals discussed with patient. Patient was encouraged to eat low fat low carb high-protein diet. Increase fluid intake, fiber and activity to promote better bowel motility. Patient will be seen in 6 months, sooner on as needed basis for that she is agreeable to this plan and verbalizes understanding of instructions. She was given the opportunity to ask questions and all questions answered. Thank you for allowing me to participate in her care Coding Level of Care Code Est Pt Level 4 (51947) Complex EM visit Add On G2211 Diagnoses Gastroesophageal reflux disease with esophagitis without hemorrhage K21.00 Esophagitis bleeding: without hemorrhage Helicobacter pylori infection A04.8 GAVE (gastric antral vascular ectasia) K31.819 Time Spent (min) 35 Comment 25 minutes spent with patient and additional 10 minutes spent reviewing her records
[2025-03-15 08:03] VITALS: BP 118/68; PULSE 94; O2SAT 99; BMI 26.3
--- OUTSIDE RECORDS SUMMARY | 2025-03-15 08:05 | XMS_ITS | Encounter Summary ---
Author Organization [employer] Address [address] [facility] [address] [place] [address] Care Team Providers Care Sand Cleaning Machine Operator Name Role Phone Jarod Santiago MD Primary Care Prov ider Tita Wade MD Primary Care Provider [phone] Encounter Details Date Type Department Care Team (Late st Contact Info) Description 03/04/2023 Orders Only [facility] [address] [place], [place] [phone] Danielle Recinos LPN Social History Tobacco Use [...] Care Team (Late st Contact Info) Description 03/18/2025 10:30 AM EDT Clinical Support [facility] [address] [place] [address] 05/10/2025 9:45 AM EDT Office Visit [facility] [address] [place] [address] Tita Wade MD [address] [place] [address] documented as of this encounter Visit Diagnoses Not on filedocumented in this encounter Additional Health Concerns Assessment Noted Time PHQ-9 Depression Total Score: 0 01/17/20 9:22 AM EDT documented as of this encounter Care Teams Sand Cleaning Machine Operator Relationship Specialty Start Date End Date Jarod Santiago MD [address] [place] [address] PCP - General Internal Medicine 06/13/23 10/30/23 Tita Wade MD [address] [place] [address] PCP - General Internal Medicine 10/31/23 documented as of this encounter
== END 2025-03-15 08:19 | disposition home or self-care (01) ==
LOC: HO.HGI 08:01
PROVIDERS: PCP Pediatrics; Visit Provider Nurse Practitioner Family
DX: K21.00 Gastro-esophageal reflux disease with esophagitis, without bleeding (principal); A04.8 Other specified bacterial intestinal infections; K31.819 Angiodysplasia of stomach and duodenum without bleeding
CPT/HCPCS: 99214; G2211

== ENCOUNTER → 2025-03-15 08:01 | Outpatient (BNVA) | payer MEDICARE, SELFPAY | PROVIDERS: PCP Pediatrics; Visit Provider Nurse Practitioner Family | DX: K21.00 Gastro-esophageal reflux disease with esophagitis, without bleeding (principal); A04.8 Other specified bacterial intestinal infections; K31.819 Angiodysplasia of stomach and duodenum without bleeding | CPT/HCPCS: 99212 ==

== ENCOUNTER → 2025-03-17 07:59 | Outpatient (REF) | payer MEDICARE, SELFPAY ==
--- NOTE | 2025-03-17 08:01 | CA_ITS ---
Transthoracic Echocardiogram Patient (Last, First, Middle): Brandon Mcgee, Gender: Female Date of : 1960 Age: 64 Procedure Date: 03/17/2025 Procedure Type: Transthoracic Echocardiogram Location: OP Height: 162.56 cm Weight: 69.4 kg BSA: 1.75 m2 Heart Rate: bpm BP: 118 / 68 mmHg [employer]cre[employer]: ADE Referring MD: Kathie Gomez MD Front End Loader Operator: Petr River MD Symptoms: M34.1 - CR(E)ST syndrome Study Quality: Adequate ECG Rhythm: Sinus Conclusions: - 1. Normal LV ejection fraction of 65-70% with impaired relaxation filling pattern and elevated filling pressures 2. Mild aortic stenosis 3. RV systolic pressure was not calculated on this study 4. No gross pericardial effusion Findings Left Ventricle Normal left ventricular size, thickness, and systolic function. The visually estimated ejection fraction is between 65-70%. Spectral Doppler is indicative of an impaired relaxation filling pattern. Elevated filling pressures. E/E prime ratio is >15, consistent with elevated filling pressures. Right Ventricle Normal right ventricular cavity size and systolic function. Atria Both atria are normal in size. There is lipomatous hypertrophy of the interatrial septum. There is no evidence of interatrial shunt. Aortic Valve There is mild calcification of the aortic valve. There is mild aortic valve stenosis. The peak aortic gradient is 22 mmHg.The mean gradient is 12 mmHg. There is no aortic valve regurgitation. Mitral Valve There is mild anterior and posterior mitral leaflet thickening. There is trace mitral valve regurgitation. There is no mitral valve stenosis. Pulmonic Valve The pulmonic valve was not well visualized. Tricuspid Valve Likely normal tricuspid valve structure and function. Tricuspid regurgitation envelope is inadequate for calculation of right ventricular systolic pressure. Normal right atrial pressure. Great Vessels All visible segments of the aorta are normal in size. The pulmonary artery was not well visualized. There is no dilatation of the ascending aorta measuring 3.20 cm. Small plaque is seen in the sino tubular ridge. Venous The inferior vena cava is normal in size and collapses greater than 50% with inspiration. Pericardium/Pleural There is no evidence of pericardial effusion. Prior Study Comparison Changes noted compared to prior study dated: 09/25/2022. Mild aortic stenosis noted Measurements 2D Linear Measurements IVSd: 0.99 0.6-0.9/0.6-1.0 cm LVIDd: 3.85 3.9-5.3/4.2-5.9 cm LVIDd Index: 2.20 2.4-3.2/2.2-3.1 cm/m2 LVIDs: 2.30 2.0-3.6 cm LVPWd: 0.79 0.7-1.1 cm LA Diam: 3.20 2.7-3.8/3.0-4.0 cm LAIDs Index: 1.83 1.5-2.3 cm/m2 LV Mass: 126.34 67-162/88-224 g LV Mass Index: 72.20 43-95/49-115 g/m2 LVOT Diam: 1.80 3.0+(-)1.3 cm 2D Systolic Function EF 4C: 71.40 >55% EF 2C: 66.00 >55% EF BiP: 69.20 >55% Mitral Valve MV Pk E: 1.03 MV PK A: 1.08 MV Decel Time: 205.00 E/A: 1.00 E'Lateral: 7.29 E'Medial: 5.98 E/E' Med: 17.20 E/E' Lat: 14.10 PHT: 60.00 MVA PHT: 3.[address] [place]: 5.04 Aortic Valve AoV Pk Nick: 2.34 AoV Mn Nick: 1.62 AoV VTI: 0.51 AoV Pk Grad: 22.00 Aov Mn Grad: 12.00 ISABELLA Cont.VTI: 1.37 LVOT LVOT Pk Nick: 1.40 LVOT Mn Nick: 0.91 LVOT VTI: 0.28 LVOT Pk Grad: 8.00 LVOT Mn Grad: 4.00 LVOT Diam: 1.80 LVOT Area: 2.54 Diastolic Function MV Pk E: 1.03 MV Pk A: 1.08 E/A: 1.00 E'Medial: 5.98 E/E' Med: 17.20 E' Laterial: 7.29 E/E' Lat: 14.10 Right Ventricle TAPSE (mm): 22.60 TVS' Nick: 13.50 Tricuspid Valve RA Press: 3.00 Great Vessels Aorta Sinus of Valsalva: 3.06 2.0-3.5 cm Ao Asc: 3.20 2.1-3.4 cm Updated in Other Vendor System with Status of Final Petr River MD electronically signed on 03/17/2025 3:20:20 PM with status of Final
--- OUTSIDE RECORDS SUMMARY | 2025-03-17 08:02 | XMS_ITS | Encounter Summary ---
Author Organization [employer] Address [address] [facility] 7t [place] [address] Care Team Providers Care Hyperbaric Technician Name Role Phone Jarod Santiago MD Primary Care Prov ider Tita Wade MD Primary Care Provider [phone] Encounter Details Date Type Department Care Team (Late st Contact Info) Description 03/04/2023 Orders Only [facility] MEDICINE [address] [place], [place] [phone] Danielle Recinos LPN Social History Tobacco Use [...] Description 03/18/2025 10:30 AM EDT Clinical Support [facility] MED & PEDS [address] [place] [address] 05/10/2025 9:45 AM EDT Office Visit [facility] MED & PEDS [address] [place] [address] Tita Wade MD [address] [place] [address] documented as of this encounter Visit Diagnoses Not on filedocumented in this encounter Additional Health Concerns Assessment Noted Time PHQ-9 Depression Total Score: 0 01/17/20 9:22 AM EDT documented as of this encounter Care Teams Hyperbaric Technician Relationship Specialty Start Date End Date Jarod Santiago MD [address] [place] [address] PCP - General Internal Medicine 06/13/23 10/30/23 Tita Wade MD [address] [place] [address] PCP - General Internal Medicine 10/31/23 documented as of this encounter
== END ==
LOC: HO.CARD 07:59
PROVIDERS: PCP Pediatrics; Visit Provider Student in an Organized Health Care Education/Training Program
DX: M34.1 CR(E)ST syndrome (principal)
CPT/HCPCS: 93306

== ENCOUNTER → 2025-03-17 08:01 | Outpatient (BNV) | payer MEDICARE, SELFPAY | PROVIDERS: PCP Pediatrics; Visit Provider Internal Medicine Cardiovascular Disease | DX: I35.0 Nonrheumatic aortic (valve) stenosis (principal); M34.1 CR(E)ST syndrome | CPT/HCPCS: 93306 ==

== ENCOUNTER 2025-04-22 08:57 | Outpatient (REF) | payer MEDICARE, SELFPAY ==
--- NOTE | 2025-04-22 09:35 | PFT_ITS ---
Flows: FEV1: 86 % of predicted at 1.99 L FVC: 87 % of predicted at 2.58 L FEV1/FVC: 77 % Bronchodilator response: Absent Volumes: Total lung capacity: 85 % of predicted at 4.30 L Residual volume: 95 % of predicted at 1.78 L Slow vital capacity: 80 % of predicted at 2.52 L Expiratory reserve volume: 68 % of predicted at 0.52 L Diffusion capacity: Mildly decreased. Impression: No obstructive or restrictive ventilatory defect. No bronchodilator response. MTDD
[2025-04-22 09:37] VITALS: PULSE 82; O2SAT 100
--- OUTSIDE RECORDS SUMMARY | 2025-04-22 09:40 | XMS_ITS | Encounter Summary ---
Author Organization [employer] Address [address] [place] [address] 7 [place] [address] Care Team Providers Care Wearing Apparel Presser Name Role Phone Jarod Santiago MD Primary Care Prov ider Tita Wade MD Primary Care Provider [phone] Encounter Details Date Type Department Care Team (Latest Contact Info) Description 09/27/2019 Abstract [facility] CONVERSIONS Dental, Provider, DDS Social History Tobacco [...] Care Team (Late st Contact Info) Description 04/26/2025 3:15 PM EDT Clinical Support [facility] MED & PEDS [address] [place] [address] 05/10/2025 9:45 AM EDT Office Visit [facility]ED[facility] [address] [place] [address] Tita Wade MD [address] [place], [place] [phone] documented as of this encounter Visit Diagnoses Not on filedocumented in this encounter Care Teams Wearing Apparel Presser Relationship Specialty Start Date End Date Jarod Santiago MD [address] [place] [address] PCP - General Internal Medicine 06/13/23 10/30/23 Tita Wade MD [address] [place] [address] PCP - General Internal Medicine 10/31/23 documented as of this encounter
--- OUTSIDE RECORDS SUMMARY | 2025-04-22 09:40 | XMS_ITS | Encounter Summary ---
Author Organization [employer] Address [address] [facility] 7 [place] [address] Care Team Providers Care Manager Art Name Role Phone Tita Wade MD Primary Care Provider [phone] Reason for Visit * Reason Comments Med Refill Encounter Details Date Type Department Care Team (Late st Contact Info) Description 08/29/2024 Refill [facility] MEDICINE [address] [place], [place] [phone] Tita Wade MD [address] [place], [place] [phone] Social History Tobacco Use Types Packs/Day Years Used Date Smoking Tobacco: Never Passive Smoke Exposure: Never Smokeless Tobacco: Never Alcohol Use Standard Drinks/Week Comments Never 0 (1 standard drink = 0.6 oz pur e alcohol) Depression Answer Date Recorded Patient Health Questionnaire-9 Score 0 01/16/2023 Housing Stability Answer Date Recorded What is your housing situation today? I have julio cesar sarah 06/02/[address] you li [...] Description 04/26/2025 3:15 PM EDT Clinical Support [facility] MED & PEDS [address] [place] [address] 05/10/2025 9:45 AM EDT Office Visit [facility] MED & PEDS [address] [place] [address] Tita Wade MD [address] [place] [address] documented as of this encounter Visit Diagnoses Not on filedocumented in this encounter Additional Health Concerns Assessment Noted Time PHQ-9 Depression Total Score: 0 01/17/20 9:22 AM EDT documented as of this encounter Care Teams Manager Art Relationship Specialty Start Date End Date Tita Wade MD [address] [place] [address] PCP - General Internal Medicine 10/31/23 documented as of this encounter
--- OUTSIDE RECORDS SUMMARY | 2025-04-22 09:40 | XMS_ITS | Encounter Summary ---
Author Organization [employer] Address [address] [facility] 7t [place] [address] Care Team Providers Care Divorce Mediator Name Role Phone Jarod Santiago MD Primary Care Prov ider Tita Wade MD Primary Care Provider [phone] Encounter Details Date Type Department Care Team (Late st Contact Info) Description 03/04/2023 Orders Only [facility] MEDICINE [address] [place], [place] [phone] Danielle Recinos LPN Social History Tobacco Use [...] Encounters Date Type Department Care Team (Late Contact Info) Description 04/26/2025 3:15 PM EDT Clinical Support [facility] MED & PEDS [address] [place] [address] 05/10/2025 9:45 AM EDT Office Visit [facility] MED & PEDS [address] [place] [address] Tita Wade MD [address] [place] [address] documented as of this encounter Visit Diagnoses Not on filedocumented in this encounter Additional Health Concerns Assessment Noted Time PHQ-9 Depression Total Score: 0 01/17/20 9:22 AM EDT documented as of this encounter Care Teams Divorce Mediator Relationship Specialty Start Date End Date Jarod Santiago MD [address] [place] [address] PCP - General Internal Medicine 06/13/23 10/30/23 Tita Wade MD [address] [place] [address] PCP - General Internal Medicine 10/31/23 documented as of this encounter
--- OUTSIDE RECORDS SUMMARY | 2025-04-22 09:40 | XMS_ITS | Encounter Summary ---
Author Organization [employer] Address [address] [facility] [address] 7[address] [place] [address] Care Team Providers Care Creative Services Specialist Name Role Phone Tita Wade MD Primary Care Provider [phone] Encounter Details Date Type Department Care Team (Latest Contact Info) Description 04/19/2025 Travel Social History Tobacco Use Types Packs/Day [...] Description 04/26/2025 3:15 PM EDT Clinical Support [facility] MED & PEDS [address] [place] [address] 05/10/2025 9:45 AM EDT Office Visit [facility] MED & PEDS [address] [place] [address] Tita Wade MD [address] [place] [address] documented as of this encounter Visit Diagnoses Not on filedocumented in this encounter Additional Health Concerns Assessment Noted Time PHQ-9 Depression Total Score: 0 01/17/20 23 9:22 AM EDT documented as of this encounter Care Teams Creative Services Specialist Relationship Specialty Start Date End Date Tita Wade MD [address] [place] [address] PCP - General Internal Medicine 10/31/23 documented as of this encounter
--- OUTSIDE RECORDS SUMMARY | 2025-04-22 09:40 | XMS_ITS | Encounter Summary ---
Author Organization [employer] Address [address] [place] [address] 7 [place] [address] Care Team Providers Care Dental Billing Specialist Name Role Phone Jarod Santiago MD Primary Care Prov ider Tita Wade MD Primary Care Provider [phone] Encounter Details Date Type Department Care Team ([facility] st Contact Info) Description 10/01/2022 Orders Only [facility] MED & PEDS [address] [place], [place] [phone] Crescencio Hein MD [address] [place], [place] [phone] Benign essential hypertension Social History Tobacco Use [...] Description 04/26/2025 3:15 PM EDT Clinical Support [facility] MED & PEDS [address] [place] [address] 05/10/2025 9:45 AM EDT Office Visit [facility] MED & PEDS [address] [place] [address] Tita Wade MD [address] [place] [address] documented as of this encounter Visit Diagnoses Diagnosis Benign essential hypertension Essential hypertension, benign documented in this encounter Care Teams Dental Billing Specialist Relationship Specialty Start Date End Date Jarod Santiago MD [address] [place] [address] PCP - General Internal Medicine 06/13/23 10/30/23 Tita Wade MD [address] [place] [address] PCP - General Internal Medicine 10/31/23 documented as of this encounter
--- OUTSIDE RECORDS SUMMARY | 2025-04-22 09:40 | XMS_ITS | Encounter Summary ---
Author Organization [employer] Address [address] [facility] 7 [place] [address] Care Team Providers Care Family Advocate Name Role Phone Jarod Santiago MD Primary Care Prov ider Tita Wade MD Primary Care Provider [phone] Encounter Details Date Type Department Care Team (Late st Contact Info) Description 09/30/2022 Refill [facility] MEDICINE [address] [place] [address] Tita Wade MD [address] [place], [place] [phone] Benign essential hypertension (Primary Dx) Social History [...] documented in this encounter Plan of Treatment Upcoming Encounters Date Type Department Care Team (Late st Contact Info) Description 04/26/2025 3:15 PM EDT Clinical Support [facility] MED & PEDS [address] [place] [address] 05/10/2025 9:45 AM EDT Office Visit [facility] MED & PEDS [address] [place] [address] Tita Wade MD [address] [place] [address] documented as of this encounter Visit Diagnoses Diagnosis Benign essential hypertension- Primary Essential hypertension, benign documented in this encounter Care Teams Family Advocate Relationship Specialty Start Date End Date Jarod Santiago MD [address] [place] [address] PCP - General Internal Medicine 06/13/23 10/30/23 Tita Wade MD [address] [place] [address] PCP - General Internal Medicine 10/31/23 documented as of this encounter
--- OUTSIDE RECORDS SUMMARY | 2025-04-22 09:40 | XMS_ITS | Encounter Summary ---
Author Organization [employer] Address [address] [place] [address] 7 [place] [address] Care Team Providers Care Life Consultant Name Role Phone Jarod Santiago MD Primary Care Prov ider Tita Wade MD Primary Care Provider [phone] Encounter Details Date Type Department Care Team (Latest Contact Info) Description 10/09/2020 Abstract [facility] CONVERSIONS Dental, Provider, DDS Social [...] Upcoming Encounters Date Type Department Care Team ( st Contact Info) Description 04/26/2025 3:15 PM EDT Clinical Support [facility] MED & PEDS [address] [place] [address] 05/10/2025 9:45 AM EDT Office Visit [facility] MED & PEDS [address] [place] [address] Tita Wade MD [address] [place] [address] documented as of this encounter Visit Diagnoses Not on filedocumented in this encounter Care Teams Life Consultant Relationship Specialty Start Date End Date Jarod Santiago MD [address] [place] [address] PCP - General Internal Medicine 06/13/23 10/30/23 Tita Wade MD [address] [place] [address] PCP - General Internal Medicine 10/31/23 documented as of this encounter
--- OUTSIDE RECORDS SUMMARY | 2025-04-22 09:40 | XMS_ITS | Encounter Summary ---
Author Organization [employer] Address [address] [facility] 7 [place] [address] Care Team Providers Care Creative Producer Name Role Phone Tita Wade MD Primary Care Provider [phone] Reason for Visit * Reason Onset Date Comments Medication Question 04/07/2024 Encounter Details Date Type Department Care Team (Late st Contact Info) Description 04/07/2024 Telephone [facility] MEDICINE [address] [place], [place] [phone] Tita Wade MD [address] [place], [place] [phone] Medication Question Social History Tobacco Use Types [...] Description 04/26/2025 3:15 PM EDT Clinical Support [facility] MED & PEDS [address] [place] [address] 05/10/2025 9:45 AM EDT Office Visit [facility] MED & PEDS [address] [place] [address] Tita Wade MD [address] [place], [place] [phone] documented as of this encounter Visit Diagnoses Diagnosis Type 2 diabetes mellitus without complication, with long-term current use of insulin ([facility]) documented in this encounter Additional Health Concerns Assessment Noted Time PHQ-9 Depression Total Score: 0 01/17/20 23 9:22 AM EDT documented as of this encounter Care Teams Creative Producer Relationship Specialty Start Date End Date Tita Wade MD [address] [place] [address] MARY Simmons [address] PCP - General Internal Medicine 10/31/23 documented as of this encounter
--- OUTSIDE RECORDS SUMMARY | 2025-04-22 09:40 | XMS_ITS | Encounter Summary ---
Author Organization [employer] Address [address] [facility] 7 [place] [address] Care Team Providers Care Purchasing Manager/Sales Name Role Phone Tita Wade MD Primary Care Provider [phone] Reason for Visit * Reason Comments Med Refill Encounter Details Date Type Department Care Team ([facility] Contact Info) Description 02/11/2025 Refill [facility] MED & PEDS [address] [place], [place] [phone] Tita Wade MD [address] [place], [place] [phone] Benign essential hypertension Social History Tobacco Use [...] Description 04/26/2025 3:15 PM EDT Clinical Support [facility] MED & PEDS [address] [place] [address] 05/10/2025 9:45 AM EDT Office Visit [facility] MED & PEDS [address] [place] [address] Tita Wade MD [address] [place] [address] documented as of this encounter Visit Diagnoses Diagnosis Benign essential hypertension Essential hypertension, benign documented in this encounter Additional Health Concerns Assessment Noted Time PHQ-9 Depression Total Score: 0 01/17/20 23 9:22 AM EDT documented as of this encounter Care Teams Purchasing Manager/Sales Relationship Specialty Start Date End Date Tita Wade MD [address] [place] [address] PCP - General Internal Medicine 10/31/23 documented as of this encounter
--- OUTSIDE RECORDS SUMMARY | 2025-04-22 09:40 | XMS_ITS | Clinical Summary ---
Author Organization [employer] Address [address] [place] [address] [address] [place] [address] Care Team Providers Care Physiotherapy Assistant Name Role Phone Tita Wade MD Primary Care Provider [phone] Allergies No known active allergies Medications ammonium [...] cream at bed time. 07/13/20 21 Active naphazoline-phen iramine (Naphcon-A) 0.025-0.3 % ophthalmic solution Inject 1 drop into the eye at bed time. 01/18/20 21 Active naproxen (Naprosyn) 500 MG tablet Take 1 tablet by mouth in the morning and 1 tablet in the evening. 10/24/19 18 Active Sod Fluoride-Potassi um Nitrate (PreviDent 5000 Enamel Protect) 1.1-5 % gel Use with tooth brush twice a day. Do not rinse after use. Do not eat or drink for 1 hour after use. 06/13/20 16 Active Multiple Vitamins-Mineral s (Centrum Silver 50+Women) tablet take 1 tablet by oral route every day in the morning with food 11/28/19 22 Active FeroSul 325 (65 Fe) MG tabletIndication s:Iron deficiency anemia, unspecified iron deficiency anemia type [...] pads check bs by skin route 4-6 times every day 200 each 11/28/19 24 Active Multiple Vitamins-Mineral s (CertaVite Senior/Antioxida nt) tablet TAKE ONE TABLET EVERY MORNING WITH FOOD 30 tablet 12/13/19 24 Active Continuous Glucose Monitor Sup miscIndications: Type 2 diabetes mellitus without complication, with long-term current use of insulin ([facility]) Check BS every 4 hours as needed 2 kit 04/07/20 24 Active insulin pen needle (TechLite Plus Pen [place]) 32G x 4 mm miscIndications: Type 2 diabetes mellitus without complication, with long-term current use of insulin ([facility]) Use as instructed 100 each 5 04/07/20 24 Active lisinopril 40 MG tablet [...] DAILY 100 each 1 08/20/19 25 Active pen needle 31G x 8 mm miscIndications: Type 2 diabetes mellitus without complication, with long-term current use of insulin ([facility]) Use as instructed 100 each 12 08/24/19 25 026 Active insulin glargine (Lantus SoloStar) 100 UNIT/ML pen Inject 42 Units under the skin at bedtime. 15 mL 08/24/19 25 Active Blood Glucose Monitoring Suppl (Blood Glucose Monitor System) w/Device kitIndications:T ype 2 diabetes mellitus without complication, with long-term current use of insulin ([facility]) Check BS every 4 hours as needed 1 kit 09/02/19 25 Active OneTouch Delica Lancets 33G misc check bs by skin route 4-6 times every day 200 each 11 09/08/19 25 Active glucose blood (OneTouch Ultra) [...] Other route 4 times daily. 120 each 11 09/10/19 25 026 Active metFORMIN (Glucophage) 1000 MG tablet TAKE 1 TABLET BY MOUTH IN THE MORNING AND EVENING WITH MEALS 200 tablet 2 11/04/19 25 Active lisinopril 40 MG tablet TAKE ONE TABLET BY MOUTH EVERY DAY 30 tablet 11/24/19 25 Active cyanocobalamin (Vitamin B-12) 1000 MCG/ML injection Inject 1 mL (1,000 mcg) into the muscle every 30 (thirty) days. 10 mL 12/06/19 25 Active amLODIPine (Norvasc) 10 MG tabletIndication s:Benign essential hypertension TAKE ONE TABLET BY MOUTH EVERY MORNING 90 tablet 1 02/17/20 25 Active omeprazole (PriLOSEC) [address] capsule Take 1 capsule (40 mg) by mouth before breakfast. Do not crush or chew. 30 capsule 2 03/09/20 25 026 Active lisinopril 40 MG tablet TAKE ONE TABLET BY MOUTH EVERY DAY 30 tablet 5 03/16/20 25 Active Trulicity 0.75 MG/0.5ML solution auto-injectorInd ications:Type 2 diabetes mellitus without complication, with long-term current use of insulin ([facility]) INJECT 0.75 MG (0.5ML) UNDER THE SKIN 1 TIME PER WEEK 2 mL 3 04/13/20 25 Active lisinopril 40 MG tablet TAKE ONE TABLET BY MOUTH EVERY MORNING 90 tablet 04/14/20 25 Active Trulicity 0.75 MG/0.5ML solution auto-injectorInd ications:Type 2 diabetes mellitus without complication, with long-term current use of insulin (CMS/HCC) INJECT 0.75 MG (0.5ML) UNDER THE SKIN 1 TIME PER WEEK 2 mL 3 12/23/19 25 025 Discontinued Hospital, Clinic, or Other Facility Administered Medication Ordered Dose Route Frequency Start Date End Date Status cyanocobalamin (Vitamin B-12) injection 1,000 mcgIndications:Vitamin B 12 deficiency 1000 mcg IM Every 30 days 12/06/2024 Active Active Problems Problem Noted Date Diagnosed Date [...] Encounters Date Type Department Care Team Description 04/19/2025 Travel 04/14/2025 Refill [facility] [address] [place] [address] Tita Wade MD 04/13/2025 Refill [facility] [address] [place] [address] Tita Wade MD Type 2 diabetes mellitus without complication, with long-term current use of insulin (CMS/HCC) 03/21/2025 11:00 AM EDT Clinical Support [facility] [address] [place] [address] Chayo Moreno RN Other iron deficiency anemia 03/21/2025 Travel 03/18/2025 Telephone [facility] [address] [place] [address] Tita Wade MD No Show 03/16/2025 Refill [facility] [address] [place] [address] Tita Wade MD 03/12/2025 Orders Only GENERIC EXTERNAL DATA DEPARTMENT Provider, Generic External Data 03/09/2025 11:30 AM EDT Office Visit [facility] [address] [place] [address] Tita Wade MD Type 2 diabetes mellitus without complication, with long-term current use of insulin (CMS/HCC) (Primary Dx); Dietary counseling; Exercise counseling; Benign essential hypertension; CREST syndrome (CMS/HCC); Gastroesophageal reflux disease, unspecified whether esophagitis present 03/09/2025 Travel 03/08/2025 Travel 03/08/2025 Telephone [facility] [address] [place] [address] Tita Wade MD Chart Prep 02/16/2025 Refill [facility] [address] [place] [address] Tita Wade MD Benign essential hypertension 02/14/2025 10:30 AM EDT Clinical Support [facility] [address] [facility] [place] [address] Chayo Moreno, RN B12 deficiency 02/14/2025 Travel 02/11/2025 Refill [facility] [address] [place] [address] Tita Wade MD Benign essential hypertension from Last 3 Months Immunizations Immunization Administration Dates Next Due Influenza Injectable Quadriv [...] Reading Time Taken Comments Blood Pressure 112/60 03/09/2025 11:33 AM EDT Pulse 76 03/09/2025 11:33 AM EDT Temperature 36.7 C (98 F) 03/09/2025 11:33 AM EDT Respiratory Rate 20 03/09/2025 11:33 AM EDT Oxygen Saturation 98% 01/27/2024 10:03 AM EDT Inhaled Oxygen Concentration - - Weight 68 kg (150 lb) 03/09/2025 11:33 AM EDT Height 160 cm (5' 3 ) 12/01/2024 11:36 AM EDT Body Mass Index 26.57 12/01/2024 11:36 AM EDT Plan of Treatment Upcoming Encounters Date Type Department Care Team (Late st Contact Info) Description 04/26/2025 3:15 PM EDT Clinical Support [facility] [address] [place] [address] 05/10/2025 9:45 AM EDT Office Visit [facility] [address] [place] [address] Tita Wade MD [address] [place] [address] Health Maintenance Due Date Last Done Comments [...] Screening 01/17/2024 01/16/2023 COVID-19 Vaccine ( season) 2025 08/16/2021, 10/01/2020, 09/11/2020 Influenza Vaccine (#1) 2025 , 05/10/2021, 05/10/2020, Additional history exists Diabetes: Hemoglobin A1C 06/09/2025 025, 12/02/2024, 09/27/2024, Additional history exists Diabetes: Foot Exam 09/27/2025 09/27/2024, 09/27/2024, 07/17/2023, Additional history exists DTaP/Tdap/Td Vaccines (2 - Td or Tdap) 10/04/2025 10/05/2015, 02/11/2005 Diabetes: Urine Protein Screening 12/02/2025 12/02/2024, 04/07/2024, 09/17/2022, Additional history exists Lipid Panel 12/02/2025 12/02/2024, 09/05, 05/30/2021, Additional history exists Mammogram 12/22/2025 12/23/2023, 01/02, 01/11/2021, Additional history exists Tobacco Screening 03/09/2026 03/09/2025 Colonoscopy 11/01/2027 Colorectal Cancer Screening 11/01/2027 Meningococcal [...] on patient's age to complete this topic Meningococcal B Vaccine Aged Out No l onger eligible based on patient's age to complete this topic RSV under 20 months Aged Out No longe r eligible based on patient's age to complete this topic Rotavirus Vaccines Aged Out No longer eligible based on patient's age to complete this topic Procedures Procedure Name Priority Date/Time Associated Diagnosis Comments CBC Routine 03/12/2025 10:40 AM EDT POCT GLYCATED HEMOGLOBIN, TOTAL Routine 03/09/2025 11:46 AM EDT Type 2 diabetes mellitus without complication, with long-term current use of insulin ([facility]/HCC) POCT GLUCOSE Routine 03/09/2025 11:45 AM EDT Type 2 diabetes mellitus without complication, with long-term current use of insulin (CMS/HCC) LIPID PANEL, STANDARD Routine 12/02/2024 10:13 AM EDT CREST syndrome (CMS/HCC) Benign essential hypertension Type 2 diabetes mellitus without complication, with long-term current use of insulin (CMS/HCC) Raynaud's phenomenon without gangrene Osteopenia, unspecified location ALBUMIN, RANDOM URINE W/CREATININE Routine 12/02/2024 10:08 AM EDT CREST syndrome (CMS/HCC) Benign essential hypertension Type 2 diabetes mellitus without complication, with long-term current use of insulin (CMS/HCC) Raynaud's phenomenon without gangrene Osteopenia, unspecified location BI MAMMOGRAM SCREENING TOMOSYNTHESIS BILATERAL Routine 12/23/2023 10:18 AM EDT Breast cancer screening by mammogram PERIODIC ORAL EVALUATION - ESTABLISHED PATIENT Routine [...] Recently Relevant to Health Maintenance Results * (ABNORMAL) CBC (03/12/2025 10:40 AM EDT) White Blood Count 8.8 4.8 - 10.8 X10*3/uL [facility] Red Blood Count 4.52 4.20 - 5.50 X10*6/uL [facility] Hemoglobin 11.4(L) 12.0 - 16.0 g/dl [facility] Hematocrit 36.6(L) 37.0 - 47.0 % [facility] Mean Corpuscular Volume 81.0 80.0 - 98.0 fL [facility] Mean Corpuscular Hemoglobin 25.2(L) 27.0 - 33.0 pg [facility] Mean Corpuscular HGB Conc 31.1 31.0 - 35.0 g/dl [facility] Red Cell Distribution Width 14.1 11.0 - 16.0 % [facility] Platelet Count 244 160 - 400 X10*3/uL [facility] Mean Platelet Volume 10.7 9.4 - 12.3 fL [facility] NRBC Pct Auto 0.0 0.0 - 0.2 /100WBC [facility] NRBC Abs Auto 0.000 0.0 - 0.012 X10*3/uL [facility] 03/12/2025 10:4 0 AM EDT 03/12/2025 10:41 AM EDT us Generic External Data Provider LAB BLOOD ORDERAB LES Final Result [facility] [address] [place] [phone] * (ABNORMAL) POCT HGB A1C (03/09/2025 11:46 AM EDT) Hemoglobin A1C 8.5(A) 4.0 - 5.7 % QC Media Lot # [id number] Lot# Expiration Date 31127 Blood 03/09/2025 11:4 6 AM EDT Tita Wade MD POINT OF CARE TEST ENTER/EDIT ORDERABLES Final Result * (ABNORMAL) POCT Glucose (03/09/2025 11:45 AM EDT) Glucose Blood, POC 227(A) 60 - 200 mg/dL [employer] Media Lot # [id number] Lot# Expiration Date 103,025 Blood Capillary blood specimen / Unknown 03/09/2025 11:45 AM EDT Tita Wade MD POINT OF CARE TEST ENTER/EDIT ORDERABLES Final Result * Lipid Panel, Standard (12/02/2024 10:13 AM EDT) Triglycerides 92 <150 mg/dL [facility] Comment:Desirable Triglyceri de: less than 150 mg/dLBorderline High Triglyceride 150-199 mg/dLHigh Triglyceride: 200-499 mg/dLVery High Triglyceride: greater than or equal to 5OO mg/dL Cholesterol 152 <200 mg/dL [facility] Comment:Desirable Cholestero l: less than 200 mg/dLBorderline High Cholesterol: 200-239 mg/dLHigh Cholesterol: greater than 239 mg/dL LDL Cholesterol Calculated 87 <100 mg/dL [facility] Comment:Desirable LDL: less than 100 mg/dLNear Optimal/Above Optimal LDL: 110- 129 mg/dLBorderline High LDL: 130-159 mg/dLHigh LDL: 160-189 mg/dLVery High LDL: greater than or equal to 190 mg/dL HDL Cholesterol 47 >40 mg/dL [facility] Comment:Desirable HDL: great er than 40 mg/dL Note: This HDL assay may give artificially low results in patients with liver disease. Blood Venous blood specimen / Unknown 12/02/2024 10:13 AM EDT 12/02/2024 10:13 AM EDT Tita Wade MD LAB BLOOD ORDERABLES Final Re sult Performing Organization Address [facility] Co de Phone Number [facility] [address] [place] [address] [phone] * Albumin, Random Urine W/Creatinine (12/02/2024 10:08 AM EDT) Creatinine, Urine 93.48 mg/dL [facility] Microalbumin Urine <5.0 mg/L [facility] Microalbum Creatinine Ratio Ur TNP <30 ug/mg cr [facility] Comment:Unable to calculate albumin/creatinine ratio due to lowmicroalbumin or creatinine result. Urine (Urine, Random) 12/02/2024 10:08 AM EDT 12/02/2024 10:46 AM EDT Tita Wade MD LAB URINE ORDERABLES Final Re sult Performing Organization Address [facility] Co de Phone Number [facility] [address] [place] [address] [phone] * BI Mammogram Screening Tomosynthesis Bilateral (12/23/2023 10:18 AM EDT) Anatomical Region Laterality Modality Breast Bilateral Mammography 12/23/2023 10:1 8 AM EDT Narrative 01/23/2024 7:06 AM EDT [facility] [address] [place] [address] Mammography Report Signed Patient: Brandon Mcgee MR#: [id number] [birth year] : 1960 Acct:[id number] Age/Sex: 63 / F ADM Date: 12/23/23 Loc: [facility] Attending Dr: Tita Wade MD Ordering Physician: Tita Wade MD Results: 1Ne gative Date of Service: 12/23/23 Follow Up: 1 Year From Orig inal Mammogram Procedure(s): MM tomosynthesis screening BI Accession Number(s): [id number] cc: Tita Wade MD EXAMINATION: MM SCREENING [...] in OV> 01/23/24 0703 DD/ 1018 TD/TT: Peritoneal Dialysis Registered Nurse: Procedure Note Donotuseinterpreter, Image - 01/23/2024 [place] [facility] [address] [place] [address] Mammography Report Signed Patient: Brandon McgeeMR#: [id number] 03 : 9Acct:[id number] Age/Sex: 63 / FADM Date: 12/23/23 Loc: [facility] Attending Dr: Tita Wade MD Ordering Physician: Tita Wade MDResults: 1Ne gative Date of Service: 12/23/23Follow Up: 1 Year From Orig ina Mammogram Procedure(s): MM tomosynthesis screening BI Accession Number(s): [id number] cc: Tita Wade MD EXAMINATION: MM SCREENING [...] date for their next mammogram. Dictated By: Betra Lopez MD Signed By: <Electronically signed by Berta Lopez MD in OV> 01/23/24 0703 DD/ 1018 TD/TT: Peritoneal Dialysis Registered Nurse: us Tita Wade MD IMG BI PROCEDURES Final Resul t * THINPREP TIS PAP AND HPV mRNA E6/E7 WITH REFLEX TO HPV 16,18/45 (09/04/2021 9:22 AM EST) Clinical Information: None given [employer] [facility] COMMENT SEE COMMENT [facility] Comment: EXPLANATORY NOTE: The Pap is a screening test for cervical cancer. It is not a diagnostic test and is subject to false negative and false positive results. It is most reliable when a satisfactory sample, regularly obtained, is submitted with relevant clinical findings and history, and when the Pap result is evaluated along with historic and current clinical information. COMMENT: This Pap test has been evaluated with computer assisted technology. [facility] Biology Specialist: SEE COMMENT [facility] Comment: CMG, CT(ASCP) CT screening location: [address] [address] HPV nRNA E6/E7 Not Detected Not Detected [facility] Comment: Methodology: Printing Machine Operator Tape Rules-Mediated Amplification This assay detects E6/E7 viral messenger RNA (mRNA) from 14 high-risk HPV types (16,18,31,33,35,39,45,51,52,56,58,59,66,68). The analytical performance characteristics of this assay have been determined by [employer]. The modifications have not been cleared or approved by the FDA. This assay has been validated pursuant to the CLIA regulations and is used for clinical purposes. For additional information, please refer to http://education.[employer]/faq/IRR876l4 (This link if provided for information/ educational purposes only.) Interpretation/Re sult: Negative for intraepithelial lesion or malignancy. [facility] LMP: C54 [facility] Prev. BX: NONE GIVEN [facility] Prev. PAP: NIL 11/19 [facility] SOURCE: None given [facility] Statement Of Adequacy: SEE COMMENT [facility] Comment: Satisfactory for evaluation. Endocervical/transformation zone component present. 09/04/2021 9:22 AM EST us Crissy Wayne CNM LAB PATHOLOGY ORDERABLES Final Result [facility] [address] from Last 3 Months or Most Recently Relevant to Health Maintenance Insurance [facility] MEDICARE ADVANTAGE HMO [facility] Care Teams Physiotherapy Assistant Relationship Specialty Start Date End Date Tita Wade MD [address] [place] [address] MARY Narvaez [phone] PCP - General Internal Medicine 10/31/23
== END 2025-04-22 08:58 | disposition home or self-care (01) ==
LOC: HO.RESP 08:57
PROVIDERS: PCP Pediatrics; Visit Provider Student in an Organized Health Care Education/Training Program
DX: M34.1 CR(E)ST syndrome (principal)
CPT/HCPCS: 94010; 94640; 94727; 94729

== ENCOUNTER → 2025-04-22 09:35 | Outpatient (BNV) | payer MEDICARE, SELFPAY | PROVIDERS: PCP Pediatrics; Visit Provider Internal Medicine Pulmonary Disease | DX: M34.1 CR(E)ST syndrome (principal) | CPT/HCPCS: 94060; 94727; 94729 ==

== ENCOUNTER 2025-05-10 10:24 | Outpatient (REF) | payer MEDICARE, SELFPAY ==
--- OUTSIDE RECORDS SUMMARY | 2025-05-10 09:45 | XMS_ITS | Encounter Summary ---
Author Organization [email or web address] Address [address] [place] [id number] Care Team Providers Care Assistant At Surgery Name Role Phone Tita Wade MD Primary Care Provider [phone] Reason for Referral * Imaging (Routine) - Authorized Specialty Diagnoses / Procedures Referred By Contac t Referred To Contact Cardiology Diagnoses Toe cyanosis Procedures VASC Ankle Brachial Index blaine/ Without Exercise Tita Wade MD [address] [place] [address] Phone: tel: fax: [address] Phone: tel: fax: Referral ID Status Reason Start Date Expiration Date Visits Requested Visits Authorized [id number] Authorized Perform Procedure 05/10/2025 05/10/2026 1 1 Encounter Details Date Type Department Care Team ([facility] Contact Info) Description 05/10/2025 9:45 AM EDT Office Visit [facility] [address] [place], [place] [id number] Tita Wade MD [address], [place] [id number] Toe cyanosis (Primary Dx); Type 2 diabetes mellitus without complication, with long-term current use of insulin (HCC); Encounter for immunization; Hypercholesterolemia; Benign essential hypertension; Raynaud's phenomenon without gangrene Social History Tobacco Use Types Packs/Day Years Used Date Smoking Tobacco: Never Passive Smoke Exposure: Never Smokeless Tobacco: Never Alcohol Use Standard Drinks/Week Comments Never 0 (1 standard drink = 0.6 oz pur e alcohol) Depression Answer Date Recorded Patient Health Questionnaire-9 Score 0 05/10/2025 Patient Health Questionnaire-9 Score 0 05/10/2025 Last PHQ-9: Questionnaire Data Not on file 1 Housing Stability Answer Date Recorded What is your housing situation today? I have julio cesar smith 05/10/[address] you li ve. Do you have problems with any of the following? None of the above 05/10/2025 Food Insecurity Answer Date Recorded Within the past 12 months, y ou worried that your food would run out before you got money to buy more: Never True 05/10/2025 Within the past 12 months,th e food you bought just didn't last and you didn't have enough money to get more: Never True 02/2025 Transportation Answer Date Recorded In the past 12 months, has l ack of transportation kept you from medical appts, meetings, work or from getting things needed for daily living? No 05/10/2025 Utilities Answer Date Recorded In the past 12 months, has t he electric, gas, oil or water company threatened to shut off services in your home? No 05/10/2025 Depression Answer Date Recorded Patient Health Questionnaire-2 Score 0 05/10/2025 Internet Access Answer Date Recorded Internet Access Q1 Yes 05/10/2025 Internet Access Q2 Not on file 05/10/2025 Comments Unknown Sex and Gender Information Value Date Recorded Sex Assigned at Female 06/03/2022 10:18 AM EDT Legal Sex Female 10:18 AM EDT Gender Identity Female 06/03/2022 10:18 AM EDT Sexual Orientation Straight 01/08/2023 9: 11 AM EDT documented as of this encounter Last Filed Vital Signs Vital Sign Reading Time Taken Comments Blood Pressure 128/76 05/10/2025 9:33 AM EDT Pulse 80 05/10/2025 9:33 AM EDT Temperature 36.4 C (97.6 F) 05/10/2025 9:33 AM EDT Respiratory Rate 20 05/10/2025 9:33 AM EDT Oxygen Saturation - - Inhaled Oxygen Concentration - - Weight 68 kg (150 lb) 05/10/2025 9:33 AM EDT Height - - Body Mass Index 26.57 12/01/2024 11:36 AM EDT documented in this encounter Functional Status * Over the past 2 weeks, how often have you been bothered by any of the following problems? Question Answer Date of Assessment Author Patient Health Questionnaire -2 Score 0 05/10/2025 9:46 AM CORINNET Kylah Soto [place] * Little interest or pleasure in doing things Answer Date of Assessment Author Not at all 05/10/2025 9:46 AM Marta Licona MA * Feeling down, depressed, or hopeless Answer Date of Assessment Author Not at all 05/10/2025 9:46 AM Marta Licona MA * Trouble falling or staying asleep, or sleeping too much Answer Date of Assessment Author Not at all 05/10/2025 9:46 AM Marta Licona MA * Feeling tired or having little energy Answer Date of Assessment Author Not at all 05/10/2025 9:46 AM Marta Licona MA * Poor appetite or overeating Answer Date of Assessment Author Not at all 05/10/2025 9:46 AM Marta Licona MA * Feeling bad about yourself - or that you are a failure or have let yourself or your family down Answer Date of Assessment Author Not at all 05/10/2025 9:46 AM Marta Licona MA * Trouble concentrating on things, such as reading the newspaper or watching television Answer Date of Assessment Author Not at all 05/10/2025 9:46 AM Marta Licona MA * Moving or speaking so slowly that other people could have noticed? Or the opposite - being so fidgety or restless that you have been moving around a lot more than usual. Answer Date of Assessment Author Not at all 05/10/2025 9:46 AM Marta Licona MA * Thoughts that you would be better off or hurting yourself in some way Answer Date of Assessment Author Not at all 05/10/2025 9:46 AM Marta Licona MA * Patient Health Questionnaire-9 Score Answer Date of Assessment Author 0 05/10/2025 9:46 AM Marta Licona MA documented as of this encounter Progress Notes * Tita Wade MD - 05/10/2025 9:45 AM EDT Subjective Patient ID: Brandon Mcgee is a 64 y.o. female who presents for follow-up. Brandon is a 64-year-old female patient of mine with type 2 diabetes, Raynaud's phenomenon and crest syndrome, hypertension, dyslipidemia etc. here for follow- up. Her fasting blood sugars have been much better controlled. Appetite is still lowered on low-dose of Trulicity. Compliant with Lantus. Diet and metformin. Her eye exam is up-to-date. Patient complains of right pinky toe pain and slight er ythema of her toe. Denies fevers or chills or history of trauma to it. This started about 2 days ago. Patient had fasting labs done in December which were normal except for low vitamin B-12 for which she is now receiving monthly B12 injections. Patient feels these have been helpful with her energy level. No other complaints today. Review of Systems Constitutional: Negative for activity change, chills, fever and unexpected weight change. Respiratory: Negative for cough, shortness of breath and wheezing. Cardiovascular: Negative for chest pain, palpitations and leg swelling. Gastrointestinal: Negative for abdominal pain and blood in stool. Endocrine: Negative for polydipsia and polyuria. Genitourinary: Negative for decreased urine volume, difficulty urinating, dysuria and hematuria. Musculoskeletal: Negative for arthralgias and gait problem. Skin: Negative for color change and rash. Neurological: Negative for dizziness and headaches. Hematological: Negative for adenopathy. Does not bruise/bleed easily. Psychiatric/Behavioral: Negative for behavioral problems, dysphoric mood, hallucinations, sleep disturbance and suicidal ideas. The patient is not nervous/anxious. Objective BP 128/76 (BP Location: Left arm, Patient Position: Sitting, BP Cuff Size: Adult) Pulse80 Temp 97.6 ??F (36.4 ??C) (Oral) Resp 20 Wt 150 lb (68 kg) BMI 26.57 kg/m?? Physical Exam Vitals reviewed. Constitutional: General: She is not in acute [...] Abdominal: Palpations: Abdomen is soft. Musculoskeletal: General: Normal range of motion. Cervical back: Normal range of motion. Right lower leg: No edema. Left lower leg: No edema. Skin: General: Skin is warm. Capillary Refill: Capillary refill takes less than 2 seconds. Findings: Erythema present. No rash. Comments: Right pinky toe slight erythema, not warm to touch. No wounds or ulcerations noticed. Neurological: General: No focal deficit present. Mental Status: She is alert and oriented to person, place, and time. Psychiatric: Mood and Affect: Mood normal. Behavior: Behavior normal. Thought Content: Thought content normal. Judgment: Judgment normal. Assessment/Plan Diagnoses and all orders for this visit: Toe cyanosis Comments: From Raynaud's/crest syndrome? Check labs as well as an ankle-brachial index, keep warm socks on. Denies history of trauma of pinky toe. Call with results. Orders: - VASC Ankle Brachial Index blaine/ Without Exercise; Future Type 2 diabetes mellitus without complication, with long-term current use of insulin (HCC) Comments: Patient fasting blood sugar 118 today, continue Lantus, metformin and Trulicity as usual, recheck A1c next visit. IEyeexam, vaccines and labs up-to-date. Orders: - POCT Glucose - C-reactive Protein; Future - Basic Metabolic Panel, Fasting; Future Encounter for immunization Comments: Flu vaccine received today when a complications. Orders: - FLU VACCINE TRIVALENT HIGH DOSE [id number] (Fluzone) 65 yrs + Hypercholesterolemia Comments: Patient lipids at goal. Last checked in December of this year. Benign essential hypertension Comments: BP stable on amlodipine and lisinopril. Continue with no changes. Raynaud's phenomenon without gangrene Comments: Patient sees rheumatology at [facility] for crest-like syndrome and raynaud. Continue amlodipine and follow-up in August as scheduled. documented in this encounter Plan of Treatment Upcoming Encounters Date Type Department Care Team (Late st Contact Info) Description 05/24/2025 3:15 PM EDT Clinical Support [facility] [address] [place] [address] Scheduled Orders Name Type Priority Associated Diagnoses Orde r Schedule C-reactive Protein Lab Routine Type 2 diabetes mellitus without complication, with long-term current use of insulin (HCC) Expected: 05/10/2025 (Approximate), Expires: 05/10/2026 Basic Metabolic Panel, Fasting Lab Routine Type 2 diabetes mellitus without complication, with long-term current use of insulin (HCC) Expected: 05/10/2025 (Approximate), Expires: 05/10/2026 documented as of this encounter Procedures Procedure Name Priority Date/Time Associated Diagnosis Comments POCT GLUCOSE Routine 05/10/2025 9:45 AM EDT Type 2 diabetes mellitus without complication, with long-term current use of insulin ([facility]) documented in this encounter Results * POCT Glucose (05/10/2025 9:45 AM EDT) [facility] Glucose Blood, POC 118 60 - 200 mg/dL Blood Capillary blood specimen / Unknown 05/10/2025 9:45 AM EDT us Tita Wade MD POINT OF CARE TEST ENTER/EDIT ORDERABLES Final Result documented in this encounter Visit Diagnoses Diagnosis Toe cyanosis- Primary Cyanosis Type 2 diabetes mellitus without complication, with long-term current use of insulin (HCC) Encounter for immunization Hypercholesterolemia Pure hypercholesterolemia Benign essential hypertension Essential hypertension, benign Raynaud's phenomenon without gangrene documented in this encounter Additional Health Concerns Assessment Noted Time PHQ-9 Depression Total Score: 0 05/10/20 25 9:46 AM EDT documented as of this encounter Care Teams Assistant At Surgery Relationship Specialty Start Date End Date Tita Wade MD [address] [place] [address] PCP - General Internal Medicine 10/31/23 documented as of this encounter
--- OUTSIDE RECORDS SUMMARY | 2025-05-10 12:29 | XMS_ITS | Clinical Summary ---
Author Organization [employer] Address [address] [place] [address] 7t [place] [address] Care Team Providers Care Hardboard Grinder Name Role Phone Tita Wade MD Primary Care Provider [phone] Allergies No known active allergies Medications ammonium [...] TAKE ONE TABLET EVERY MORNING 30 tablet 11/11/19 24 Active docusate sodium (Colace) 100 [...] complication, with long-term current use of insulin ([facility]) Check BS every 4 hours as needed 2 kit 04/07/20 24 Active insulin pen needle (TechLite Plus Pen [place]) 32G x 4 mm miscIndications :Type 2 diabetes mellitus without complication, with long-term current use of insulin (HCC) Use as instructed 100 each 04/07/20 24 [...] % pads USE TWO DAILY 100 each 08/20/19 25 Active insulin glargine (Lantus SoloStar) 100 UNIT/ML pen Inject 42 Units under the skin at bedtime. 15 mL 11 08/24/19 25 Active Blood Glucose Monitoring Suppl (Blood Glucose Monitor System) w/Device kitIndications: Type 2 diabetes mellitus without complication, with long-term current use of insulin ([facility]) Check BS every 4 hours as needed [...] 12/06/19 25 Active amLODIPine (Norvasc) 10 MG tabletIndicatio ns:Benign essential hypertension TAKE ONE TABLET BY MOUTH EVERY MORNING 90 tablet 1 02/17/20 25 Active omeprazole (PriLOSEC) [address] capsule Take 1 capsule (40 mg) by mouth before breakfast. Do not crush or chew. 30 capsule 2 03/09/20 25 026 Active lisinopril 40 MG tablet TAKE ONE TABLET BY MOUTH EVERY DAY 30 tablet 5 03/16/20 25 Active Trulicity 0.75 MG/0.5ML solution auto-injectorIn dications:Type 2 diabetes mellitus without complication, with long-term current use of insulin ([facility]) INJECT 0.75 MG (0.5ML) UNDER THE SKIN 1 TIME PER WEEK 2 mL 3 04/13/20 25 Active lisinopril 40 MG tablet TAKE ONE TABLET BY MOUTH EVERY MORNING 90 tablet 04/14/20 25 Active pen needle 31G x 8 mm miscIndications :Type 2 diabetes mellitus without complication, with long-term current use of insulin (HCC) Use as instructed 100 each 12 04/22/20 25 026 Active pen needle 31G x 8 mm miscIndications :Type 2 diabetes mellitus without complication, with long-term current use of insulin (HCC) Use as instructed 100 each 12 08/24/19 25 025 Discontinued(R eorder (will not trigger notification to Pharmacy)) Trulicity 0.75 MG/0.5ML solution auto-injectorIn dications:Type 2 diabetes mellitus without complication, with long-term current use of insulin (HCC) INJECT 0.75 MG (0.5ML) UNDER THE SKIN [...] current use of insulin 11/26/2023 CREST syndrome (CMS/HCC) 02/19/2023 Iron deficiency anemia 01/16/2023 Assessment & [...] Encounters Date Type Department Care Team Description 05/10/2025 9:45 AM EDT Office Visit [facility] [address] [place] [address] Tita Wade MD Toe cyanosis (Primary Dx); Type 2 diabetes mellitus without complication, with long-term current use of insulin ([facility]); Encounter for immunization; Hypercholesterolemia ; Benign essential hypertension; Raynaud's phenomenon without gangrene 05/10/2025 Travel 05/09/2025 Telephone [facility] [address] [place] [address] Tita Wade MD Chart Prep 04/26/2025 3:15 PM EDT Clinical Support [facility] [address] [place] [address] Chayo Moreno RN Other iron deficiency anemia [D50.8] 04/26/2025 Travel 04/22/2025 Telephone [facility] [address] [place] [address] Tita Wade MD 04/19/2025 Travel 04/14/2025 Refill [facility] [address] [place] [address] Tita Wade MD 04/13/2025 Refill [facility] [address] [place] [address] Tita Wade MD Type 2 diabetes mellitus without complication, with long-term current use of insulin ([facility]) 03/21/2025 11:00 AM EDT Clinical Support [facility] [address] [place] [address] Chayo Moreno, RN Other iron deficiency anemia 03/21/2025 Travel 03/18/2025 Telephone [facility] [address] [place] [address] Tita Wade MD No Show 03/16/2025 Refill [facility] [address] [place] [address] Tita Wade MD 03/12/2025 Orders Only GENERIC EXTERNAL DATA DEPARTMENT Provider, Generic External Data 03/09/2025 11:30 AM EDT Office Visit [facility] [address] [place] [address] Tita Wade MD Type 2 diabetes mellitus without complication, with long-term current use of insulin ([facility]) (Primary Dx); Dietary counseling; Exercise counseling; Benign essential hypertension; CREST syndrome ([facility]); Gastroesophageal reflux disease, unspecified whether esophagitis present 03/09/2025 Travel 03/08/2025 Travel 03/08/2025 Telephone [facility] [address] [place] [address] Tita Wade MD Chart Prep 02/16/2025 Refill [facility] [address] [place] [address] Tita Wade MD Benign essential hypertension 02/14/2025 10:30 AM EDT Clinical Support [facility] [address] [place] [address] Chayo Moreno RN B12 deficiency 02/14/2025 Travel 02/11/2025 Refill [facility] [address] [place] [address] Tita Wade MD Benign essential hypertension from Last 3 Months Immunizations Immunization Administration Dates Next Due Influenza Injectable Quadriv alant Preservative Free IIV4 MDCK 06/03/2022,05/10/2020 Influenza injectable quadriv alent IIV4 with preservative 06/17/2019,05/01/2017,05/08/2016 Influenza injectable quadriv alent preservative free 05/10/2021,05/16/2015 Influenza, High Dose Seasona l, Preservative Free 05/10/2025 Influenza, IIV3, injectable 05/06/2014 Influenza, Split (incl. [...] 20 05/10/2025 9:33 AM EDT Oxygen Saturation 98% 01/27/2024 10:03 AM EDT Inhaled Oxygen Concentration - - Weight 68 kg (150 lb) 05/10/2025 9:33 AM EDT Height 160 cm (5' 3 ) 12/01/2024 11:36 AM EDT Body Mass Index 26.57 12/01/2024 11:36 AM EDT Plan of Treatment Upcoming Encounters Date Type Department Care Team (Late st Contact Info) Description 05/24/2025 3:15 PM EDT Clinical Support [facility] [address] [place] [address] Health Maintenance Due Date Last Done Comments CT Colonography 1958 FIT DNA/Cologuard 1960 FIT 1960 FOBT 1960 Sigmoidoscopy 1960 Eye Exam 1968 Hepatitis C Screening 1976 Zoster Vaccines (1 [...] 01/09/20 23, 01/10/2022, 10/09/2020, Additional history exists COVID-19 Vaccine ( season) 2025 08/16/2021, 10/01/2020, 09/11/2020 Diabetes: Hemoglobin A1C 06/09/2025 025, 12/02/2024, 09/27/2024, Additional history exists Diabetes: Foot Exam 09/27/2025 09/27/2024, 09/27/2024, 07/17/2023, Additional history exists DTaP/Tdap/Td Vaccines (2 - Td or Tdap) 10/04/2025 10/05/2015, 02/11/2005 Diabetes: Urine Protein Screening 12/02/2025 12/02/2024, 04/07/2024, 09/17/2022, Additional history exists Lipid Panel 12/02/2025 12/02/2024, 09/05, 05/30/2021, Additional history exists Mammogram 12/22/2025 12/23/2023, 01/02, 01/11/2021, Additional history exists Alcohol/Substance Use Screening 05/10/2026 05/10/2025 Depression Screening 05/10/2026 05/10/2025, 05/10/20 25 SDOH Screening 05/10/2026 05/10/2025 Tobacco Screening 05/10/2026 05/10/2025 Colonoscopy 11/01/2027 Colorectal Cancer Screening 11/01/2027 Meningococcal Vaccine Aged Out 01/30/2017 No jermain marco a eligible based on patient's age to complete this topic Cervical Cancer Screening Discontinued HPV/Cotest Discontinued 09/04/2021 Pap Smear Discontinued 09/04/2021 Influenza Vaccine Completed 05/10/2025, , 05/10/2021, Additional history exists HIB Vaccines Aged Out No longer eligi [...] with long-term current use of insulin (HCC) CBC Routine 03/12/2025 10:40 AM EDT POCT GLYCATED HEMOGLOBIN, TOTAL Routine 03/09/2025 11:46 AM EDT Type 2 diabetes mellitus without complication, with long-term current use of insulin (CMS/HCC) POCT GLUCOSE Routine 03/09/2025 11:45 AM EDT [...] to Health Maintenance Results * POCT Glucose (05/10/2025 9:45 AM EDT) Only the most recent of2 resultswithin the time period is included. Glucose Blood, POC 118 60 - 200 mg/dL Blood Capillary blood specimen / Unknown 05/10/2025 9:45 AM EDT us Tita Wade MD POINT OF CARE TEST ENTER/EDIT ORDERABLES Final Result * (ABNORMAL) CBC (03/12/2025 10:40 AM EDT) [facility] White Blood Count 8.8 4.8 - 10.8 X10*3/uL [facility] Red Blood Count 4.52 4.20 - 5.50 X10*6/uL [facility] Hemoglobin 11.4(L) 12.0 - 16.0 g/dl [facility] Hematocrit 36.6(L) 37.0 - 47.0 % [facility] Mean Corpuscular Volume 81.0 80.0 - 98.0 fL [facility] Mean Corpuscular Hemoglobin 25.2(L) 27.0 - 33.0 pg [facility] Mean Corpuscular HGB Conc 31.1 31.0 - 35.0 g/dl [facility] Red Cell Distribution Width 14.1 11.0 - 16.0 % [facility] Platelet Count 244 160 - 400 X10*3/uL [facility] Mean Platelet Volume 10.7 9.4 - 12.3 fL [facility] NRBC Pct Auto 0.0 0.0 - 0.2 /100WBC [facility] NRBC Abs Auto 0.000 0.0 - 0.012 X10*3/uL [facility] 03/12/2025 10:4 0 AM EDT 03/12/2025 10:41 AM EDT us Generic External Data Provider LAB BLOOD ORDERAB LES Final Result [facility] [address] [place] [address] [phone] * (ABNORMAL) POCT HGB A1C (03/09/2025 11:46 AM EDT) Hemoglobin A1C 8.5(A) 4.0 - 5.7 % QC Media Lot # [id number] Lot# Expiration Date Blood 03/09/2025 11:4 6 AM EDT Tita Wade MD POINT OF CARE TEST ENTER/EDIT ORDERABLES Final Result * Lipid Panel, Standard (12/02/2024 10:13 AM EDT) Triglycerides 92 <150 mg/dL [facility] Comment:Desirable Triglyceri de: less than 150 mg/dLBorderline High Triglyceride 150-199 mg/dLHigh Triglyceride: 200-499 mg/dLVery High Triglyceride: greater than or equal to 5OO mg/dL Cholesterol 152 <200 mg/dL [facility] Comment:Desirable Cholestero l: less than 200 mg/dLBorderline High Cholesterol: 200-239 mg/dLHigh Cholesterol: greater than 239 mg/dL LDL Cholesterol Calculated 87 <100 mg/dL [facility] Comment:Desirable LDL: less than 100 mg/dLNear Optimal/Above Optimal LDL: 110- 129 mg/dLBorderline High LDL: 130-159 mg/dLHigh LDL: 160-189 mg/dLVery High LDL: greater than or equal to 190 mg/dL HDL Cholesterol 47 >40 mg/dL [facility] Comment:Desirable HDL: great er than 40 mg/dL Note: This HDL assay may give artificially low results in patients with liver disease. Blood Venous blood specimen / Unknown 12/02/2024 10:13 AM EDT 12/02/2024 10:13 AM EDT Tita Wade MD LAB BLOOD ORDERABLES Final Re sult [facility] [address] [place] [phone] * Albumin, Random Urine W/Creatinine (12/02/2024 10:08 AM EDT) Creatinine, Urine 93.48 mg/dL [facility] Microalbumin Urine <5.0 mg/L [facility] Microalbum Creatinine Ratio Ur TNP <30 ug/mg cr [facility] Comment:Unable to calculate albumin/creatinine ratio due to lowmicroalbumin or creatinine result. Urine (Urine, Random) 12/02/2024 10:08 AM EDT 12/02/2024 10:46 AM EDT us Tita Wade MD LAB URINE ORDERABLES Final Re sult [facility] [address] [place] [phone] * BI Mammogram Screening Tomosynthesis Bilateral (12/23/2023 10:18 AM EDT) Anatomical Region Laterality Modality Breast Bilateral Mammography 12/23/2023 10:1 8 AM EDT Narrative 01/23/2024 7:06 AM EDT [facility] [address] [place] [address] Mammography Report Signed Patient: Brandon Mcgee MR#: [id number] [birth year] : 1960 Acct:[id number] Age/Sex: 63 / F ADM Date: 12/23/23 Loc: HO.MAMMO Attending Dr: Tita Wade MD Ordering Physician: Tita Wade MD Results: 1Ne gative Date of Service: 12/23/23 Follow Up: 1 Year From Orig ina Mammogram Procedure(s): MM tomosynthesis screening BI Accession Number(s): [id number] cc: Tita Wade MD EXAMINATION: MM SCREENING [...] in OV> 01/23/24 0703 DD/ 1018 TD/TT: Tearer: Procedure Note Donotuseinterpreter, Image - 01/23/2024 [facility] [address] [place] [address] Mammography Report Signed Patient: Brandon McgeeMR#: [id number] 03 : 9Acct:[id number] Age/Sex: 63 / FADM Date: 12/23/23 Loc: HO.MAMMO Attending Dr: Tita Wade MD Ordering Physician: Tita Wade MDResults: 1Ne gative Date of Service: 12/23/23Follow Up: 1 Year From [facility] Mammogram Procedure(s): MM tomosynthesis screening BI Accession Number(s): [id number] cc: Tita Wade MD EXAMINATION: MM SCREENING [...] in OV> 01/23/24 0703 DD/ 1018 TD/TT: Tearer: us Tita Wade MD IM BI PROCEDURES Final Resul t * THINPREP TIS PAP AND HPV mRNA E6/E7 WITH REFLEX TO HPV 16,18/45 (09/04/2021 9:22 AM EST) Clinical Information: None given [facility] COMMENT SEE COMMENT FOUNDATI ON [...] been evaluated with computer assisted technology. [facility] [employer] Attendant: SEE COMMENT [facility] Comment: CMG, CT(ASCP) CT screening location: [address] [address] HPV nRNA E6/E7 Not Detected Not Detected [facility] Comment: Methodology: Patient Admitting Representative-Mediated Amplification This assay detects E6/E7 viral messenger RNA (mRNA) from 14 high-risk HPV types (16,18,31,33,35,39,45,51,52,56,58,59,66,68). The analytical performance characteristics of this assay have been determined by [employer]. The modifications have not been cleared or approved by the FDA. This assay has been validated pursuant to the CLIA regulations and is used for clinical purposes. For additional information, please refer to http://education.[employer]/faq/DNT679g1 (This link if provided for information/ educational [...] Wayne CNM LAB PATHOLOGY ORDERABLES Final Result Performing Organization Address City/State/[facility] Co de Phone Number [facility] [address] from Last 3 Months or Most Recently Relevant to Health Maintenance Insurance [facility] MEDICARE ADVANTAGE HMO [facility] Care Teams Hardboard Grinder Relationship Specialty Start Date End Date Tita Wade MD [address] [place] [address] MARY Narvaez [address] PCP - General Internal Medicine 10/31/23
--- OUTSIDE RECORDS SUMMARY | 2025-05-10 12:29 | XMS_ITS | Encounter Summary ---
Author Organization [employer] Address [address] [place] [address] 7 [place] [address] Care Team Providers Care Revenue Inspector Name Role Phone Tita Wade MD Primary Care Provider [phone] Reason for Visit * Reason Onset Date Comments Chart Prep 05/09/2025 Encounter Details Date Type Department Care Team ([facility] Contact Info) Description 05/09/2025 Telephone [facility] [address] [place], [place] [phone] Tita Wade MD [address] [place], [place] [phone] Chart Prep Social History Tobacco Use Types Packs/Day Years [...] the past 12 months, has t he [employer], gas, oil or water company threatened to [...] encounter Miscellaneous Notes * Telephone Encounter - Marta Soto [place] - 05/09/2025 9:11 AM EDT Chart Prep Labs: done Images: done Referrals: complete Vaccines due: Covid, Flu, PCV20, RSV, and Zoster Screenings: eye exam Overdue care gaps: Glucose, SBIRT, SDOH, PHQ-9, and Oral health screening documented in this encounter Plan of Treatment Upcoming Encounters Date Type Department Care Team (Late st Contact Info) Description 05/24/2025 3:15 PM EDT Clinical Support [facility] [address] [place] [address] documented as of this encounter Visit Diagnoses Not on filedocumented in this encounter Additional Health Concerns Assessment Noted Time PHQ-9 Depression Total Score: 0 01/17/20 23 9:22 AM EDT documented as of this encounter Care Teams Revenue Inspector Relationship Specialty Start Date End Date Tita Wade MD [address] [place] [address] PCP - General Internal Medicine 10/31/23 documented as of this encounter
--- OUTSIDE RECORDS SUMMARY | 2025-05-10 12:29 | XMS_ITS | Encounter Summary ---
Author Organization [employer] Address [address] [place] [address] 7 [place] [address] Care Team Providers Care Solution Spec Name Role Phone Jarod Santiago MD Primary Care Prov ider Tita Wade MD Primary Care Provider [phone] Encounter Details Date Type Department Care Team ([facility] st Contact Info) Description 10/01/2022 Orders Only [facility] [address] [place], [place] [phone] Crescencio Hein MD [address] [place], [place] [phone] Benign essential hypertension Social History Tobacco Use [...] Description 05/24/2025 3:15 PM EDT Clinical Support [facility] [address] [place] [address] documented as of this encounter Visit Diagnoses Diagnosis Benign essential hypertension Essential hypertension, benign documented in this encounter Care Teams Solution Spec Relationship Specialty Start Date End Date Jarod Santiago MD [address] [place] [address] PCP - General Internal Medicine 06/13/23 10/30/23 Tita Wade MD [address] [place] [address] PCP - General Internal Medicine 10/31/23 documented as of this encounter
--- OUTSIDE RECORDS SUMMARY | 2025-05-10 12:29 | XMS_ITS | Encounter Summary ---
Author Organization [employer] Address [address] [facility] 7 [place] [address] Care Team Providers Care Insurance Territory Manager Name Role Phone Tita Wade MD Primary Care Provider [phone] Reason for Visit * Reason Comments Med Refill Encounter Details Date Type Department Care Team (Late st Contact Info) Description 08/29/2024 Refill [facility] MED[facility] [address] [place], [place] [phone] Tita Wade MD [address] [place], [place] [phone] Social History Tobacco Use Types Packs/Day Years [...] Description 05/24/2025 3:15 PM EDT Clinical Support [facility]S [address] [place] [address] documented as of this encounter Visit Diagnoses Not on filedocumented in this encounter Additional Health Concerns Assessment Noted Time PHQ-9 Depression Total Score: 0 01/17/20 23 9:22 AM EDT documented as of this encounter Care Teams Insurance Territory Manager Relationship Specialty Start Date End Date Tita Wade MD [address] [place] [address] PCP - General Internal Medicine 10/31/23 documented as of this encounter
--- OUTSIDE RECORDS SUMMARY | 2025-05-10 12:29 | XMS_ITS | Encounter Summary ---
Author Organization [employer] Address [address] [facility] 7 [place] [address] Care Team Providers Care Contact Center Manager Name Role Phone Tita Wade MD Primary Care Provider [phone] Reason for Visit * Reason Onset Date Comments Medication Question 04/07/2024 Encounter Details Date Type Department Care Team (Late st Contact Info) Description 04/07/2024 Telephone [facility] MEDICINE [address] [place], [place] [phone] Tita Wade MD [address] [place], [place] [phone] Medication Question Social History Tobacco Use Types [...] Description 05/24/2025 3:15 PM EDT Clinical Support [facility] [address] [place] [address] documented as of this encounter Visit Diagnoses Diagnosis Type 2 diabetes mellitus without complication, with long-term current use of insulin (HCC) documented in this encounter Additional Health Concerns Assessment Noted Time PHQ-9 Depression Total Score: 0 01/17/20 23 9:22 AM EDT documented as of this encounter Care Teams Contact Center Manager Relationship Specialty Start Date End Date Tita Wade MD [address] [place] [address] PCP - General Internal Medicine 10/31/23 documented as of this encounter
--- OUTSIDE RECORDS SUMMARY | 2025-05-10 12:29 | XMS_ITS | Encounter Summary ---
Author Organization [employer] Address [address] [facility] 7 [place] [address] Care Team Providers Care Highway Safety Engineer Name Role Phone Tita Wade MD Primary Care Provider [phone] Reason for Visit * Reason Comments Med Refill Encounter Details Date Type Department Care Team ([facility] Contact Info) Description 02/11/2025 Refill [facility] & PEDS [address] [place], [place] [phone] Tita Wade MD [address] [place], [place] [phone] Benign essential hypertension Social History Tobacco Use [...] Upcoming Encounters Date Type Department Care Team ([facility] st Contact Info) Description 05/24/2025 3:15 PM EDT Clinical Support [facility] [address] [place] [address] documented as of this encounter Visit Diagnoses Diagnosis Benign essential hypertension Essential hypertension, benign documented in this encounter Additional Health Concerns Assessment Noted Time PHQ-9 Depression Total Score: 0 01/17/20 23 9:22 AM EDT documented as of this encounter Care Teams Highway Safety Engineer Relationship Specialty Start Date End Date Tita Wade MD [address] [place] [address] PCP - General Internal Medicine 10/31/23 documented as of this encounter
--- OUTSIDE RECORDS SUMMARY | 2025-05-10 12:29 | XMS_ITS | Encounter Summary ---
Author Organization [employer] Address [address] [facility] [address] [place] [address] Care Team Providers Care Test Fixture Assembler Name Role Phone Tita Wade MD Primary Care Provider [phone] Encounter Details Date Type Department Care Team (Latest Contact Info) Description 05/10/2025 Travel Social History Tobacco Use Types Packs/Day [...] AM EDT documented as of this encounter Functional Status * Over the past 2 weeks, how often have you been bothered by any of the following problems? Question Answer Date of Assessment Author Patient Health Questionnaire -2 Score 0 05/10/2025 9:46 AM Kylah Licona MA * Little interest or pleasure in [...] Author Not at all 05/10/2025 9:46 AM EDT Marta Soto MA * Moving or speaking so slowly that other people could have noticed? Or the opposite - being so fidgety or restless that you have been moving around a lot more than usual. Answer Date of Assessment Author Not at all 05/10/2025 9:46 AM EDT Marta Soto MA * Thoughts that you would be better off or hurting yourself in some way Answer Date of Assessment Author Not at all 05/10/2025 9:46 AM EDT Marta Soto MA * Patient Health Questionnaire-9 Score Answer Date of Assessment Author 0 05/10/2025 9:46 AM Marta Licona MA documented as of this encounter Plan of Treatment Upcoming Encounters Date Type Department Care Team (Late st Contact Info) Description 05/24/2025 3:15 PM EDT Clinical Support [facility] MED & PEDS [address] [place] [address] documented as of this encounter Visit Diagnoses Not on filedocumented in this encounter Additional Health Concerns Assessment Noted Time PHQ-9 Depression Total Score: 0 05/10/20 25 9:46 AM EDT documented as of this encounter Care Teams Test Fixture Assembler Relationship Specialty Start Date End Date Tita Wade MD [address] [place] [address] PCP - General Internal Medicine 10/31/23 documented as of this encounter
--- OUTSIDE RECORDS SUMMARY | 2025-05-10 12:29 | XMS_ITS | Encounter Summary ---
Author Organization [employer] Address [address] [facility] 7[address] [place] [address] Care Team Providers Care Director Global Name Role Phone Jarod Santiago MD Primary Care Prov ider Tita Wade MD Primary Care Provider [phone] Encounter Details Date Type Department Care Team (Late st Contact Info) Description 03/04/2023 Orders Only [facility] MEDICINE [address] [place], [place] [phone] Danielle Recinos LPN Social History Tobacco Use [...] Description 05/24/2025 3:15 PM EDT Clinical Support [facility] [address] [place] [address] documented as of this encounter Visit Diagnoses Not on filedocumented in this encounter Additional Health Concerns Assessment Noted Time PHQ-9 Depression Total Score: 0 01/17/20 23 9:22 AM EDT documented as of this encounter Care Teams Director Global Relationship Specialty Start Date End Date Jarod Santiago MD [address] [place] [address] PCP - General Internal Medicine 06/13/23 10/30/23 Tita Wade MD [address] [place] [address] PCP - General Internal Medicine 10/31/23 documented as of this encounter
--- OUTSIDE RECORDS SUMMARY | 2025-05-10 12:29 | XMS_ITS | Encounter Summary ---
Author Organization [facility] Address [address] [place] [address] 7 [place] [address] Care Team Providers Care Elementary Education Tutor Name Role Phone Jarod Santiago MD Primary Care Prov ider Tita Wade MD Primary Care Provider [phone] Encounter Details Date Type Department Care Team (Latest Contact Info) Description 09/27/2019 Abstract [facility] CONVERSIONS Dental, Provider, DDS Social History [...] Description 05/24/2025 3:15 PM EDT Clinical Support [facility] MED & PEDS [address] [place], [place] [phone] documented as of this encounter Visit Diagnoses Not on filedocumented in this encounter Care Teams Elementary Education Tutor Relationship Specialty Start Date End Date Jarod Santiago MD [address] [place], [place] [phone] PCP - General Internal Medicine 06/13/23 10/30/23 Tita Wade MD [address] [place] [id number] PCP - General Internal Medicine 10/31/23 documented as of this encounter
--- OUTSIDE RECORDS SUMMARY | 2025-05-10 12:29 | XMS_ITS | Encounter Summary ---
Author Organization [employer] Address [address] [facility] 7 [place] [address] Care Team Providers Care Manager Express Name Role Phone Jarod Santiago MD Primary Care Prov ider Tita Wade MD Primary Care Provider [phone] Encounter Details Date Type Department Care Team (Late st Contact Info) Description 09/30/2022 Refill [facility] MEDICINE [address] [place] [address] Tita Wade MD [address] [place], [place] [phone] Benign essential hypertension (Primary Dx) Social History [...] PM EDT Clinical Support [facility] MED & PEDS [address] [place] [address] documented as of this encounter Visit Diagnoses Diagnosis Benign essential hypertension- Primary Essential hypertension, benign documented in this encounter Care Teams Manager Express Relationship Specialty Start Date End Date Jarod Santiago MD [address] [place] [phone] PCP - General Internal Medicine 06/13/23 10/30/23 Tita Wade MD [address] [place] [phone] PCP - General Internal Medicine 10/31/23 documented as of this encounter
--- OUTSIDE RECORDS SUMMARY | 2025-05-10 12:29 | XMS_ITS | Encounter Summary ---
Author Organization [employer] Address [address] [place] [address] [address] [place] [address] Care Team Providers Care Blow Machine Tender Starch Spraying Name Role Phone Jarod Santiago MD Primary Care Prov ider Tita Wade MD Primary Care Provider [phone] Encounter Details Date Type Department Care Team (Latest Contact Info) Description 10/09/2020 Abstract [facility] CONVERSIONS Dental, Provider, DDS Social History Tobacco [...] Care Team ( st Contact Info) Description 05/24/2025 3:15 PM EDT Clinical Support [facility] MED & PEDS [address] [place], [place] [phone] documented as of this encounter Visit Diagnoses Not on filedocumented in this encounter Care Teams Blow Machine Tender Starch Spraying Relationship Specialty Start Date End Date Jarod Santiago MD [address] [place], [place] [phone] PCP - General Internal Medicine 06/13/23 10/30/23 Tita Wade MD [address] [place] [id number] PCP - General Internal Medicine 10/31/23 documented as of this encounter
[2025-05-10 14:41] LABS: Anion Gap 15 (12-20); Blood Urea Nitrogen 16 mg/dL (9-16); Calcium 9.8 mg/dL (8.4-10.2); Carbon Dioxide 26 mmol/L (22-29); Chloride 108 mmol/L (96-108); Estimated Glomerular Filt Rate 54; Potassium 4.5 mmol/L (3.3-5.1); Sodium 144 mmol/L (135-145)
== END 2025-05-10 10:25 | disposition home or self-care (01) ==
LOC: HO.CHCLDS 10:24
PROVIDERS: Visit Provider Pediatrics
DX: E11.9 Type 2 diabetes mellitus without complications (principal); Z79.4 Long term (current) use of insulin
CPT/HCPCS: 36415; 80048; 86140